=== PATIENT | female | born 1950 | race Caucasian/White ===

== ENCOUNTER → 2016-03-24 | Outpatient (REF) | payer MEDICARE, MEDICAID ==
[~2016-03-24] MED LIST: ACET-654 PO; AMLO5TAB2 PO; ASPI81TAEC PO; ATOR1TAB18 PO; BISA10SU PR; BISA10SU4 PR; CARV6.25 PO; ENAL5TAB PO; EXCETAB80 PO; EXCETAB81 PO; FISH1000 PO; IBUP40TA PO; LEG1TAB PO; MAGN250T9 PO; MAPA325T2 PO; METO25TAB PO; MIRA3350 PO; MUCI600T34 PO; ONDA1TAB15 PO; OXYC-517 PO; PANT40TA2 PO; PEG1POW PO; POTA10PO PO; POTA20TA PO; POTA99TA PO; SENN1TAB2 PO; SENN8.6T7 PO; TAGA200T3 PO; VITA20008 PO; ZOFR20TA PO
[2016-03-24 14:15] LABS: ANION GAP 8 MEQ/L (8-16); BLOOD UREA NITROGEN 17 MG/DL (7-18); CALCIUM LEVEL 9.2 MG/DL (8.8-10.2); CARBON DIOXIDE LEVEL 21 MEQ/L (21-32); CHLORIDE LEVEL 112 MEQ/L (98-107); GLOMERULAR FILTRATION RATE > 60.0 (>45); GLUCOSE, FASTING 76 MG/DL (80-110); POTASSIUM SERUM 4.7 MEQ/L (3.5-5.1); SODIUM LEVEL 141 MEQ/L (136-145)
== END ==
LOC: M SFHCPLAZ 09:51
PROVIDERS: ATTEND Physician Assistant Medical
DX: N13.2 Hydronephrosis with renal and ureteral calculous obstruction (principal)
CPT/HCPCS: 36415; 80048; G0463

== ENCOUNTER 2016-04-02 00:42 | Emergency (ER) | payer MEDICARE, MEDICAID ==
[2016-04-02] MEDS ORDERED: ISOVUE-370 76% 100ML VIAL (Q9967) As Ordered ONE (01:10)
[2016-04-02] MEDS ORDERED: ASPIRIN 81 MG CHEW TABLET As Ordered ONE (01:21)
[2016-04-02] MEDS ORDERED: MORPHINE 2 MG/ML 1ML SYRINGE As Ordered ONE (01:21)
[2016-04-02] MEDS ORDERED: ONDANSETRON 4MG/2ML VIAL (J2405) As Ordered ONE (01:21)
[2016-04-02 01:39] LABS: BASO % 0.4 % (0.0-1.0); EOS # 0.4 K/mm3 (0.0-0.50); EOS % 3.1 % (0.0-3.0); LARGE UNSTAINED CELL # 0.1 K/mm3 (0.0-0.4); LARGE UNSTAINED CELL % 0.8 % (0.0-4.0); LYMPH # 1.9 K/mm3 (1.5-4.5); LYMPH % 16.8 % (24.0-44.0); MEAN CORPUSCULAR HEMOGLOBIN 30.1 pg (27.0-33.0); MEAN CORPUSCULAR HGB CONC 32.5 g/dl (32.0-36.5); MEAN CORPUSCULAR VOLUME 92.4 fl (80.0-96.0); MONO # 0.5 K/mm3 (0.0-0.8); NEUTROPHILS # 8.4 K/mm3 (1.8-7.7); NEUTROPHILS % 74.8 % (36.0-66.0); PLATELET COUNT, AUTOMATED 356 k/mm3 (150-450); RED CELL DISTRIBUTION WIDTH 13.6 % (11.5-14.5); WHITE BLOOD COUNT 11.2 K/mm3 (4.0-10.0)
[2016-04-02 01:40] LABS: INR 0.98
[2016-04-02 01:49] LABS: ANION GAP 10 MEQ/L (8-16); BLOOD UREA NITROGEN 18 MG/DL (7-18); CALCIUM LEVEL 8.7 MG/DL (8.8-10.2); CARBON DIOXIDE LEVEL 22 MEQ/L (21-32); CHLORIDE LEVEL 111 MEQ/L (98-107); CREATININE FOR GFR 0.74 MG/DL (0.55-1.02); GLOMERULAR FILTRATION RATE > 60.0 (>45); GLUCOSE, FASTING 104 MG/DL (80-110); POTASSIUM SERUM 4.1 MEQ/L (3.5-5.1); SODIUM LEVEL 143 MEQ/L (136-145)
--- NOTE | 2016-04-02 02:20 | REPUSA ---
CLINICAL HISTORY: Dyspnea, exclude PE. TECHNIQUE: Multiple incremental axial, coronal and oblique images are obtained from the thoracic inle t to the upper abdomen. Intravenous contrast material was administered as per pulmonary embolism prot ocol. COMMENTS: There is excellent opacification of pulmonary arterial system without evidence for pulmonary embolism . Aorta is of normal caliber without evidence for dissection or aneurysm. There is no evidence of pleural or parenchymal mass. There are no pleural effusions. There is no evid ence of hilar or mediastinal lymphadenopathy. The heart and great vessels are within normal limits. Images of the upper abdomen demonstrate no evidence of adrenal mass. Moderate centrilobular emphysema . Bilateral apical pleural-parenchymal thickening. The bony structures are free of lytic or blastic lesions. Multilevel degenerative changes are seen in volving the visualized thoracolumbar spine. Scattered calcifications are seen involving the aorta and major branches compatible with atherosclero sis. IMPRESSION: No evidence for pulmonary embolism. Emphysema. Pulmonary hypertension. Thank you for your kind referral of this patient.
[2016-04-02] MEDS ORDERED: PERCOCET 5MG/325MG TAB As Ordered ONE (04:18)
--- NOTE | 2016-04-02 05:05 | EDDOCDS ---
Physician Documentation [facility] Name: Ruthy Farmer Age: 66 yrs Sex: Female : 1950 Arrival Date: 04/02/2016 Time: 00:42 Bed 7 Private MD: Disposition: 04/02/16 04:42 Discharged to Home/Self Care. Impression: Chest pain, unspecified. - Condition is Stable. - Discharge Instructions: Nonspecific Chest Pain. - Medication Reconciliation, Local Pharmacy Hours form. - Follow up: Dr. Jag Perdue; When: Call to arrange an appointment; Reason: Continuance of care. Follow up: Private Physician; When: Call to arrange an appointment; Reason: Continuance of care. - Problem is new. - Symptoms have improved. Historical: - Allergies: No known drug Allergies; - Home Meds: 1. acetaminophen 650 mg Oral cpER every 8 hours prn 2. aspirin 81 mg Oral tab 1 tab once daily 3. atorvastatin 80 mg oral tab 1 tab once daily 4. Bisacodyl 10 mg suppository Oral as needed 5. enalapril maleate 5 mg Oral tab once daily 6. Excedrin Extra Strength 250-250-65 mg Oral tab as needed 7. guaifenesin 600 mg Oral Ta12 BID PRN 8. metoprolol tartrate 25 mg Oral tab 2.5 tabs 2 times per day 9. oxycodone 5 mg Oral cap every 4 hours prn 10. pantoprazole 40 mg oral TbEC 1 tab once daily 11. polyethylene glycol 3350 17 gram oral pwpk 1 packet once daily 12. potassium chloride 20 mEq Oral pack daily 13. Senna Plus 8.6-50 mg oral tab 2 tabs twice a day 14. Zofran (as hydrochloride) 4 mg Oral tab every 6 hours - PMHx: GERD; Hypercholesterolemia; Hypertension; hypokalemia; Kidney stones; leg cramping; Migraine Headaches; ulcers; - PSHx: Gastric Bypass; Hip Arthroplasty, Left; - Social history: Smoking status: Patient uses tobacco products, heavy tobacco smoker. Patient/guardian denies using alcohol, street drugs, No barriers to communication noted, The patient speaks fluent Korean. - Family history: Not pertinent. - : The pt / caregiver states he / she is not on anticoagulants. Note only have info from computer. - Exposure Risk Screening:: None identified. Vital Signs: 04/02 01:04 BP 133 / 59; Pulse 73; Resp 16; Temp 98(TE); Pulse Ox 99% on R/A; Weight 41.28 kg / jp6 91.01 lbs; Height 5 ft. 5 in. (165.10 cm); Pain 6/10; 02:00 BP 128 / 78; Pulse 77; Resp 16; Pulse Ox 99% on R/A; Pain 4/10; jp6 03:21 BP 178 / 75 (auto/); jp6 03:23 Pulse Ox 96% ; jp6 03:24 Pulse 70 MON; Pulse Ox 97% ; jp6 04:21 BP 109 / 52 (auto/); jp6 04:21 Pulse 78 MON; jp6 05:01 BP 106 / 55; Pulse 71; Resp 16; Temp 98(O); Pulse Ox 98% on R/A; Pain 3/10; jp6 01:04 Body Mass Index 15.14 (41.28 kg, 165.10 cm) jp6 MDM: 00:45 ECG WITH READING ER PHYS+CARDIAG ordered. EDMS 00:45 ECG WITH READING ER PHYS+CARDIAG ordered. EDMS 00:56 Aspirin Chewable Tablet 324 mg PO once ordered. fg 00:56 Rivet Sticker/Pulse Ox/q 30 min VS ordered. fg 00:56 IV Saline Lock ordered. fg 00:56 Rhythm Strip to chart ordered. fg 00:56 Undress patient appropriately for examination ordered. fg 00:58 B-Type Natiuretic Peptide Ordered. EDMS 00:58 Basic Metabolic Profile Ordered. EDMS 00:58 CBC with Diff Ordered. EDMS 00:58 Cardiac Injury Profile Ordered. EDMS 00:58 Prothrombin Time Profile\E\INR Ordered. EDMS 00:58 Troponin Ordered. EDMS 00:58 portable chest Ordered. EDMS 01:04 CT Chest Angio R/O PE Ordered. EDMS 01:05 morphine 1 mg IVP once ordered. fg 01:05 Ondansetron 4 mg IVP once ordered. fg 02:50 Financial registration complete. hs2 02:54 [facility] Payment Agreement was scanned into [employer] and attached to record. hs2 04:07 Troponin Ordered. EDMS 04:13 oxyCODONE-acetaminophen 5 mg-325 mg 1 tabs PO once ordered. fg Administered Medications: 01:29 Drug: Ondansetron 4 mg Route: IVP; Site: left forearm; jp6 01:30 Drug: Aspirin 324 mg [aspirin 81 mg chewable tablet (4 tabs)] Route: PO; jp6 01:30 Drug: morphine 1 mg [morphine 2 mg/mL intravenous cartridge (0.5 mL)] Route: IVP; Site: jp6 left antecubital; 04:20 Drug: oxyCODONE-acetaminophen 1 tabs [oxycodone-acetaminophen 5 mg-325 mg tablet (1 cf2 tabs)] Route: PO; Signatures: Dispatcher [employer] EDZenobia Mo MD MD Suzi Negrete, Reg Reg hs2 Nesha Nascimento RN RN jp6 Daphney Vázquez RN cf2 The chart was reviewed and I authenticate all verbal orders and agree with the evaluation and treatment provided.Attachments: 02:54 [facility] Payment Agreement hs2 MTDD
--- NOTE | 2016-04-02 05:05 | EDDOCDS ---
Nurse's Notes [facility] Name: Ruthy Farmer Age: 66 yrs Sex: Female : 1950 Arrival Date: 04/02/2016 Time: 00:42 Bed 7 Private MD: Diagnosis: Chest pain, unspecified Presentation: 04/02 01:02 Presenting complaint: Patient states: Chest pain that started around 7pm tonight. jp6 Aspirin was not taken prior to arrival. Adult Sepsis Screening: The patient does not have new or worsening altered mentation. Patient's respiratory rate is less than 22. Systolic blood pressure is greater than 100. Patient has a qSOFA score of 0- Negative Sepsis Screen. Suicide/Homicide risk assessment- the patient denies having any suicidal and/or homicidal ideations and does not present with any other emotional, behavioral or mental health complaints. Status: Patient is not a technology services manager or dependent. Transition of care: patient was not received from another setting of care. 01:02 Acuity: ELIO Level 2 jp6 01:02 Method Of Arrival: Walkin/Carried/Asstd jp6 Triage Assessment: 01:04 General: Appears slender, uncomfortable, Behavior is anxious, appropriate for age, jp6 cooperative, restless. Pain: Location: chest Pain currently is 6 out of 10 on a pain scale. Pain does not radiate. Quality of pain is described as sharp. The patient is triaged at the bedside. See Assessment in Nurses Notes section of ED record. Neurological: No deficits noted. EENT: No deficits noted. Cardiovascular: Capillary refill < 3 seconds Heart tones S1 S2 Pulses are all present. Rhythm is sinus rhythm No ectopy. Chest pain is described as Pain is 6 out of 10 on a pain scale. radiates Does not radiate. episodes are continuous began since 7pm. Respiratory: No deficits noted. Breath sounds are clear bilaterally. GI: No deficits noted. : No deficits noted. Derm: Skin is pink, warm & dry. Musculoskeletal: No deficits noted. Historical: - Allergies: No known drug Allergies; - Home Meds: 1. acetaminophen 650 mg Oral cpER every 8 hours prn 2. aspirin 81 mg Oral tab 1 tab once daily 3. atorvastatin 80 mg oral tab 1 tab once daily 4. Bisacodyl 10 mg suppository Oral as needed 5. enalapril maleate 5 mg Oral tab once daily 6. Excedrin Extra Strength 250-250-65 mg Oral tab as needed 7. guaifenesin 600 mg Oral Ta12 BID PRN 8. metoprolol tartrate 25 mg Oral tab 2.5 tabs 2 times per day 9. oxycodone 5 mg Oral cap every 4 hours prn 10. pantoprazole 40 mg oral TbEC 1 tab once daily 11. polyethylene glycol 3350 17 gram oral pwpk 1 packet once daily 12. potassium chloride 20 mEq Oral pack daily 13. Senna Plus 8.6-50 mg oral tab 2 tabs twice a day 14. Zofran (as hydrochloride) 4 mg Oral tab every 6 hours - PMHx: GERD; Hypercholesterolemia; Hypertension; hypokalemia; Kidney stones; leg cramping; Migraine Headaches; ulcers; - PSHx: Gastric Bypass; Hip Arthroplasty, Left; - Social history: Smoking status: Patient uses tobacco products, heavy tobacco smoker. Patient/guardian denies using alcohol, street drugs, No barriers to communication noted, The patient speaks fluent Mexican. - Family history: Not pertinent. - : The pt / caregiver states he / she is not on anticoagulants. Note only have info from computer. - Exposure Risk Screening:: None identified. Screenin:14 Screening information is obtained from the patient. Fall risk: At risk due to prior 6 history of falls. Assistance ADL's: requires no assistance with activities of daily living. Abuse/DV Screen: The patient / caregiver reports he/she is: not in a situation that causes fear, pain or injury. Nutritional screening: No deficits noted. home support is adequate. 01:30 Advance Directives: Currently, there is a health care proxy, Ric Wilcox. [facility] Assessment: 01:14 Reassessment: see triage assessment. jp6 02:00 Reassessment: Patient appears in no apparent distress at this time. Patient states jp6 feeling better. Patient states symptoms have improved. General: Appears in no apparent distress, comfortable, Behavior is appropriate for age, cooperative. Pain: Denies pain. Neurological: Level of Consciousness is awake, alert, Oriented to person, place, time. EENT: No deficits noted. Cardiovascular: Rhythm is sinus rhythm No ectopy. Respiratory: No deficits noted. Airway is patent Respiratory effort is even, unlabored. GI: No deficits noted. : No deficits noted. Derm: Skin is pink, warm & dry. Musculoskeletal: No deficits noted. 03:11 Reassessment: Patient appears in no apparent distress at this time. Cardiovascular: jp6 Rhythm is sinus rhythm No ectopy. Respiratory: No deficits noted. Airway is patent Respiratory effort is even, unlabored. Derm: Skin is pink, warm & dry. 04:04 Reassessment: Patient appears in no apparent distress at this time. Pain: Denies pain. jp6 Cardiovascular: Rhythm is sinus rhythm No ectopy. Respiratory: Airway is patent Respiratory effort is even, unlabored. Derm: Skin is pink, warm & dry. 05:01 Reassessment: Patient appears in no apparent distress at this time. Patient states jp6 feeling better. Patient states symptoms have improved. Pain: Denies pain. Neurological: Level of Consciousness is awake, alert, Oriented to person, place, time. Cardiovascular: Rhythm is sinus rhythm No ectopy. Respiratory: Airway is patent Respiratory effort is even, unlabored. Derm: Skin is pink, warm & dry. Vital Signs: 01:04 BP 133 / 59; Pulse 73; Resp 16; Temp 98(TE); Pulse Ox 99% on R/A; Weight 41.28 kg; jp6 Height 5 ft. 5 in. (165.10 cm); Pain 6/10; 02:00 BP 128 / 78; Pulse 77; Resp 16; Pulse Ox 99% on R/A; Pain 4/10; jp6 03:21 BP 178 / 75 (auto/); jp6 03:23 Pulse Ox 96% ; jp6 03:24 Pulse 70 MON; Pulse Ox 97% ; jp6 04:21 BP 109 / 52 (auto/); jp6 04:21 Pulse 78 MON; jp6 05:01 BP 106 / 55; Pulse 71; Resp 16; Temp 98(O); Pulse Ox 98% on R/A; Pain 3/10; jp6 01:04 Body Mass Index 15.14 (41.28 kg, 165.10 cm) 6 Vitals: 01:04 Log In Time: April 02, 2016 at 00:50. 6 ED Course: 00:43 Patient visited by Kaleigh Sanchez. gjb 00:43 Patient moved to Waiting gjb 00:43 Patient moved to 7 gjb 00:48 Nesha Nascimento,RN is Primary Nurse. jp6 00:54 Pt greeted and oriented to ED. Patient advised of names of staff involved in care, anna location of call lopez, wait times and NPO status. Accompanied by Family Member, Patient has correct armband on for positive identification. Placed in gown. Bed in low position. Call light in reach. Side rails up X2. monitor car operator on. Pulse ox on. NIBP on. 00:54 EKG done. (by ED staff). Reviewed by Zenobia Lawrence MD. anna 00:55 Zenobia Lawrence MD is Attending Physician. fg 00:56 Patient visited by Zenobia Lawrence MD. fg 01:02 Triage Initiated jp6 01:14 The patient / caregiver is instructed regarding the plan of care and ED course. jp6 01:14 Missed attempts: 20 gauge X 2 in left wrist, in right forearm. jp6 01:30 No procedures done that require assistance. jp6 01:57 Patient visited by Nesha Nascimento RN. jp6 02:47 CT Chest Angio R/O PE Returned. EDMS 02:54 [facility] Payment Agreement was scanned into [employer] and attached to record. hs2 03:02 Patient visited by Nesha Nascimento RN. jp6 03:12 Inserted saline lock: 20 gauge in left antecubital area. jp6 04:04 Patient visited by Nesha Nascimento RN. jp6 04:13 Troponin Sent. cln 04:42 Jag Perdue MD is Referral Physician. fg 05:01 Discontinued lock intact, bleeding controlled, pressure dressing applied, No jp6 redness/swelling at site. Administered Medications: 01:29 Drug: Ondansetron 4 mg Route: IVP; Site: left forearm; jp6 01:30 Drug: Aspirin 324 mg [aspirin 81 mg chewable tablet (4 tabs)] Route: PO; jp6 01:30 Drug: morphine 1 mg [morphine 2 mg/mL intravenous cartridge (0.5 mL)] Route: IVP; Site: jp6 left antecubital; 04:20 Drug: oxyCODONE-acetaminophen 1 tabs [oxycodone-acetaminophen 5 mg-325 mg tablet (1 cf2 tabs)] Route: PO; Order Results: Lab Order: B-Type Natiuretic Peptide; SPEC'M 04/02/16 01:19 Test: BRAIN NATRIURETIC PEPTIDE; Value: 97.1; Range: <100; Units: PG/ML; Status: F Lab Order: Basic Metabolic Profile; SPEC'04/02/16 01:19 Test: GLUCOSE, FASTING; Value: 104; Range: 80-110; Units: MG/DL; Status: F Test: BLOOD UREA NITROGEN; Value: 18; Range: 7-18; Units: MG/DL; Status: F Test: CREATININE FOR GFR; Value: 0.74; Range: 0.55-1.02; Units: MG/DL; Status: F Test: GLOMERULAR FILTRATION RATE; Value: > 60.0; Range: >45; Status: F Test: SODIUM LEVEL; Value: 143; Range: 136-145; Units: MEQ/L; Status: F Test: POTASSIUM SERUM; Value: 4.1; Range: 3.5-5.1; Units: MEQ/L; Status: F Test: CHLORIDE LEVEL; Value: 111; Range: 98-107; Abnormal: Above high normal; Units: MEQ/L; Status: F Test: CARBON DIOXIDE LEVEL; Value: 22; Range: 21-32; Units: MEQ/L; Status: F Test: ANION GAP; Value: 10; Range: 8-16; Units: MEQ/L; Status: F Test: CALCIUM LEVEL; Value: 8.7; Range: 8.8-10.2; Abnormal: Below low normal; Units: MG/DL; Status: F Test Note: ; Units are mL/min/1.73 m2 Chronic Kidney Disease Staging per NKF: Stage I & II GFR >=60 Normal to Mildly Decreased Stage III GFR 30-59 Moderately Decreased Stage IV GFR 15-29 Severely Decreased Stage V GFR <15 Very Little GFR Left ESRD GFR <15 on TUBE CLEANING OPERATOR Lab Order: CBC with Diff; SPEC'04/02/16 01: Test: WHITE BLOOD COUNT; Value: 11.2; Range: 4.0-10.0; Abnormal: Above high normal; Units: K/mm3; Status: F Test: RED BLOOD COUNT; Value: 3.70; Range: 4.00-5.40; Abnormal: Below low normal; Units: M/mm3; Status: F Test: HEMOGLOBIN; Value: 11.1; Range: 12.0-16.0; Abnormal: Below low normal; Units: g/dl; Status: F Test: HEMATOCRIT; Value: 34.2; Range: 36.0-47.0; Abnormal: Below low normal; Units: %; Status: F Test: MEAN CORPUSCULAR VOLUME; Value: 92.4; Range: 80.0-96.0; Units: fl; Status: F Test: MEAN CORPUSCULAR HEMOGLOBIN; Value: 30.1; Range: 27.0-33.0; Units: pg; Status: F Test: MEAN CORPUSCULAR HGB CONC; Value: 32.5; Range: 32.0-36.5; Units: g/dl; Status: F Test: RED CELL DISTRIBUTION WIDTH; Value: 13.6; Range: 11.5-14.5; Units: %; Status: F Test: PLATELET COUNT, AUTOMATED; Value: 356; Range: 150-450; Units: k/mm3; Status: F Test: NEUTROPHILS %; Value: 74.8; Range: 36.0-66.0; Abnormal: Above high normal; Units: %; Status: F Test: LYMPH %; Value: 16.8; Range: 24.0-44.0; Abnormal: Below low normal; Units: %; Status: F Test: MONO %; Value: 4.0; Range: 0.0-5.0; Units: %; Status: F Test: EOS %; Value: 3.1; Range: 0.0-3.0; Abnormal: Above high normal; Units: %; Status: F Test: BASO %; Value: 0.4; Range: 0.0-1.0; Units: %; Status: F Test: LARGE UNSTAINED CELL %; Value: 0.8; Range: 0.0-4.0; Units: %; Status: F Test: NEUTROPHILS #; Value: 8.4; Range: 1.8-7.7; Abnormal: Above high normal; Units: K/mm3; Status: F Test: LYMPH #; Value: 1.9; Range: 1.5-4.5; Units: K/mm3; Status: F Test: MONO #; Value: 0.5; Range: 0.0-0.8; Units: K/mm3; Status: F Test: EOS #; Value: 0.4; Range: 0.0-0.50; Units: K/mm3; Status: F Test: BASO #; Value: 0.0; Range: 0.0-0.2; Units: K/mm3; Status: F Test: LARGE UNSTAINED CELL #; Value: 0.1; Range: 0.0-0.4; Units: K/mm3; Status: F Lab Order: Cardiac Injury Profile; 04/02/16 01:19 Test: CPK CREATINE PHOSPHOKINASE; Value: 34; Range: 26-192; Units: U/L; Status: F Test: CK-MB VALUE MASS; Value: 1.0; Range: 0.0-3.6; Units: NG/ML; Status: F Test: MB/CK RELATIVE INDEX; Value: 2.94; Range: < OR =4; Status: F Test Note: ; DIAGNOSIS CRITERIA MMB ng/ml Relative Index (RI) NON-AMI < or = 5 N/A IL ZONE > 5 < or = 4 AMI > 5 > 4 Lab Order: Prothrombin Time Profile\E\INR; 04/02/16 01:19 Test: PROTHROMBIN TIME; Value: 13.1; Range: 12.3-14.5; Units: SECONDS; Status: F Test: INR; Value: 0.98; Status: F Test Note: ; THERAPUTIC HUMAN INR VALUES INDICATIONS NORMAL RANGES PROPHYLAXIS/TREATMENT OF: VENOUS THROMBOSIS 2.0-3.0 PULMONARY EMBOLISM 2.0-3.0 PREVENTION OF SYSTEMIC EMBOLISM FROM: TISSUE HEART VALVES 2.0-3.0 ACUTE MYOCARDIAL INFARCTION 2.0-3.0 VALVULAR HEART DISEASE 2.0-3.0 ATRIAL FIBRILLATION 2.0-3.0 MECHANICAL VALVES(HIGH RISK) 2.5-3.5 RECURRENT MYOCARDIAL INFARCTION 2.5-3.5 Lab Order: Troponin; 04/02/16 01:19 Test: TROPONIN I; Value: < 0.02; Range: < 0.10; Units: NG/ML; Status: F Test Note: ; Troponin I Reference Interval for [employer] LOCI: 99th Percentile= 0.00-0.045 ng/ml Risk Stratification: <= 0.10 ng/ml Decreased Risk for Adverse Clinical Events. 0.10-1.50 ng/ml Increased Risk for Adverse Clinical Events. Evaluation of additional criterion and/or repeat testing in 2-6 hours is suggested to rule out myocardial damage. >= 1.50 ng/ml Indicative of Myocardial Injury. Lab Order: Troponin; SPEC'M 04/02/16 04:11 Test: TROPONIN I; Value: < 0.02; Range: < 0.10; Units: NG/ML; Status: F Test Note: ; Troponin I Reference Interval for [employer] LOCI: 99th Percentile= 0.00-0.045 ng/ml Risk Stratification: <= 0.10 ng/ml Decreased Risk for Adverse Clinical Events. 0.10-1.50 ng/ml Increased Risk for Adverse Clinical Events. Evaluation of additional criterion and/or repeat testing in 2-6 hours is suggested to rule out myocardial damage. >= 1.50 ng/ml Indicative of Myocardial Injury. Radiology Order: CT Chest Angio R/O PE Test: CT Chest Angio R/O PE REASON FOR EXAMINATION: Chest Pain; ; CLINICAL HISTORY: Dyspnea, exclude PE.; TECHNIQUE: Multiple incremental axial, coronal and oblique images are obtained from the thoracic inle; t to the upper abdomen. Intravenous contrast material was administered as per pulmonary embolism prot; ocol.; COMMENTS:; There is excellent opacification of pulmonary arterial system without evidence for pulmonary embolism; . Aorta is of normal caliber without evidence for dissection or aneurysm.; There is no evidence of pleural or parenchymal mass. There are no pleural effusions. There is no evid; ence of hilar or mediastinal lymphadenopathy. The heart and great vessels are within normal limits.; Images of the upper abdomen demonstrate no evidence of adrenal mass. Moderate centrilobular emphysema; . Bilateral apical pleural-parenchymal thickening.; The bony structures are free of lytic or blastic lesions. Multilevel degenerative changes are seen in; volving the visualized thoracolumbar spine.; Scattered calcifications are seen involving the aorta and major branches compatible with atherosclero; sis.; IMPRESSION:; No evidence for pulmonary embolism.; Emphysema.; Pulmonary hypertension.; Thank you for your kind referral of this patient.; ; Outcome: 04:42 Discharge ordered by Provider. fg 05:01 Discharge Assessment: Patient awake, alert and oriented x 3. No cognitive and/or jp6 functional deficits noted. Patient verbalized understanding of disposition instructions. patient administered narcotics - yes. Pt provided with safe discharge. The following High Risk Discharge criteria are identified: None. Discharged to home via wheelchair, with significant other. Condition: improved. Discharge instructions given to patient, Instructed on discharge instructions, follow up and referral plans. Demonstrated understanding of instructions, Pt was receptive of discharge instructions/ teaching. CT Study completed. Property sent home with patient. 05:03 Patient left the ED. jp6 Signatures: Dispatcher [employer] EDMS Idalia Briggs, FIREPROOF DOOR MAKER FIREPROOF DOOR MAKER Zenobia Sarah MD MD fg Beck, Gabriela gjb Suzi Negrete, Reg Reg hs2 Martine Kiser, FIREPROOF DOOR MAKER FIREPROOF DOOR MAKER Nesha Hagen,RN RN jp6 Daphney Vázquez,RN RN cf2 DERICK
--- NOTE | 2016-04-02 11:30 | REP ---
Semi upright AP portable chest 04/02/2016 Indication: Chest pain Comparison: PA and lateral chest 03/10/2016, CTA chest 03/07 Cardiomediastinal silhouette is of normal size. Atherosclerotic changes are noted in the thoracic aorta. There is biapical pleural thickening/scarring is apical small bullous change.. When compared with PA and lateral chest 03/10/2016 there is now cephalization of pulmonary vasculature consistent with pulmonary venous hypertension . Surgical clips are noted within the gastroesophageal junction Impression: Cardiac silhouette is of normal size. Biapical pleural thickening and bullous changes; COPD Pulmonary venous hypertension Signed by Daria Shore MD 04/02/2016 11:22 A
--- NOTE | 2016-04-03 07:18 | ECGEPIP ---
Stationary ECG Study [facility] - ED Test Date: 2016-04-02 Pat Name: JOE HILL Department: Room: - Gender: F Cone Baker Machine: NolascoB: [id number] Requested By: RIC Medel Order Number: [id number] Reading MD: Carmelina Maldonado Measurements Intervals [place] Rate: 76 P: 48 ID: [id number] QRS: 37 QRSD: 90 T: 63 QT: 342 QTc: 385 Interpretive Statements SINUS RHYTHM WITH SHORT ID INTERVAL MINIMAL VOLTAGE CRITERIA FOR LVH, CONSIDER NORMAL VARIANT MODERATE ST DEPRESSION Electronically Signed On 04-03-2016 7:18:44 EST by Carmelina Maldonado
--- NOTE | 2016-04-04 06:05 | EDDOCDS ---
Physician Documentation [facility] Name: Ruthy Farmer Age: 66 yrs Sex: Female : 1950 Arrival Date: 04/02/2016 Time: 00:42 Bed 7 Private MD: Disposition: 04/02/16 04:42 Discharged to Home/Self Care. Impression: Chest pain, unspecified. - Condition is Stable. - Discharge Instructions: Nonspecific Chest Pain. - Medication Reconciliation, Local Pharmacy Hours form. - Follow up: Dr. Jag Perdue; When: Call to arrange an appointment; Reason: Continuance of care. Follow up: Private Physician; When: Call to arrange an appointment; Reason: Continuance of care. - Problem is new. - Symptoms have improved. Historical: - Allergies: No known drug Allergies; - Home Meds: 1. acetaminophen 650 mg Oral cpER every 8 hours prn 2. aspirin 81 mg Oral tab 1 tab once daily 3. atorvastatin 80 mg oral tab 1 tab once daily 4. Bisacodyl 10 mg suppository Oral as needed 5. enalapril maleate 5 mg Oral tab once daily 6. Excedrin Extra Strength 250-250-65 mg Oral tab as needed 7. guaifenesin 600 mg Oral Ta12 BID PRN 8. metoprolol tartrate 25 mg Oral tab 2.5 tabs 2 times per day 9. oxycodone 5 mg Oral cap every 4 hours prn 10. pantoprazole 40 mg oral TbEC 1 tab once daily 11. polyethylene glycol 3350 17 gram oral pwpk 1 packet once daily 12. potassium chloride 20 mEq Oral pack daily 13. Senna Plus 8.6-50 mg oral tab 2 tabs twice a day 14. Zofran (as hydrochloride) 4 mg Oral tab every 6 hours - PMHx: GERD; Hypercholesterolemia; Hypertension; hypokalemia; Kidney stones; leg cramping; Migraine Headaches; ulcers; - PSHx: Gastric Bypass; Hip Arthroplasty, Left; - Social history: Smoking status: Patient uses tobacco products, heavy tobacco smoker. Patient/guardian denies using alcohol, street drugs, No barriers to communication noted, The patient speaks fluent Yakut. - Family history: Not pertinent. - : The pt / caregiver states he / she is not on anticoagulants. Note only have info from computer. - Exposure Risk Screening:: None identified. Vital Signs: 04/02 01:04 BP 133 / 59; Pulse 73; Resp 16; Temp 98(TE); Pulse Ox 99% on R/A; Weight 41.28 kg / jp6 91.01 lbs; Height 5 ft. 5 in. (165.10 cm); Pain 6/10; 02:00 BP 128 / 78; Pulse 77; Resp 16; Pulse Ox 99% on R/A; Pain 4/10; jp6 03:21 BP 178 / 75 (auto/); jp6 03:23 Pulse Ox 96% ; jp6 03:24 Pulse 70 MON; Pulse Ox 97% ; jp6 04:21 BP 109 / 52 (auto/); jp6 04:21 Pulse 78 MON; jp6 05:01 BP 106 / 55; Pulse 71; Resp 16; Temp 98(O); Pulse Ox 98% on R/A; Pain 3/10; jp6 01:04 Body Mass Index 15.14 (41.28 kg, 165.10 cm) jp6 MDM: 00:45 ECG WITH READING ER PHYS+CARDIAG ordered. EDMS 00:45 ECG WITH READING ER PHYS+CARDIAG ordered. EDMS 00:56 Aspirin Chewable Tablet 324 mg PO once ordered. fg 00:56 Leather Case Finisher/Pulse Ox/q 30 min VS ordered. fg 00:56 IV Saline Lock ordered. fg 00:56 Rhythm Strip to chart ordered. fg 00:56 Undress patient appropriately for examination ordered. fg 00:58 B-Type Natiuretic Peptide Ordered. EDMS 00:58 Basic Metabolic Profile Ordered. EDMS 00:58 CBC with Diff Ordered. EDMS 00:58 Cardiac Injury Profile Ordered. EDMS 00:58 Prothrombin Time Profile\E\INR Ordered. EDMS 00:58 Troponin Ordered. EDMS 00:58 portable chest Ordered. EDMS 01:04 CT Chest Angio R/O PE Ordered. EDMS 01:05 morphine 1 mg IVP once ordered. fg 01:05 Ondansetron 4 mg IVP once ordered. fg 02:50 Financial registration complete. hs2 02:54 [facility] Payment Agreement was scanned into [employer] and attached to record. hs2 04:07 Troponin Ordered. EDMS 04:13 oxyCODONE-acetaminophen 5 mg-325 mg 1 tabs PO once ordered. fg 13:49 T-Sheet-- Draft Copy was scanned into [employer] and attached to record. gb 13:49 ECG/EKG was scanned into [employer] and attached to record. gb 13:49 Trend VS was scanned into [employer] and attached to record. gb 13:50 Radiology Report was scanned into [employer] and attached to record. gb Administered Medications: 01:29 Drug: Ondansetron 4 mg Route: IVP; Site: left forearm; jp6 01:30 Drug: Aspirin 324 mg [aspirin 81 mg chewable tablet (4 tabs)] Route: PO; jp6 01:30 Drug: morphine 1 mg [morphine 2 mg/mL intravenous cartridge (0.5 mL)] Route: IVP; Site: jp6 left antecubital; 04:20 Drug: oxyCODONE-acetaminophen 1 tabs [oxycodone-acetaminophen 5 mg-325 mg tablet (1 cf2 tabs)] Route: PO; Signatures: Dispatcher [employer] EDMS Nanda Juan, Reg Reg gb Zenobia Lawrence MD MD Suzi Negrete, Reg Reg hs2 Nesha Nascimento,RN RN jp6 Daphney Vázquez RN cf2 The chart was reviewed and I authenticate all verbal orders and agree with the evaluation and treatment provided.Attachments: 02:54 [facility] Payment Agreement hs2 13:49 T-Sheet-- Draft Copy gb 13:49 ECG/EKG gb Chart Complete MTDD
--- NOTE | 2016-04-04 06:05 | EDDOCDS ---
Physician Documentation [facility] Name: Ruthy Farmer Age: 66 yrs Sex: Female : 1950 Arrival Date: 04/02/2016 Time: 00:42 Bed 7 Private MD: Disposition: 04/02/16 04:42 Discharged to Home/Self Care. Impression: Chest pain, unspecified. - Condition is Stable. - Discharge Instructions: Nonspecific Chest Pain. - Medication Reconciliation, Local Pharmacy Hours form. - Follow up: Dr. Jag Perdue; When: Call to arrange an appointment; Reason: Continuance of care. Follow up: Private Physician; When: Call to arrange an appointment; Reason: Continuance of care. - Problem is new. - Symptoms have improved. Historical: - Allergies: No known drug Allergies; - Home Meds: 1. acetaminophen 650 mg Oral cpER every 8 hours prn 2. aspirin 81 mg Oral tab 1 tab once daily 3. atorvastatin 80 mg oral tab 1 tab once daily 4. Bisacodyl 10 mg suppository Oral as needed 5. enalapril maleate 5 mg Oral tab once daily 6. Excedrin Extra Strength 250-250-65 mg Oral tab as needed 7. guaifenesin 600 mg Oral Ta12 BID PRN 8. metoprolol tartrate 25 mg Oral tab 2.5 tabs 2 times per day 9. oxycodone 5 mg Oral cap every 4 hours prn 10. pantoprazole 40 mg oral TbEC 1 tab once daily 11. polyethylene glycol 3350 17 gram oral pwpk 1 packet once daily 12. potassium chloride 20 mEq Oral pack daily 13. Senna Plus 8.6-50 mg oral tab 2 tabs twice a day 14. Zofran (as hydrochloride) 4 mg Oral tab every 6 hours - PMHx: GERD; Hypercholesterolemia; Hypertension; hypokalemia; Kidney stones; leg cramping; Migraine Headaches; ulcers; - PSHx: Gastric Bypass; Hip Arthroplasty, Left; - Social history: Smoking status: Patient uses tobacco products, heavy tobacco smoker. Patient/guardian denies using alcohol, street drugs, No barriers to communication noted, The patient speaks fluent Georgian. - Family history: Not pertinent. - : The pt / caregiver states he / she is not on anticoagulants. Note only have info from computer. - Exposure Risk Screening:: None identified. Vital Signs: 04/02 01:04 BP 133 / 59; Pulse 73; Resp 16; Temp 98(TE); Pulse Ox 99% on R/A; Weight 41.28 kg / jp6 91.01 lbs; Height 5 ft. 5 in. (165.10 cm); Pain 6/10; 02:00 BP 128 / 78; Pulse 77; Resp 16; Pulse Ox 99% on R/A; Pain 4/10; jp6 03:21 BP 178 / 75 (auto/); jp6 03:23 Pulse Ox 96% ; jp6 03:24 Pulse 70 MON; Pulse Ox 97% ; jp6 04:21 BP 109 / 52 (auto/); jp6 04:21 Pulse 78 MON; jp6 05:01 BP 106 / 55; Pulse 71; Resp 16; Temp 98(O); Pulse Ox 98% on R/A; Pain 3/10; jp6 01:04 Body Mass Index 15.14 (41.28 kg, 165.10 cm) jp6 MDM: 00:45 ECG WITH READING ER PHYS+CARDIAG ordered. EDMS 00:45 ECG WITH READING ER PHYS+CARDIAG ordered. EDMS 00:56 Aspirin Chewable Tablet 324 mg PO once ordered. fg 00:56 Batteryman/Pulse Ox/q 30 min VS ordered. fg 00:56 IV Saline Lock ordered. fg 00:56 Rhythm Strip to chart ordered. fg 00:56 Undress patient appropriately for examination ordered. fg 00:58 B-Type Natiuretic Peptide Ordered. EDMS 00:58 Basic Metabolic Profile Ordered. EDMS 00:58 CBC with Diff Ordered. EDMS 00:58 Cardiac Injury Profile Ordered. EDMS 00:58 Prothrombin Time Profile\E\INR Ordered. EDMS 00:58 Troponin Ordered. EDMS 00:58 portable chest Ordered. EDMS 01:04 CT Chest Angio R/O PE Ordered. EDMS 01:05 morphine 1 mg IVP once ordered. fg 01:05 Ondansetron 4 mg IVP once ordered. fg 02:50 Financial registration complete. hs2 02:54 [facility] Payment Agreement was scanned into [employer] and attached to record. hs2 04:07 Troponin Ordered. EDMS 04:13 oxyCODONE-acetaminophen 5 mg-325 mg 1 tabs PO once ordered. fg 13:49 T-Sheet-- Draft Copy was scanned into [employer] and attached to record. gb 13:49 ECG/EKG was scanned into [employer] and attached to record. gb 13:49 Trend VS was scanned into [employer] and attached to record. gb 13:50 Radiology Report was scanned into [employer] and attached to record. gb Administered Medications: 01:29 Drug: Ondansetron 4 mg Route: IVP; Site: left forearm; jp6 01:30 Drug: Aspirin 324 mg [aspirin 81 mg chewable tablet (4 tabs)] Route: PO; jp6 01:30 Drug: morphine 1 mg [morphine 2 mg/mL intravenous cartridge (0.5 mL)] Route: IVP; Site: jp6 left antecubital; 04:20 Drug: oxyCODONE-acetaminophen 1 tabs [oxycodone-acetaminophen 5 mg-325 mg tablet (1 cf2 tabs)] Route: PO; Signatures: Dispatcher [employer] EDMS Nanda Juan, Reg Reg gb Zenobia Lawrence MD MD Suzi Negrete, Reg Reg hs2 Nesha Nascimento,RN RN jp6 Daphney Vázquez RN cf2 The chart was reviewed and I authenticate all verbal orders and agree with the evaluation and treatment provided.Attachments: 02:54 [facility] Payment Agreement hs2 13:49 T-Sheet-- Draft Copy gb 13:49 ECG/EKG gb Chart Complete MTDD
--- NOTE | 2016-04-04 06:05 | EDDOCDS ---
Nurse's Notes [facility] Name: Ruthy Hill Age: 66 yrs Sex: Female : 1950 Arrival Date: 04/02/2016 Time: 00:42 Bed 7 Private MD: Diagnosis: Chest pain, unspecified Presentation: 04/02 01:02 Presenting complaint: Patient states: Chest pain that started around 7pm tonight. jp6 Aspirin was not taken prior to arrival. Adult Sepsis Screening: The patient does not have new or worsening altered mentation. Patient's respiratory rate is less than 22. Systolic blood pressure is greater than 100. Patient has a qSOFA score of 0- Negative Sepsis Screen. Suicide/Homicide risk assessment- the patient denies having any suicidal and/or homicidal ideations and does not present with any other emotional, behavioral or mental health complaints. Status: Patient is not a service desk agent or dependent. Transition of care: patient was not received from another setting of care. 01:02 Acuity: ELIO Level 2 jp6 01:02 Method Of Arrival: Walkin/Carried/Asstd jp6 Triage Assessment: 01:04 General: Appears slender, uncomfortable, Behavior is anxious, appropriate for age, jp6 cooperative, restless. Pain: Location: chest Pain currently is 6 out of 10 on a pain scale. Pain does not radiate. Quality of pain is described as sharp. The patient is triaged at the bedside. See Assessment in Nurses Notes section of ED record. Neurological: No deficits noted. EENT: No deficits noted. Cardiovascular: Capillary refill < 3 seconds Heart tones S1 S2 Pulses are all present. Rhythm is sinus rhythm No ectopy. Chest pain is described as Pain is 6 out of 10 on a pain scale. radiates Does not radiate. episodes are continuous began since 7pm. Respiratory: No deficits noted. Breath sounds are clear bilaterally. GI: No deficits noted. : No deficits noted. Derm: Skin is pink, warm & dry. Musculoskeletal: No deficits noted. Historical: - Allergies: No known drug Allergies; - Home Meds: 1. acetaminophen 650 mg Oral cpER every 8 hours prn 2. aspirin 81 mg Oral tab 1 tab once daily 3. atorvastatin 80 mg oral tab 1 tab once daily 4. Bisacodyl 10 mg suppository Oral as needed 5. enalapril maleate 5 mg Oral tab once daily 6. Excedrin Extra Strength 250-250-65 mg Oral tab as needed 7. guaifenesin 600 mg Oral Ta12 BID PRN 8. metoprolol tartrate 25 mg Oral tab 2.5 tabs 2 times per day 9. oxycodone 5 mg Oral cap every 4 hours prn 10. pantoprazole 40 mg oral TbEC 1 tab once daily 11. polyethylene glycol 3350 17 gram oral pwpk 1 packet once daily 12. potassium chloride 20 mEq Oral pack daily 13. Senna Plus 8.6-50 mg oral tab 2 tabs twice a day 14. Zofran (as hydrochloride) 4 mg Oral tab every 6 hours - PMHx: GERD; Hypercholesterolemia; Hypertension; hypokalemia; Kidney stones; leg cramping; Migraine Headaches; ulcers; - PSHx: Gastric Bypass; Hip Arthroplasty, Left; - Social history: Smoking status: Patient uses tobacco products, heavy tobacco smoker. Patient/guardian denies using alcohol, street drugs, No barriers to communication noted, The patient speaks fluent Danish. - Family history: Not pertinent. - : The pt / caregiver states he / she is not on anticoagulants. Note only have info from computer. - Exposure Risk Screening:: None identified. Screenin:14 Screening information is obtained from the patient. Fall risk: At risk due to prior 6 history of falls. Assistance ADL's: requires no assistance with activities of daily living. Abuse/DV Screen: The patient / caregiver reports he/she is: not in a situation that causes fear, pain or injury. Nutritional screening: No deficits noted. home support is adequate. 01:30 Advance Directives: Currently, there is a health care proxy, Ric Wilcox. [facility] Assessment: 01:14 Reassessment: see triage assessment. jp6 02:00 Reassessment: Patient appears in no apparent distress at this time. Patient states jp6 feeling better. Patient states symptoms have improved. General: Appears in no apparent distress, comfortable, Behavior is appropriate for age, cooperative. Pain: Denies pain. Neurological: Level of Consciousness is awake, alert, Oriented to person, place, time. EENT: No deficits noted. Cardiovascular: Rhythm is sinus rhythm No ectopy. Respiratory: No deficits noted. Airway is patent Respiratory effort is even, unlabored. GI: No deficits noted. : No deficits noted. Derm: Skin is pink, warm & dry. Musculoskeletal: No deficits noted. 03:11 Reassessment: Patient appears in no apparent distress at this time. Cardiovascular: jp6 Rhythm is sinus rhythm No ectopy. Respiratory: No deficits noted. Airway is patent Respiratory effort is even, unlabored. Derm: Skin is pink, warm & dry. 04:04 Reassessment: Patient appears in no apparent distress at this time. Pain: Denies pain. jp6 Cardiovascular: Rhythm is sinus rhythm No ectopy. Respiratory: Airway is patent Respiratory effort is even, unlabored. Derm: Skin is pink, warm & dry. 05:01 Reassessment: Patient appears in no apparent distress at this time. Patient states jp6 feeling better. Patient states symptoms have improved. Pain: Denies pain. Neurological: Level of Consciousness is awake, alert, Oriented to person, place, time. Cardiovascular: Rhythm is sinus rhythm No ectopy. Respiratory: Airway is patent Respiratory effort is even, unlabored. Derm: Skin is pink, warm & dry. Vital Signs: 01:04 BP 133 / 59; Pulse 73; Resp 16; Temp 98(TE); Pulse Ox 99% on R/A; Weight 41.28 kg; jp6 Height 5 ft. 5 in. (165.10 cm); Pain 6/10; 02:00 BP 128 / 78; Pulse 77; Resp 16; Pulse Ox 99% on R/A; Pain 4/10; jp6 03:21 BP 178 / 75 (auto/); jp6 03:23 Pulse Ox 96% ; jp6 03:24 Pulse 70 MON; Pulse Ox 97% ; jp6 04:21 BP 109 / 52 (auto/); jp6 04:21 Pulse 78 MON; jp6 05:01 BP 106 / 55; Pulse 71; Resp 16; Temp 98(O); Pulse Ox 98% on R/A; Pain 3/10; jp6 01:04 Body Mass Index 15.14 (41.28 kg, 165.10 cm) 6 Vitals: 01:04 Log In Time: April 02, 2016 at 00:50. 6 ED Course: 00:43 Patient visited by Kaleigh Sanchez. gjb 00:43 Patient moved to Waiting gjb 00:43 Patient moved to 7 gjb 00:48 Nesha Nascimento,RN is Primary Nurse. jp6 00:54 Pt greeted and oriented to ED. Patient advised of names of staff involved in care, anna location of call lopez, wait times and NPO status. Accompanied by Family Member, Patient has correct armband on for positive identification. Placed in gown. Bed in low position. Call light in reach. Side rails up X2. trauma nurse on. Pulse ox on. NIBP on. 00:54 EKG done. (by ED staff). Reviewed by Zenobia Lawrence MD. anna 00:55 Zenobia Lawrence MD is Attending Physician. fg 00:56 Patient visited by Zenobia Lawrence MD. fg 01:02 Triage Initiated jp6 01:14 The patient / caregiver is instructed regarding the plan of care and ED course. jp6 01:14 Missed attempts: 20 gauge X 2 in left wrist, in right forearm. jp6 01:30 No procedures done that require assistance. jp6 01:57 Patient visited by Nesha Nascimento RN. jp6 02:47 CT Chest Angio R/O PE Returned. EDMS 02:54 [facility] Payment Agreement was scanned into [employer] and attached to record. hs2 03:02 Patient visited by Nesha Nascimento RN. jp6 03:12 Inserted saline lock: 20 gauge in left antecubital area. jp6 04:04 Patient visited by Nesha Nascimento RN. jp6 04:13 Troponin Sent. cln 04:42 Jag Perdue MD is Referral Physician. fg 05:01 Discontinued lock intact, bleeding controlled, pressure dressing applied, No jp6 redness/swelling at site. 11:41 portable chest Returned. EDMS 13:49 T-Sheet-- Draft Copy was scanned into [employer] and attached to record. gb 13:49 ECG/EKG was scanned into [employer] and attached to record. gb 13:49 Trend VS was scanned into [employer] and attached to record. gb 13:50 Radiology Report was scanned into [employer] and attached to record. gb 04/03 07:41 EKG-ADULT Returned. EDMS Administered Medications: 04/02 01:29 Drug: Ondansetron 4 mg Route: IVP; Site: left forearm; jp6 01:30 Drug: Aspirin 324 mg [aspirin 81 mg chewable tablet (4 tabs)] Route: PO; jp6 01:30 Drug: morphine 1 mg [morphine 2 mg/mL intravenous cartridge (0.5 mL)] Route: IVP; Site: jp6 left antecubital; 04:20 Drug: oxyCODONE-acetaminophen 1 tabs [oxycodone-acetaminophen 5 mg-325 mg tablet (1 cf2 tabs)] Route: PO; Attachments: 13:49 Trend VS gb Order Results: Lab Order: B-Type Natiuretic Peptide; SPEC'M 04/02/16 01:19 Test: BRAIN NATRIURETIC PEPTIDE; Value: 97.1; Range: <100; Units: PG/ML; Status: F Lab Order: Basic Metabolic Profile; SPEC'M 04/02/16 01:19 Test: GLUCOSE, FASTING; Value: 104; Range: 80-110; Units: MG/DL; Status: F Test: BLOOD UREA NITROGEN; Value: 18; Range: 7-18; Units: MG/DL; Status: F Test: CREATININE FOR GFR; Value: 0.74; Range: 0.55-1.02; Units: MG/DL; Status: F Test: GLOMERULAR FILTRATION RATE; Value: > 60.0; Range: >45; Status: F Test: SODIUM LEVEL; Value: 143; Range: 136-145; Units: MEQ/L; Status: F Test: POTASSIUM SERUM; Value: 4.1; Range: 3.5-5.1; Units: MEQ/L; Status: F Test: CHLORIDE LEVEL; Value: 111; Range: 98-107; Abnormal: Above high normal; Units: MEQ/L; Status: F Test: CARBON DIOXIDE LEVEL; Value: 22; Range: 21-32; Units: MEQ/L; Status: F Test: ANION GAP; Value: 10; Range: 8-16; Units: MEQ/L; Status: F Test: CALCIUM LEVEL; Value: 8.7; Range: 8.8-10.2; Abnormal: Below low normal; Units: MG/DL; Status: F Test Note: ; Units are mL/min/1.73 m2 Chronic Kidney Disease Staging per NKF: Stage I & II GFR >=60 Normal to Mildly Decreased Stage III GFR 30-59 Moderately Decreased Stage IV GFR 15-29 Severely Decreased Stage V GFR <15 Very Little GFR Left ESRD GFR <15 on GROUP CARE WORKER Lab Order: CBC with Diff; SPEC'M 04/02/16 01:19 Test: WHITE BLOOD COUNT; Value: 11.2; Range: 4.0-10.0; Abnormal: Above high normal; Units: K/mm3; Status: F Test: RED BLOOD COUNT; Value: 3.70; Range: 4.00-5.40; Abnormal: Below low normal; Units: M/mm3; Status: F Test: HEMOGLOBIN; Value: 11.1; Range: 12.0-16.0; Abnormal: Below low normal; Units: g/dl; Status: F Test: HEMATOCRIT; Value: 34.2; Range: 36.0-47.0; Abnormal: Below low normal; Units: %; Status: F Test: MEAN CORPUSCULAR VOLUME; Value: 92.4; Range: 80.0-96.0; Units: fl; Status: F Test: MEAN CORPUSCULAR HEMOGLOBIN; Value: 30.1; Range: 27.0-33.0; Units: pg; Status: F Test: MEAN CORPUSCULAR HGB CONC; Value: 32.5; Range: 32.0-36.5; Units: g/dl; Status: F Test: RED CELL DISTRIBUTION WIDTH; Value: 13.6; Range: 11.5-14.5; Units: %; Status: F Test: PLATELET COUNT, AUTOMATED; Value: 356; Range: 150-450; Units: k/mm3; Status: F Test: NEUTROPHILS %; Value: 74.8; Range: 36.0-66.0; Abnormal: Above high normal; Units: %; Status: F Test: LYMPH %; Value: 16.8; Range: 24.0-44.0; Abnormal: Below low normal; Units: %; Status: F Test: MONO %; Value: 4.0; Range: 0.0-5.0; Units: %; Status: F Test: EOS %; Value: 3.1; Range: 0.0-3.0; Abnormal: Above high normal; Units: %; Status: F Test: BASO %; Value: 0.4; Range: 0.0-1.0; Units: %; Status: F Test: LARGE UNSTAINED CELL %; Value: 0.8; Range: 0.0-4.0; Units: %; Status: F Test: NEUTROPHILS #; Value: 8.4; Range: 1.8-7.7; Abnormal: Above high normal; Units: K/mm3; Status: F Test: LYMPH #; Value: 1.9; Range: 1.5-4.5; Units: K/mm3; Status: F Test: MONO #; Value: 0.5; Range: 0.0-0.8; Units: K/mm3; Status: F Test: EOS #; Value: 0.4; Range: 0.0-0.50; Units: K/mm3; Status: F Test: BASO #; Value: 0.0; Range: 0.0-0.2; Units: K/mm3; Status: F Test: LARGE UNSTAINED CELL #; Value: 0.1; Range: 0.0-0.4; Units: K/mm3; Status: F Lab Order: Cardiac Injury Profile; SPEC'M 04/02/16 01:19 Test: CPK CREATINE PHOSPHOKINASE; Value: 34; Range: 26-192; Units: U/L; Status: F Test: CK-MB VALUE MASS; Value: 1.0; Range: 0.0-3.6; Units: NG/ML; Status: F Test: MB/CK RELATIVE INDEX; Value: 2.94; Range: < OR =4; Status: F Test Note: ; DIAGNOSIS CRITERIA MMB ng/ml Relative Index (RI) NON-AMI < or = 5 N/A LI ZONE > 5 < or = 4 AMI > 5 > 4 Lab Order: Prothrombin Time Profile\E\INR; SPEC'04/02/16 01:19 Test: PROTHROMBIN TIME; Value: 13.1; Range: 12.3-14.5; Units: SECONDS; Status: F Test: INR; Value: 0.98; Status: F Test Note: ; THERAPUTIC HUMAN INR VALUES INDICATIONS NORMAL RANGES PROPHYLAXIS/TREATMENT OF: VENOUS THROMBOSIS 2.0-3.0 PULMONARY EMBOLISM 2.0-3.0 PREVENTION OF SYSTEMIC EMBOLISM FROM: TISSUE HEART VALVES 2.0-3.0 ACUTE MYOCARDIAL INFARCTION 2.0-3.0 VALVULAR HEART DISEASE 2.0-3.0 ATRIAL FIBRILLATION 2.0-3.0 MECHANICAL VALVES(HIGH RISK) 2.5-3.5 RECURRENT MYOCARDIAL INFARCTION 2.5-3.5 Lab Order: Troponin; SPEC'M 04/02/16 01:19 Test: TROPONIN I; Value: < 0.02; Range: < 0.10; Units: NG/ML; Status: F Test Note: ; Troponin I Reference Interval for [employer] [place] LOCI: 99th Percentile= 0.00-0.045 ng/ml Risk Stratification: <= 0.10 ng/ml Decreased Risk for Adverse Clinical Events. 0.10-1.50 ng/ml Increased Risk for Adverse Clinical Events. Evaluation of additional criterion and/or repeat testing in 2-6 hours is suggested to rule out myocardial damage. >= 1.50 ng/ml Indicative of Myocardial Injury. Lab Order: Troponin; SPEC'M 04/02/16 04:11 Test: TROPONIN I; Value: < 0.02; Range: < 0.10; Units: NG/ML; Status: F Test Note: ; Troponin I Reference Interval for Siem[employer] [place] LOCI: 99th Percentile= 0.00-0.045 ng/ml Risk Stratification: <= 0.10 ng/ml Decreased Risk for Adverse Clinical Events. 0.10-1.50 ng/ml Increased Risk for Adverse Clinical Events. Evaluation of additional criterion and/or repeat testing in 2-6 hours is suggested to rule out myocardial damage. >= 1.50 ng/ml Indicative of Myocardial Injury. Radiology Order: EKG-ADULT Test: EKG-ADULT REASON FOR EXAMINATION: Chest Pain; Stationary ECG Study; [facility] - ED; ; Test Date: 2016-04-02; Pat Name: RUTHY HILL Department:; Room: -; Gender: F Camp Recreation Specialist: francisco; : 1950 Requested By: ZENOBIA Medel; Order Number: [id number] Reading MD: Carmelina Maldonado; Measurements; Intervals [place]; Rate: 76 P: 48; MO: 118 QRS: 37; QRSD: 90 T: 63; QT: 342; QTc: 385; Interpretive Statements; SINUS RHYTHM WITH SHORT MO INTERVAL; MINIMAL VOLTAGE CRITERIA FOR LVH, CONSIDER NORMAL VARIANT; MODERATE ST DEPRESSION; ; Electronically Signed On 04-03-2016 7:18:44 EST by Carmelina Hill-Farias; Radiology Order: portable chest Test: portable chest REASON FOR EXAMINATION: Chest Pain; Semi upright AP portable chest 04/02/2016; ; Indication: Chest pain; ; Comparison: PA and lateral chest 03/10/2016, CTA chest 03/07; ; Cardiomediastinal silhouette is of normal size. Atherosclerotic changes are; noted in the thoracic aorta. There is biapical pleural thickening/scarring is; apical small bullous change.. When compared with PA and lateral chest 03/10/2016; there is now cephalization of pulmonary vasculature consistent with pulmonary; venous hypertension .; ; Surgical clips are noted within the gastroesophageal junction; ; Impression:; ; Cardiac silhouette is of normal size.; ; Biapical pleural thickening and bullous changes; COPD; ; Pulmonary venous hypertension; ; ; Signed by; Daria Shore MD 04/02/2016 11:22 A; Radiology Order: CT Chest Angio R/O PE Test: CT Chest Angio R/O PE REASON FOR EXAMINATION: Chest Pain; ; CLINICAL HISTORY: Dyspnea, exclude PE.; TECHNIQUE: Multiple incremental axial, coronal and oblique images are obtained from the thoracic inle; t to the upper abdomen. Intravenous contrast material was administered as per pulmonary embolism prot; ocol.; COMMENTS:; There is excellent opacification of pulmonary arterial system without evidence for pulmonary embolism; . Aorta is of normal caliber without evidence for dissection or aneurysm.; There is no evidence of pleural or parenchymal mass. There are no pleural effusions. There is no evid; ence of hilar or mediastinal lymphadenopathy. The heart and great vessels are within normal limits.; Images of the upper abdomen demonstrate no evidence of adrenal mass. Moderate centrilobular emphysema; . Bilateral apical pleural-parenchymal thickening.; The bony structures are free of lytic or blastic lesions. Multilevel degenerative changes are seen in; volving the visualized thoracolumbar spine.; Scattered calcifications are seen involving the aorta and major branches compatible with atherosclero; sis.; IMPRESSION:; No evidence for pulmonary embolism.; Emphysema.; Pulmonary hypertension.; Thank you for your kind referral of this patient.; ; Outcome: 04:42 Discharge ordered by Provider. fg 05:01 Discharge Assessment: Patient awake, alert and oriented x 3. No cognitive and/or jp6 functional deficits noted. Patient verbalized understanding of disposition instructions. patient administered narcotics - yes. Pt provided with safe discharge. The following High Risk Discharge criteria are identified: None. Discharged to home via wheelchair, with significant other. Condition: improved. Discharge instructions given to patient, Instructed on discharge instructions, follow up and referral plans. Demonstrated understanding of instructions, Pt was receptive of discharge instructions/ teaching. CT Study completed. Property sent home with patient. 05:03 Patient left the ED. jp6 Signatures: Dispatcher [employer] EDMS Nanda Juan, Reg Reg gb Chester, Idalia, GRAVITY PROSPECTING OBSERVER HELPER GRAVITY PROSPECTING OBSERVER HELPER Zenobia Sarah MD MD fg Beck, Gabriela gjb Suzi Negrete, Reg Reg hs2 Martine Kiser, GRAVITY PROSPECTING OBSERVER HELPER GRAVITY PROSPECTING OBSERVER HELPER Nesha HagenRN RN jp6 Daphney Vázquez,RN RN cf2 Chart Complete MARYD
== END 2016-04-02 05:03 | disposition home or self-care (01) ==
LOC: M ED 00:42
DX: R07.9 Chest pain, unspecified (principal); I10 Essential (primary) hypertension; I25.2 Old myocardial infarction; K21.9 Gastro-esophageal reflux disease without esophagitis; E78.00 Pure hypercholesterolemia, unspecified; E87.6 Hypokalemia; G43.909 Migraine, unspecified, not intractable, without status migrainosus; R25.2 Cramp and spasm; Z98.84 Bariatric surgery status; Z79.899 Other long term (current) drug therapy; Z79.82 Long term (current) use of aspirin; F17.200 Nicotine dependence, unspecified, uncomplicated
CPT/HCPCS: 71010; 71275; 80048; 82550; 82553; 83880; 84484; 85025; 85610; 93005; 93041; 96374; 96375; 99285; J2405; Q9967

== ENCOUNTER → 2016-06-02 | Outpatient (REF) | payer MEDICARE, MEDICAID | LOC: M SFHCPLAZ 10:32 | PROVIDERS: ATTEND Physician Assistant Medical | DX: Z11.59 Encounter for screening for other viral diseases (principal); Z53.8 Procedure and treatment not carried out for other reasons ==

== ENCOUNTER → 2016-08-27 | Outpatient (REF) | payer MEDICARE, MEDICAID ==
[2016-08-27 15:24] LABS: PERCENT SATURATION 14.9 % (13.2-37.4)
[2016-09-03 00:08] LABS: HEPATITIS C QUANTITATION HCV Not Detected IU/mL (.); NICOTINAMIDE 36.3 ng/mL (5.2-72.1); NICOTINIC ACID <5.0 ng/mL (0.0-5.0)
== END ==
LOC: M SFHCPLAZ 09:24
PROVIDERS: ATTEND Physician Assistant Medical
DX: Z11.59 Encounter for screening for other viral diseases (principal); E53.8 Deficiency of other specified B group vitamins; Z98.84 Bariatric surgery status; M81.0 Age-related osteoporosis without current pathological fracture; Z79.82 Long term (current) use of aspirin; Z79.899 Other long term (current) drug therapy; R25.2 Cramp and spasm

== ENCOUNTER → 2016-10-07 | Outpatient (REF) | payer MEDICARE, MEDICAID ==
[~2016-10-07] MED LIST changes: -ACET-654 PO; +ACET1TAB17 PO; -ATOR1TAB18 PO; +ATOR80TA59 PO; +METO25TA4 PO; -METO25TAB PO; -MUCI600T34 PO; +MUCI600T37 PO; -ONDA1TAB15 PO; +ONDA4TAB5 PO
[2016-10-07 12:29] LABS: VITAMIN B12 LEVEL > 2000 PG/ML (247-911)
[2016-10-07 12:31] LABS: ANION GAP 8 MEQ/L (8-16); BLOOD UREA NITROGEN 16 MG/DL (7-18); CALCIUM LEVEL 9.3 MG/DL (8.8-10.2); CARBON DIOXIDE LEVEL 23 MEQ/L (21-32); CHLORIDE LEVEL 114 MEQ/L (98-107); CREATININE FOR GFR 0.62 MG/DL (0.55-1.02); GLOMERULAR FILTRATION RATE > 60.0 (>45); GLUCOSE, FASTING 92 MG/DL (80-110); POTASSIUM SERUM 4.2 MEQ/L (3.5-5.1); SODIUM LEVEL 145 MEQ/L (136-145)
== END ==
LOC: M SFHCPLAZ 09:03
PROVIDERS: ATTEND Physician Assistant Medical
DX: R25.2 Cramp and spasm (principal); E55.9 Vitamin D deficiency, unspecified; E53.8 Deficiency of other specified B group vitamins
CPT/HCPCS: 80048; 82306; 82607; 83735; 96372; G0463; J3420

== ENCOUNTER → 2017-05-14 | Outpatient (CLI) | payer MEDICARE, MEDICAID | LOC: M RAD 11:00 | DX: Z87.81 Personal history of (healed) traumatic fracture (principal) | CPT/HCPCS: 73502 ==

== ENCOUNTER → 2017-10-25 | Outpatient (CLI) | payer MEDICARE, MEDICAID | LOC: M RAD 13:43 | DX: I65.23 Occlusion and stenosis of bilateral carotid arteries (principal) | CPT/HCPCS: 93880 ==

== ENCOUNTER → 2018-01-13 | Outpatient (REF) | payer MEDICARE, MEDICAID ==
[2018-01-13 15:54] LABS: BASO # 0.1 10^3/uL (0.0-0.2); BASO % 0.7 % (0.0-1.0); EOS # 0.3 10^3/uL (0.0-0.50); EOS % 2.5 % (0.0-3.0); HEMATOCRIT 33.8 % (36.0-47.0); HEMOGLOBIN 10.6 g/dl (12.0-15.5); IMMATURE GRANULOCYTE % 0.5 % (0-3.0); LYMPH # 2.4 10^3/uL (1.5-4.5); LYMPH % 18.4 % (24.0-44.0); MEAN CORPUSCULAR HGB CONC 31.4 g/dl (32.0-36.5); MEAN CORPUSCULAR VOLUME 86.2 fl (80.0-96.0); MONO # 0.8 10^3/uL (0.0-0.8); MONO % 6.3 % (0.0-5.0); NEUTROPHILS # 9.3 10^3/uL (1.8-7.7); NEUTROPHILS % 71.6 % (36.0-66.0); PLATELET COUNT, AUTOMATED 635 10^3/uL (150-450); RED BLOOD COUNT 3.92 10^6/uL (4.00-5.40); RED CELL DISTRIBUTION WIDTH 16.6 % (11.5-14.5)
[2018-01-13 16:48] LABS: ALBUMIN 3.2 GM/DL (3.2-5.2); ALBUMIN/GLOBULIN RATIO 0.91 (1.00-1.93); ALKALINE PHOSPHATASE 172 U/L (45-117); ALT/SGPT 19 U/L (12-78); ANION GAP 12 MEQ/L (8-16); AST/SGOT 11 U/L (7-37); BILIRUBIN,TOTAL 0.3 MG/DL (0.2-1.0); BLOOD UREA NITROGEN 19 MG/DL (7-18); CALCIUM LEVEL 9.5 MG/DL (8.8-10.2); CARBON DIOXIDE LEVEL 25 MEQ/L (21-32); CHLORIDE LEVEL 107 MEQ/L (98-107); CREATININE FOR GFR 0.81 MG/DL (0.55-1.30); GLOMERULAR FILTRATION RATE > 60.0 (>45); GLUCOSE, FASTING 120 MG/DL (70-100); POTASSIUM SERUM 3.8 MEQ/L (3.5-5.1); SODIUM LEVEL 144 MEQ/L (136-145); TOTAL PROTEIN 6.7 GM/DL (6.4-8.2)
[2018-01-13 17:09] LABS: TOTAL 25(OH) VITAMIN D 57.3 NG/ML (30.0-100.0)
[2018-01-13 17:10] LABS: PTH INTACT 22.7 PG/ML (18.5-88.0)
== END ==
LOC: M SFHCPLAZ 14:37
DX: E55.9 Vitamin D deficiency, unspecified (principal); E53.8 Deficiency of other specified B group vitamins; K27.9 Peptic ulcer, site unspecified, unspecified as acute or chronic, without hemorrhage or perforation; I10 Essential (primary) hypertension; Z79.899 Other long term (current) drug therapy
CPT/HCPCS: 82607

== ENCOUNTER → 2018-01-14 | Outpatient (REF) | payer MEDICARE, MEDICAID ==
[2018-01-14 15:58] LABS: APPEARANCE, URINE TURBID (CLEAR); BACTERIA, URINE AUTO 2+ (NEGATIVE); BILIRUBIN, URINE AUTO 2+ (NEGATIVE); BLOOD, URINE BLOOD NEGATIVE (NEGATIVE); COLOR, URINE AMBER (YELLOW); GLUCOSE, URINE (UA) AUTO NEGATIVE (NEGATIVE); KETONE, URINE AUTO NEGATIVE (NEGATIVE); LEUKOCYTE ESTERASE, URINE AUTO 3+ (NEGATIVE); NITRITE, URINE AUTO POSITIVE (NEGATIVE); PROTEIN, URINE AUTO 1+ mg/dL (NEGATIVE); RBC, URINE AUTO 0 /HPF (0-3); SPECIFIC GRAVITY URINE AUTO 1.025 (1.002-1.035); SQUAMOUS EPITHELIAL CELL UR AU 3 /HPF (0-6); WBC, URINE AUTO TNTC /HPF (0-3)
[2018-01-14 16:21] LABS: C REACTIVE PROTEIN QUANTITATIV 1.06 MG/DL (0.00-0.30)
[2018-01-14 16:45] LABS: LACTIC ACID SEPSIS PROTOCOL 1.3 MMOL/L (0.4-2.0)
[2018-01-14 17:08] LABS: ERYTHROCYTE SEDIMENTATION RATE 58 mm/hr (0-30)
== END ==
LOC: M SFHCPLAZ 12:52
DX: R50.9 Fever, unspecified (principal); D72.825 Bandemia
CPT/HCPCS: 83605

== ENCOUNTER → 2018-01-27 | Outpatient (REF) | payer MEDICARE, MEDICAID ==
[2018-01-27 15:51] LABS: BASO # 0.1 10^3/uL (0.0-0.2); BASO % 0.7 % (0.0-1.0); EOS # 0.3 10^3/uL (0.0-0.50); EOS % 2.7 % (0.0-3.0); HEMATOCRIT 32.6 % (36.0-47.0); HEMOGLOBIN 10.1 g/dl (12.0-15.5); IMMATURE GRANULOCYTE % 0.2 % (0-3.0); LYMPH % 31.4 % (24.0-44.0); MEAN CORPUSCULAR HEMOGLOBIN 26.2 pg (27.0-33.0); MEAN CORPUSCULAR VOLUME 84.7 fl (80.0-96.0); MONO # 0.9 10^3/uL (0.0-0.8); MONO % 9.9 % (0.0-5.0); NEUTROPHILS # 5.2 10^3/uL (1.8-7.7); NEUTROPHILS % 55.1 % (36.0-66.0); PLATELET COUNT, AUTOMATED 389 10^3/uL (150-450); RED BLOOD COUNT 3.85 10^6/uL (4.00-5.40); RED CELL DISTRIBUTION WIDTH 16.7 % (11.5-14.5); RETIC HEMOGLOBIN EQUIVALENT 29.5 pg (24-36); RETICULOCYTE # 74.3 10^9/L (17-77); RETICULOCYTE % 1.9 % (0.5-1.5); WHITE BLOOD COUNT 9.5 10^3/uL (4.0-10.0)
[2018-01-27 16:09] LABS: IRON (FE) 29 UG/DL (50-170); PERCENT SATURATION 7.3 % (13.2-45.0); TOTAL IRON BINDING CAPACITY 400 UG/DL (250-450)
[2018-01-27 16:25] LABS: ERYTHROCYTE SEDIMENTATION RATE 41 mm/hr (0-30)
== END ==
LOC: M SFHCPLAZ 13:42
DX: D72.825 Bandemia (principal); R50.9 Fever, unspecified
CPT/HCPCS: 83550

== ENCOUNTER → 2018-02-09 | Outpatient (REF) | payer MEDICARE, MEDICAID ==
[2018-02-09 16:28] LABS: VITAMIN B12 LEVEL 461 PG/ML (247-911)
== END ==
LOC: M SFHCPLAZ 14:06
DX: E53.8 Deficiency of other specified B group vitamins (principal)
CPT/HCPCS: 82607

== ENCOUNTER → 2018-02-25 | Outpatient (CLI) | payer MEDICARE, MEDICAID | LOC: M RAD 10:11 | DX: M16.12 Unilateral primary osteoarthritis, left hip (principal); Z87.81 Personal history of (healed) traumatic fracture | CPT/HCPCS: 78315 ==

== ENCOUNTER → 2018-08-03 | Outpatient (REF) | payer MEDICARE, MEDICAID ==
[~2018-08-03] MED LIST changes: -ACET1TAB17 PO; +ACET1TAB55 PO; -AMLO5TAB2 PO; +AMLO5TAB6 PO; +KLOR20TA42 PO; -PANT40TA2 PO; +PANT40TA3 PO; -POTA20TA PO; -SENN1TAB2 PO; +SENN1TAB40 PO; +SENN1TAB41 PO; -SENN8.6T7 PO; -ZOFR20TA PO; +ZOFR4TAB16 PO
== END ==
LOC: M SFHCPLAZ 15:41
PROVIDERS: ATTEND Physician Assistant Medical
DX: E53.8 Deficiency of other specified B group vitamins (principal)

== ENCOUNTER 2018-09-13 14:27 | Observation (INO) | payer MEDICARE, MEDICAID ==
[~2018-09-13] VITALS: Ht 160 cm; Wt 45.7 kg
[2018-09-13] MEDS ORDERED: ATOR40TA75 PO (14:40)
[2018-09-13] MEDS ORDERED: GABA-1171 PO (14:40)
[2018-09-13] MEDS ORDERED: FERR325T3 PO (14:40)
[2018-09-13 15:09] LABS: BASO # 0.1 10^3/uL (0.0-0.2); BASO % 0.5 % (0.0-1.0); EOS # 0.2 10^3/uL (0.0-0.50); EOS % 1.7 % (0.0-3.0); HEMATOCRIT 35.7 % (36.0-47.0); LYMPH # 3.4 10^3/uL (1.5-4.5); LYMPH % 28.7 % (24.0-44.0); MEAN CORPUSCULAR HEMOGLOBIN 30.2 pg (27.0-33.0); MEAN CORPUSCULAR HGB CONC 33.6 g/dl (32.0-36.5); MEAN CORPUSCULAR VOLUME 89.7 fl (80.0-96.0); MONO % 8.7 % (0.0-5.0); NEUTROPHILS % 60.1 % (36.0-66.0); PLATELET COUNT, AUTOMATED 298 10^3/uL (150-450); RED BLOOD COUNT 3.98 10^6/uL (4.00-5.40); WHITE BLOOD COUNT 11.7 10^3/uL (4.0-10.0)
--- NOTE | 2018-09-13 15:27 | REP ---
Clinical: Weakness and altered mental status. Comparison: 03/10/2016 . Findings: Atrophy with periventricular leukomalacia and microvascular ischemic changes are appreciated. The ventricles and sulci are symmetric. Castano-white differentiation is maintained. There is no evidence for acute intracranial hemorrhage, mass/mass effect, pathology or infarction. No extra-axial fluid collection. Calvarium is intact. Paranasal sinuses and mastoid air cells are clear. Impression: Atrophy and microvascular ischemic changes. No acute intracranial hemorrhage, infarction, or mass/mass effect. Electronically Signed by Tani Carias MD 09/13/2018 03:18 P
[2018-09-13 15:35] LABS: ALT/SGPT 17 U/L (12-78); BILIRUBIN,DIRECT 0.1 MG/DL (0.0-0.2); BILIRUBIN,TOTAL 0.5 MG/DL (0.2-1.0); BLOOD UREA NITROGEN 22 MG/DL (7-18); CALCIUM LEVEL 9.2 MG/DL (8.8-10.2); CARBON DIOXIDE LEVEL 24 MEQ/L (21-32); CHLORIDE LEVEL 109 MEQ/L (98-107); CK-MB VALUE MASS < 1.0 NG/ML (<3.6); CPK CREATINE PHOSPHOKINASE 30 U/L (26-192); CREATININE FOR GFR 0.91 MG/DL (0.55-1.30); GLOMERULAR FILTRATION RATE > 60.0 (>39); GLUCOSE, FASTING 105 MG/DL (70-100); MB/CK RELATIVE INDEX 3.33 (< OR =4); POTASSIUM SERUM 4.4 MEQ/L (3.5-5.1); SODIUM LEVEL 141 MEQ/L (136-145); THYROID STIMULATING HORMONE 0.529 uIU/ML (0.358-3.740); TOTAL PROTEIN 6.6 GM/DL (6.4-8.2); TROPONIN I 0.02 NG/ML (< 0.10)
--- NOTE | 2018-09-13 16:13 | REP ---
Clinical: Trauma. Technique: AP view of the pelvis. Findings: Evidence of prior left hip fixation. No acute fracture or dislocation. Impression: No acute fracture dislocation. Electronically Signed by Tani Carias MD 09/13/2018 04:05 P
--- NOTE | 2018-09-13 16:14 | REP ---
Clinical: Trauma . Comparison: 04/02/2016 . Technique: PA and lateral. Findings: The mediastinum and cardiac silhouette are normal. The lung godoy are clear and without acute consolidation, effusion, or pneumothorax. The skeletal structures are intact and normal. Impression: 1. No acute cardiopulmonary process. Electronically Signed by Tani Carias MD 09/13/2018 04:06 P
--- NOTE | 2018-09-13 16:52 | ECGEPIP ---
[facility] - ED Test Date: 2018-09-13 Pat Name: JOE HILL Department: Room: - Gender: Female Information Broker: CT : 1950 Requested By: JASON Pathak Order Number: [id number] Reading MD: Carmelina Maldonado Measurements Intervals [place] Rate: 77 P: 52 LA: 115 QRS: 44 QRSD: 82 T: 117 QT: 383 QTc: 433 Interpretive Statements SINUS RHYTHM WITH SHORT LA INTERVAL LEFT VENTRICULAR HYPERTROPHY AND ST-T CHANGE VS ISCHEMIA MORE PRONOUNCED COMPARED 04/02/16 Electronically Signed on 09-13-2018 15:44:53 EDT by Carmelina Maldonado
--- NOTE | 2018-09-13 17:48 | REP ---
Clinical: Altered mental status. Possible acute cerebral infarction. Technique: Standard noncontrast MRI of the brain sequencing. Comparison: 03/10/2016. Findings: Generalized age-related atrophy along with significant periventricular leukomalacia and microvascular ischemic changes are again identified. No acute intracranial hemorrhage or abnormal signal intensity foci are identified to suggest acute pathology. No mass or mass effect. No extra-axial fluid collection. Diffusion weighted sequence is without evidence for acute infarction. Ventricles are symmetric. Posterior fossa, midbrain and midline structures are relatively age-appropriate. Sinuses and mastoid air cells are clear. Impression: Age-related chronic atrophy with microvascular ischemic changes and periventricular leukomalacia. No evidence for acute intracranial hemorrhage, mass/mass effect, or infarction. Electronically Signed by Tani Carias MD 09/13/2018 05:40 P
--- NOTE | 2018-09-13 17:52 | REP ---
Clinical: Possible acute cerebral infarction. Technique: Axial noncontrast 3-D [id number] source images with multiplanar MIP reformations. Comparison: 03/10/2016 Findings:There are suggestions for atherosclerotic disease involving the internal carotid arteries without significant stenosis. There is symmetric appearance to the intracranial vasculature and [place], which appears relatively normal. The visualized portions of the vertebrobasilar system appear intact; dominant left vertebral artery noted. There is no evidence for arteriovenous malformation, aneurysm, or significant loss of vascular signal to suggest areas of decreased vascular supply. Impression: No evidence for aneurysm, AVM, or significant further pathology. Intracranial vasculature appears relatively symmetric and within normal limits. Electronically Signed by Tani Carias MD 09/13/2018 05:43 P
[2018-09-13] MEDS ORDERED: ACETAMINOPHEN TAB 650MG DOSE (2X325MG) PO PRN (18:00)
--- NOTE | 2018-09-13 18:20 | HPEPDOC ---
General Date of Admission 09/13/2018 Date of Service: Sep 13, 2018 Attending Physician: NICOLE PARR MD Chief Complaint The patient is a 68-year-old female admitted with a reason for visit of Can Not Ambulate. History of Present Illness Patient is a 68-year-old female, presenting to the emergency room status post fall at home with severe weakness. Patient has a past medical history significant for hypertension, hyperlipidemia, gastroesophageal reflux disease. Usually patient uses a walker but states she had just been watching TV and got up and fell over. She denies tripping, denies any lightheadedness, weakness, nausea, palpitations, vomiting prior to or after fall. She did states she has been falling quite frequently at home, and usually is picked up by boyfriend whenever she falls down. Initial assessment in the ED with CT brain was negative for acute intracranial process. Pelvic x-ray completed due to prior left hip fracture with concern for new trauma was negative for acute process. Chest x-ray was also negative for acute pulmonary process. Hematology panel showed white blood count elevated at 11.7. Due to suspected focal weakness. MRI of brain was also ordered to further further evaluate for possible infection. On evaluation, patient denies any chest pain, shortness of breath, chills, or malaise. She did complain of right hand numbness which she states has been ongoing for 6 months.Urinalysis was abnormal with high suspicion for urinary tract infection with elevated leukoesterase, white blood count, and bacteria Home Medications Scheduled Aspirin (Aspirin) 325 Mg Tablet, 325 MG PO DAILY Atorvastatin Calcium (Atorvastatin Calcium) 20 Mg Tablet, 80 MG PO DAILY Carvedilol (Carvedilol) 12.5 Mg Tablet, 12.5 MG PO BID Ceftriaxone Sodium (Ceftriaxone) 1 Gm Vial, 1 GRAM IV DAILY Enoxaparin Sodium (Lovenox) 40 Mg/0.4 Ml Syringe, 40 MG SC DAILY Allergies Coded Allergies: No Known Allergies (Verified , 11/08/03) Past Medical History Medical History Hypertension Hyperlipidemia GERD Surgical History Pyloroplasty. Gastric bypass surgery Colon surgery ORIF left hip. Colonoscopy Valvotomy Family History Significant Family History: No pertinent family hx Social History * Smoker: current smoker, less than 1 pack/day Alcohol: Denies Drugs: denies A-FIB/CHADSVASC A-FIB History Current/History of A-Fib/PAF?: No Current PO Anticoag Therapy: No Review of Systems Other systems A 10 point pertinent review of systems was completed, negative except as stated in the history of presenting illness. Physical Examination Other physical findings GENERAL: Cachectic NAD SKIN : Warm, dry intact HEENT: Atraumatic, normocephalic, PERRL, moist mucous membrane CARDIOVASCULAR: Regular rate and rhythm, S1S2, no JVD, no edema, distal pulses + and palpable RESP: CTAB, no accessory muscle use noted ABDOMEN: BS+ non distended non tender MS: no joint deformities NEURO: Alert and oriented x 3, CN2-12 grossly intact PSYCH: no anxiety or agitation, appropriate mood and affect. Vital Signs Vital Signs Date Time Temp Pulse Resp B/P (MAP) Pulse Ox O2 Delivery O2 Flow Rate FiO2 09/13/18 16:30 66 185/74 (111) 98 09/13/18 14:42 98.2 18 Room Air Laboratory Data Labs 24H Laboratory Tests 2 09/13/18 14:56: Immature Granulocyte % (Auto) 0.3, White Blood Count 11.7H, Red Blood Count 3.98L, Hemoglobin 12.0, Hematocrit 35.7L, Mean Corpuscular Volume 89.7, Mean Corpuscular Hemoglobin 30.2, Mean Corpuscular Hemoglobin Concent 33.6, Red Cell Distribution Width 15.7H, Platelet Count 298, Neutrophils (%) (Auto) 60.1, Lymphocytes (%) (Auto) 28.7, Monocytes (%) (Auto) 8.7H, Eosinophils (%) (Auto) 1.7, Basophils (%) (Auto) 0.5, Neutrophils # (Auto) 7.0, Lymphocytes # (Auto) 3.4, Monocytes # (Auto) 1.0H, Eosinophils # (Auto) 0.2, Basophils # (Auto) 0.1, Nucleated Red Blood Cells % (auto) 0.0, Anion Gap 8, Glomerular Filtration Rate > 60.0, Calcium Level 9.2, Aspartate Amino Transf (AST/SGOT) 9, Alanine Aminotransferase (ALT/SGPT) 17, Alkaline Phosphatase 117, Total Bilirubin 0.5, Direct Bilirubin 0.1, Total Creatine Kinase 30, Creatine Kinase MB < 1.0, Creatine Kinase MB Relative Index 3.33, Troponin I 0.02, Total Protein 6.6, Albumin 3.0L, Albumin/Globulin Ratio 0.83L, Thyroid Stimulating Hormone (TSH) 0.529 09/13/18 16:34: Urine Color YELLOW, Urine Appearance CLOUDYH, Urine pH 5.0, Urine Specific [place] 1.017, Urine Protein 1+H, Urine Glucose (UA) NEGATIVE, Urine Ketones NEGATIVE, Urine Blood 1+H, Urine Nitrite NEGATIVE, Urine Bilirubin 1+H, Urine Urobilinogen 0.2, Urine Leukocyte Esterase 3+H, Urine WBC (Auto) 167H, Urine RBC (Auto) 5H, Urine Hyaline Casts (Auto) 0, Urine Bacteria (Auto) 2+H, Urine Squamous Epithelial Cells 0, Urine Sperm (Auto) CBC/BMP Laboratory Tests 09/13/18 14:56 Red Blood Count 3.98 L, Mean Corpuscular Volume 89.7, Mean Corpuscular Hemoglobin 30.2, Mean Corpuscular Hemoglobin Concent 33.6, Red Cell Distribution Width 15.7 H, Neutrophils (%) (Auto) 60.1, Lymphocytes (%) (Auto) 28.7, Monocytes (%) (Auto) 8.7 H, Eosinophils (%) (Auto) 1.7, Basophils (%) (Auto) 0.5, Neutrophils # (Auto) 7.0, Lymphocytes # (Auto) 3.4, Monocytes # (Auto) 1.0 H, Eosinophils # (Auto) 0.2, Basophils # (Auto) 0.1 Microbiology Microbiology 09/13/18 Urine Culture, Received Pending Assessment/Plan Complicated urinary tract infection -Start antibiotic therapy with ceftriaxone -Follow urine culture findings and adjust antibiotic management as indicated Presyncope -CT brain has ruled out acute brain bleed -MRI brain completed. Follow findings -2-D echocardiogram to evaluate ejection fraction, rule out regional wall motion abnormalities -Telemetry for continuous monitoring for at least 72 hours to exclude any malignant arrhythmias -Aspirin, atorvastatin, blood pressure control Hypertension -Continue Coreg with target systolic blood pressure less than 140 mmHg Hyperlipidemia -Continue statin therapy DVT prophylaxis -Lovenox subcutaneous daily Plan / VTE VTE Prophylaxis Ordered?: Yes YMRA MURO Sep 13, 2018 18:20 NICOLE PARR MD Sep 25, 2018 22:45
[2018-09-13] MEDS ORDERED: CARV6.25 PO (18:35)
[2018-09-13] MEDS ORDERED: FISH1000 PO (18:35)
[2018-09-13] MEDS ORDERED: MELA5TAB31 PO (18:35)
[2018-09-13] MEDS ORDERED: cefTRIAXone SOD 1 GM in D5W MINI-BAG PLUS 50 ML IV SCH (20:00)
[2018-09-13 20:08] VITALS: BP 139/62
--- NOTE | 2018-09-13 20:16 | REPVR ---
EXAM: US Duplex Bilateral Extracranial Arteries EXAM DATE/TIME: 09/13/2018 7:12 PM CLINICAL HISTORY: 68 years old, female; Syncope and collapse TECHNIQUE: Imaging protocol: Real-time Duplex ultrasound scan of the Bilateral carotid and vertebral arteries combining gutierrez scale, color Doppler and spectral waveform analysis. COMPARISON: No relevant prior studies available. FINDINGS: Right common carotid artery: The right common carotid artery demonstrates velocity of 114 cm/s proximally, 106 cm/s mid and 130 cm/s distal. Right internal carotid artery: Heavy plaque is noted in the right carotid arteries throughout. The right proximal internal carotid artery demonstrates normal wave forms with velocity of 256 cm/s, mid is 135 cm/s and distal is 98 cm/s. Right ICA/CCA ratio: The right ICA/CCA ratio is 1.85. Right external carotid artery: The right external carotid artery demonstrates normal wave forms with velocity of 350 cm/s. Right vertebral artery: The right vertebral artery is not demonstrated. Left common carotid artery: The left common carotid artery proximally demonstrates normal waveforms with velocity 79 cm/s, mid is 103 cm/s and distal is 101 cm/s. Left internal carotid artery: The left carotid arteries demonstrate heavy plaque throughout. The left internal carotid artery proximally demonstrates velocity of 248 cm/s, mid is 139 cm/s and distal is 132 cm/s. Left ICA/CCA ratio: The left ICA/CCA ratio is 2.45. Left external carotid artery: Left external carotid artery demonstrates velocity of 660 cm/s. Left vertebral artery: The left vertebral artery demonstrates antegrade flow with velocity of 50 cm/s. IMPRESSION: 1. Heavy plaque in the carotid arteries bilaterally. 2. Bilateral stenoses of the internal carotid arteries estimated at 50-69%. 3. Stenoses of the external carotid arteries bilaterally estimated at 50-69% on the right and 70-94% on the left. COMMENT: Carotid Stenosis Reference using SRU criteria: Mild: less than 50% stenosis. ICA PSV is less than 125 cm/second and plaque or intimal thickening is visible. Moderate: 50-69% stenosis. ICA PSV is 125 to 230 cm/second and plaque is visible. Severe: 70-94% stenosis. ICA PSV is more than 230 cm/second and visible plaque and lumen narrowing are seen. Near occlusion: 95-99% stenosis. ICA PSV is variable and significant plaque and luminal narrowing are seen. Occluded: 100% stenosis. No flow identified. Electronically signed by: Chadwick Gallego On 09/13/2018 20:15:40 PM
[2018-09-13] MEDS: CARVedilol 12.5 MG TAB PO SCH (21:02)
[2018-09-14 02:00] VITALS: BP 133/62
[2018-09-14 06:00] VITALS: BP 136/64
[2018-09-14 06:35] LABS: HEMATOCRIT 35.7 % (36.0-47.0); HEMOGLOBIN 11.6 g/dl (12.0-15.5); MEAN CORPUSCULAR HEMOGLOBIN 28.8 pg (27.0-33.0); MEAN CORPUSCULAR HGB CONC 32.5 g/dl (32.0-36.5); MEAN CORPUSCULAR VOLUME 88.6 fl (80.0-96.0); PLATELET COUNT, AUTOMATED 287 10^3/uL (150-450); RED BLOOD COUNT 4.03 10^6/uL (4.00-5.40); WHITE BLOOD COUNT 9.5 10^3/uL (4.0-10.0)
[2018-09-14 06:46] LABS: BLOOD UREA NITROGEN 19 MG/DL (7-18); CARBON DIOXIDE LEVEL 25 MEQ/L (21-32); CHLORIDE LEVEL 108 MEQ/L (98-107); CREATININE FOR GFR 0.87 MG/DL (0.55-1.30); GLOMERULAR FILTRATION RATE > 60.0 (>39); GLUCOSE, FASTING 98 MG/DL (70-100); MAGNESIUM LEVEL 2.1 MG/DL (1.8-2.4); SODIUM LEVEL 139 MEQ/L (136-145)
[2018-09-14] MEDS ORDERED: ASPIRIN 325 MG TAB PO SCH (09:00)
[2018-09-14] MEDS ORDERED: ATORVASTATIN 20 MG TAB PO SCH (09:00)
[2018-09-14] MEDS ORDERED: PREVNAR 13 VACCINE SYRINGE (CPT CODE:90670) IM ONE (09:00)
[2018-09-14] MEDS ORDERED: ENOXAPARIN 40 MG/0.4 ML SYRINGE (J1650) SC SCH (09:00)
[2018-09-14 09:48] VITALS: BP 124/63
[2018-09-14] MEDS: CARVedilol 12.5 MG TAB PO SCH (09:48)
--- NOTE | 2018-09-14 11:28 | IPNPDOC ---
Subjective Date Seen The patient was seen on 09/14/18. Subjective Chief Complaint/HPI FALL Events since last encounter S/p near syncopal event at home. Workup completed in ED: CT scan, MRI/MRA: see reports for results. Carotid US completed with signs of stenosis. Echo ordered and pending completion. PT/OT eval pending. Today patient denies c/o. Skin: Denies: Rash, Lesions, Breakdown Pulmonary: Denies: Dyspnea, Cough Cardiovascular: Denies: Chest Pain, Palpitations, Orthopnea, Paroxysmal Noc. Dyspnea, Lt Headedness Gastrointestinal: Denies: Nausea, Vomiting, Abdominal Pain, Diarrhea, Constipation Genitourinary: Denies: Dysuria, Frequency, Incontinence, Retention Neurological: Reports: Weakness; Denies: Numbness Objective Physical Examination General Exam: Positive: Alert, No Acute Distress Neck Exam: Positive: Supple, Other (bruit Left carotid); Negative: JVD, thyromegaly Chest Exam: Positive: Diminished Heart Exam: Positive: Rate Normal, Regular Rhythm, Normal S1, Normal S2; Negative: Murmurs, Rubs Telemetry: Positive: No significant arrhythmia Abdomen Exam: Positive: Normal bowel sounds, Soft; Negative: Tenderness, Hepatospenomegaly Extremity Exam: Negative: Edema Skin Exam: Positive: Nl turgor and temperature; Negative: Rash, Breakdown Psych Exam: Positive: Mental status NL, Oriented x 3 Assessment /Plan Problems (1) Carotid stenosis, bilateral Status: Acute Problem Text: IMPRESSION: 1. Heavy plaque in the carotid arteries bilaterally. 2. Bilateral stenoses of the internal carotid arteries estimated at 50-69%. 3. Stenoses of the external carotid arteries bilaterally estimated at 50-69% on the right and 70-94% on the left. (2) Near syncope Status: Acute Problem Text: Echo pending. + Carotid artery stenosis. Will need vascular consult. (3) Fall Status: Acute (4) HTN (hypertension) Status: Chronic Problem Text: On carvedilol 6.25 mg po bidat home. Increased to 12.5 mg bid due to elevated BP during recent admission. Echo pending. (5) Gastroesophageal reflux disease Status: Chronic Plan/VTE VTE Prophylaxis Ordered?: Yes VS, I&O, 24H, Fishbone Vital Signs/I&O Vital Signs Date Time Temp Pulse Resp B/P (MAP) Pulse Ox O2 Delivery O2 Flow Rate FiO2 09/14/18 09:48 73 124/63 09/14/18 06:00 98.3 18 98 09/13/18 20:01 Room Air I&O- Last 24 Hours up to 6 AM 09/14/18 06:00 Intake Total 230 ml Output Total 860 ml Balance -630 ml Laboratory Data 24H LABS Laboratory Tests 2 09/13/18 14:56: Immature Granulocyte % (Auto) 0.3, White Blood Count 11.7H, Red Blood Count 3.98L, Hemoglobin 12.0, Hematocrit 35.7L, Mean Corpuscular Volume 89.7, Mean Corpuscular Hemoglobin 30.2, Mean Corpuscular Hemoglobin Concent 33.6, Red Cell Distribution Width 15.7H, Platelet Count 298, Neutrophils (%) (Auto) 60.1, Lymphocytes (%) (Auto) 28.7, Monocytes (%) (Auto) 8.7H, Eosinophils (%) (Auto) 1.7, Basophils (%) (Auto) 0.5, Neutrophils # (Auto) 7.0, Lymphocytes # (Auto) 3.4, Monocytes # (Auto) 1.0H, Eosinophils # (Auto) 0.2, Basophils # (Auto) 0.1, Nucleated Red Blood Cells % (auto) 0.0, Anion Gap 8, Glomerular Filtration Rate > 60.0, Calcium Level 9.2, Aspartate Amino Transf (AST/SGOT) 9, Alanine Aminotransferase (ALT/SGPT) 17, Alkaline Phosphatase 117, Total Bilirubin 0.5, Direct Bilirubin 0.1, Total Creatine Kinase 30, Creatine Kinase MB < 1.0, Creatine Kinase MB Relative Index 3.33, Troponin I 0.02, Total Protein 6.6, Albumin 3.0L, Albumin/Globulin Ratio 0.83L, Thyroid Stimulating Hormone (TSH) 0.529 09/13/18 16:34: Urine Color YELLOW, Urine Appearance CLOUDYH, Urine pH 5.0, Urine Specific [place] 1.017, Urine Protein 1+H, Urine Glucose (UA) NEGATIVE, Urine Ketones NEGATIVE, Urine Blood 1+H, Urine Nitrite NEGATIVE, Urine Bilirubin 1+H, Urine Urobilinogen 0.2, Urine Leukocyte Esterase 3+H, Urine WBC (Auto) 167H, Urine RBC (Auto) 5H, Urine Hyaline Casts (Auto) 0, Urine Bacteria (Auto) 2+H, Urine Squamous Epithelial Cells 0, Urine Sperm (Auto) 09/14/18 06:00: Nucleated Red Blood Cells % (auto) 0.0, Anion Gap 6L, Glomerular Filtration Rate > 60.0, Calcium Level 9.0, Blood Urea Nitrogen 19H, Creatinine 0.87, Sodium Level 139, Potassium Level 4.0, Chloride Level 108H, Carbon Dioxide Level 25, Magnesium Level 2.1 CBC/BMP Laboratory Tests 09/13/18 14:56 Red Blood Count 3.98 L, Mean Corpuscular Volume 89.7, Mean Corpuscular Hemoglobin 30.2, Mean Corpuscular Hemoglobin Concent 33.6, Red Cell Distribution Width 15.7 H, Neutrophils (%) (Auto) 60.1, Lymphocytes (%) (Auto) 28.7, Monocytes (%) (Auto) 8.7 H, Eosinophils (%) (Auto) 1.7, Basophils (%) (Auto) 0.5, Neutrophils # (Auto) 7.0, Lymphocytes # (Auto) 3.4, Monocytes # (Auto) 1.0 H, Eosinophils # (Auto) 0.2, Basophils # (Auto) 0.1 09/14/18 06:00 Red Blood Count 4.03, Mean Corpuscular Volume 88.6, Mean Corpuscular Hemoglobin 28.8, Mean Corpuscular Hemoglobin Concent 32.5, Red Cell Distribution Width 15.6 H, Calcium Level 9.0 Microbiology Microbiology 09/13/18 Urine Culture, Received Pending Lety Goldstein [facility] Sep 14, 2018 11:28
[2018-09-14 11:50] VITALS: BP 127/66
[2018-09-14] MEDS ORDERED: ATOR1TAB21 PO (12:00)
[2018-09-14] MEDS ORDERED: CARV12.5 PO (12:00)
[2018-09-14] MEDS ORDERED: LOVE1INJ SC (12:00)
[2018-09-14] MEDS ORDERED: ASPI-1 PO (12:00)
[2018-09-14] MEDS ORDERED: CEFT1INJ5 IV (12:00)
--- NOTE | 2018-09-14 13:42 | DSES ---
DATE OF ADMISSION: 09/13/2018 DATE OF DISCHARGE: 09/14/2018 ATTENDING PHYSICIAN: Dr. Simeon Deutsch PRIMARY CARE PROVIDER (PCP): LEWIS Villalobos, and Bart Branch MD. HISTORY OF PRESENT ILLNESS: 68-year-old female who presented to the emergency room at [facility] status post fall at home. Patient states normally she uses a walker. She had been watching TV, stood, and simply fell over. She had difficulty remembering the exact mechanism of her fall. She did not trip over anything. She does have a past history of recurrent falls over the last 6 months secondary to generalized weakness. Emergency department (ED) workup includes head CT, which showed atrophy and microvascular ischemic changes. X-ray of the pelvis ruled out fracture or dislocation. Chest x-ray with no acute disease. Brain MRI and MRA noted to have age-related chronic atrophy with microvascular ischemic changes and periventricular leukomalacia. No evidence of aneurysm, arteriovenous malformation (AVM), or further pathology on the MRA. Carotid ultrasound was completed after MRA of the brain revealed suggestions for atherosclerotic disease involving the carotid arteries. Ultrasound results proved positive for carotid artery stenosis, heavy plaque in bilateral arteries. Worst part of the stenosis is in the left. Patient initially was hypertensive on admission. Her carvedilol was increased from 6.25 mg to 12.5 mg by mouth twice a day with improvement in her pressures. Most recent blood pressure 124/63 with a heart rate of 73. Patient has remained afebrile. Heart rate has remained stable in the 60s. Telemetry has remained uneventful. Patient's oxygen saturation has remained in the upper 90s with no supplementation. She is on room air. Most recent labs show a hemoglobin and hematocrit of 11 and 35, platelets of 287. Basic metabolic panel (BMP) is unremarkable with normal electrolytes and a creatinine of 0.87. Patient was found to have an abnormal urinalysis (UA) with 1+ protein, 1+ blood, negative nitrites, 1+ bilirubin, and 3+ leukocytes. Urine culture is pending. She was placed on ceftriaxone on 1 gram IV every 24 hours until culture is obtained. PHYSICAL EXAMINATION: Cardiovascular: Heart rate and rhythm are regular. Pulmonary: Lungs are clear. Abdomen: Soft and nontender. Neck: Shows no palpable lymphadenopathy. She does have faint bilateral carotid bruits. Bilateral lower extremities: Without any edema. Neurological: Patient is alert and oriented times three. Psychiatric: Affect is appropriate. Conversation is congruent. She is mildly anxious. ASSESSMENT: 1. Near syncope with fall. 2. Carotid artery stenosis. 3. Hypertension. 4. Gastroesophageal reflux disease (GERD). 5. Abnormal urinalysis. PLAN: Patient will be discharged via transfer to [facility] under the care of Dr. Escalante for vascular intervention of carotid artery stenosis. Risks and benefits of transfer were reviewed with patient, and she is agreeable to transfer. Case was reviewed with attending, Dr. Simeon Deutsch, and he is agreeable to current plan of care. Edited: [facility] 09/15/2018 [id number]
[2018-09-14 14:00] VITALS: BP 146/67
--- NOTE | 2018-09-14 16:10 | ECHO ---
DATE OF PROCEDURE: 09/14/2018 AGE: 68 GENDER: Female HEIGHT: 63 inches WEIGHT: 119 pounds BODY SURFACE AREA: 1.55 m2 PATIENT LOCATION: Inpatient, [address] [place] [address], room 4224 REFERRING PHYSICIAN: DILLON James INDICATION: Syncope. 2D MEASUREMENTS RV: 3.1 cm LV: 3.8 cm Septum: 1.0 cm Posterior wall: 1.0 cm Aortic root: 2.8 cm LA: 3.4 cm LVEF: 70% DOPPLER MEASUREMENTS: AV: 1.39 m/s LVOT: 0.9 m/s LVOT diameter: 1.8 cm MV-E: 60, A: 88, EA ratio: 0.7 Early mitral deceleration time: 275 ms E prime: 5.5, A prime: 8, E/E prime ratio: 11 PCWP: 15 mmHg PV: 0.8 m/s Pulmonary artery acceleration time: 116 ms RVSP: 41 mmHg IVC: 1.7 cm COMMENTS Normal sinus rhythm at 64 bpm. M-mode and two-dimensional echocardiography was performed with pulsed, continuous wave, color flow and tissue Doppler studies. Normal left ventricular size, wall thickness and hyperkinetic wall motion. Normal left atrial size with some Doppler evidence of an impairment of LV diastolic function and estimated mean left atrial pressure upper limits of normal (likely normal for her age). Normal right heart chamber sizes and motion with Doppler evidence of moderate pulmonary hypertension. Normal IVC size and collapse against an elevated central venous pressure. Mild aortic valvular sclerosis without functional abnormality. Mild degenerative changes of the mitral valvular apparatus with mild insufficiency. Normal appearing tricuspid valve with mild insufficiency. No apparent intracardiac mass or pericardial effusion. Normal aortic root size. Unable to clearly identify any structural or functional abnormality that would cause syncope or collapse.
== END 2018-09-14 16:29 | disposition other institution (70) ==
LOC: M ED 14:27 → EDBD 14:27 → M ED INP 17:47 → INTOOBSV 17:47 → M MSPAV 20:08
PROVIDERS: ADMIT Hospitalist; ATTEND Family Medicine
DX: R55 Syncope and collapse (principal); R29.6 Repeated falls; I65.23 Occlusion and stenosis of bilateral carotid arteries; I10 Essential (primary) hypertension; K21.9 Gastro-esophageal reflux disease without esophagitis; R82.90 Unspecified abnormal findings in urine; R53.1 Weakness; E78.49 Other hyperlipidemia; Z98.84 Bariatric surgery status; Z79.82 Long term (current) use of aspirin; Z79.899 Other long term (current) drug therapy
CPT/HCPCS: 36415; 51701; 70450; 70544; 70551; 71046; 72190; 80048; 80076; 81001; 82550; 82553; 83735; 84443; 84484; 85025; 85027; 87088; 87186; 90670; 93005; 93041; 93306; 93880; 94760; 96365; 96372; 97161; 97165; 99285; G0009; G0378; J0696; J1650

== ENCOUNTER → 2018-11-07 | Outpatient (CLI) | payer MEDICARE, MEDICAID ==
[~2018-11-07] MED LIST changes: +ASPI-1 PO; +ATOR1TAB21 PO; +ATOR40TA75 PO; +CARV12.5 PO; +CEFT1INJ5 IV; +FERR325T3 PO; +GABA-1171 PO; +GASTROGRAFIN SOLUTION 30ML (Q9963) As Ordered ONE; +ISOVUE-370 76% 100ML VIAL (Q9967) As Ordered ONE; +LOVE1INJ SC; +MELA5TAB31 PO
--- NOTE | 2018-11-07 17:05 | REP ---
CT of the abdomen pelvis without IV contrast, followed by scanning with IV contrast. Bowel contrast is utilized on both phases of the study. Comparison is 12/01/2015. On the comparison study there was an 8 mm calculus in the proximal right ureter and right hydronephrosis. On the study today there is a calculus in the proximal right ureter at approximately the same location measuring 6 mm in diameter. The right hydronephrosis is no longer identified. However, there is marked right renal cortical atrophy as an interval change. On the comparison study there was an anastomotic bowel surgical suture line in the pelvis. There were findings compatible with intussusception associated with the bowel involved in the anastomosis. On the current study the anastomotic suture is again identified, however, the intussusception is no longer present . The visualized lower lung [place] are unremarkable except for bronchiectasis. The hepatic parenchyma is homogeneous. There are surgical clips in the gallbladder fossa. This is unchanged. The pancreas and spleen are unremarkable. There are surgical clips suggesting area. The adrenals are unremarkable. There is marked right renal cortical atrophy as described above. There is a calculus in the proximal right ureter as described above. There is no hydronephrosis. The left kidney is unremarkable and unchanged. Abdominal aorta is unremarkable. There is no bowel distension or obstruction. There is no periaortic adenopathy or mass. The mesentery is unremarkable. Pelvis: The bladder is unremarkable. The previous intussusception is no longer identified. The uterus demonstrates multiple calcifications compatible with degenerating fibroids. This is unchanged. The adnexa are unremarkable. The previous intussusception is no longer identified. The bowel anastomotic surgical suture ring is unchanged. There is no adenopathy or ascites. There is advanced degenerative disc disease at L4-5. This is unchanged. There has been interval internal fixation of the left hip. Impression: There is a calculus in the proximal right ureter as described. There is marked right renal cortical atrophy as described. There is no bowel distension or obstruction. There is evidence for bariatric surgery and evidence for bowel anastomosis in the pelvis, unchanged. The previously suspected intussusception is no longer identified. There are uterine calcifications compatible with degenerating fibroids, unchanged. There is no adenopathy, mass or ascites. There is advanced degenerative disc disease at L4-5, unchanged. There has been interval internal fixation of the left hip. Electronically Signed by Andi Santo MD 11/07/2018 04:56 P
== END ==
LOC: M RAD 13:15 → MERGE 15:30
PROVIDERS: ATTEND Physician Assistant Medical
DX: N20.1 Calculus of ureter (principal); N26.1 Atrophy of kidney (terminal); M51.36 Other intervertebral disc degeneration, lumbar region; R63.4 Abnormal weight loss
CPT/HCPCS: 74178; Q9963; Q9967

== ENCOUNTER 2018-11-23 12:54 | Emergency (ER) | payer MEDICARE, MEDICAID ==
[~2018-11-23] VITALS: Ht 162.6 cm; Wt 45.5 kg
[~2018-11-23 12:54] MED LIST changes: -GASTROGRAFIN SOLUTION 30ML (Q9963) As Ordered ONE; -ISOVUE-370 76% 100ML VIAL (Q9967) As Ordered ONE
[2018-11-23] MEDS ORDERED: GABA-1171 (13:06)
--- NOTE | 2018-11-23 15:23 | REP ---
Clinical: Bilateral knee pain. Technique: AP, lateral and bilateral oblique views of the right and left knee. Findings: Symmetric age-related osteopenia is appreciated. Right knee demonstrates increase sclerosis and minimal joint space narrowing at the medial tibiofemoral compartment. No osteophytosis. No effusion. No acute fracture or dislocation. Left knee demonstrates mild increased sclerosis to the tibial plateau with subtle cortical irregularity and spurring along the lateral margin. No effusion. No acute fracture or dislocation. Impression: Age-related osteopenia and mild degenerative changes. Electronically Signed by Tani Carias MD 11/23/2018 03:15 P
[2018-11-23 15:56] VITALS: BP 136/63
== END 2018-11-23 15:54 | disposition home or self-care (01) ==
LOC: M ED 12:54
DX: M17.0 Bilateral primary osteoarthritis of knee (principal); I10 Essential (primary) hypertension; E78.5 Hyperlipidemia, unspecified; G43.909 Migraine, unspecified, not intractable, without status migrainosus; I25.2 Old myocardial infarction; M81.0 Age-related osteoporosis without current pathological fracture; Z79.899 Other long term (current) drug therapy; Z79.82 Long term (current) use of aspirin

== ENCOUNTER → 2018-12-09 | Outpatient (REF) | payer MEDICARE, MEDICAID ==
[~2018-12-09] MED LIST changes: +GABA-1171
[2018-12-09 14:00] LABS: FOLATE > 24.0 NG/ML; RHEUMATOID FACTOR QUANT < 10.0 IU/ML (<15.0); THYROID STIMULATING HORMONE 0.463 uIU/ML (0.358-3.740); VITAMIN B12 LEVEL 1016 PG/ML
[2018-12-09 15:19] LABS: HEMOGLOBIN A1c 5.2 %
[2018-12-15 00:07] LABS: ANCA-ATYPICAL <1:20 titer (Neg:<1:20); ANGIOTENSIN 1 CONVERTING ENZYM 28 U/L (14-82); ANTI DOUBLE STRAND-DNA AB <1 IU/mL (0-9); ANTI DS-DNA AB <1:10 titer (.); ANTI-HISTONE ANTIBODIES 0.4 Units (0.0-0.9); ANTINUCLEAR ANTIBODIES DIRECT Positive (Negative); CYTOPLASMIC NEUTROP AB ANCA-C <1:20 titer (Neg:<1:20); PERINUCLEAR AB ANCA-P <1:20 titer (Neg:<1:20); RNP ANTIBODIES <0.2 AI (0.0-0.9); SJOGREN'S ANTI SS-A <0.2 AI (0.0-0.9); SJOGREN'S ANTI SS-B >8.0 AI (0.0-0.9); SMITH ANTIBODIES <0.2 AI (0.0-0.9); VITAMIN B1 LEVEL WHOLE BLOOD 153.7 nmol/L (66.5-200.0); VITAMIN B6,PYRIDOXAL PHOSPHATE 7.7 ug/L (2.0-32.8); VITAMIN E(ALPHA TOCOPHEROL) 7.9 mg/L (9.0-29.0)
== END ==
LOC: M LABNEURO 08:09
PROVIDERS: ATTEND Psychiatry & Neurology Neurology
DX: Z11.3 Encounter for screening for infections with a predominantly sexual mode of transmission (principal); E11.9 Type 2 diabetes mellitus without complications; E07.9 Disorder of thyroid, unspecified; R20.0 Anesthesia of skin; G36.0 Neuromyelitis optica [Devic]

== ENCOUNTER → 2018-12-14 | Outpatient (REF) | payer MEDICARE, MEDICAID ==
[2018-12-17 08:06] LABS: CERULOPLASMIN 20.9 mg/dL (19.0-39.0)
== END ==
LOC: M LABNEURO 12:59
PROVIDERS: ATTEND Psychiatry & Neurology Neurology
DX: E61.0 Copper deficiency (principal); Z79.82 Long term (current) use of aspirin; Z79.899 Other long term (current) drug therapy

== ENCOUNTER → 2019-01-10 | Outpatient (REF) | payer MEDICARE, MEDICAID ==
[~2019-01-10] MED LIST changes: +SENN-53 PO; -SENN1TAB40 PO
[2019-01-10 18:16] LABS: BASO # 0.1 10^3/uL (0.0-0.2); BASO % 0.6 % (0.0-1.0); EOS # 0.2 10^3/uL (0.0-0.5); EOS % 1.7 % (0.0-3.0); HEMATOCRIT 41.2 % (36.0-47.0); HEMOGLOBIN 13.3 g/dl (12.0-15.5); LYMPH # 3.2 10^3/uL (1.5-5.0); LYMPH % 31.1 % (24.0-44.0); MEAN CORPUSCULAR HEMOGLOBIN 30.2 pg (27.0-33.0); MEAN CORPUSCULAR HGB CONC 32.3 g/dl (32.0-36.5); MEAN CORPUSCULAR VOLUME 93.4 fl (80.0-96.0); MONO # 0.9 10^3/uL (0.0-0.8); MONO % 9.1 % (0.0-5.0); NEUTROPHILS # 5.8 10^3/uL (1.5-8.5); NEUTROPHILS % 57.1 % (36.0-66.0); PLATELET COUNT, AUTOMATED 340 10^3/uL (150-450); RED BLOOD COUNT 4.41 10^6/uL (4.00-5.40); WHITE BLOOD COUNT 10.1 10^3/uL (4.0-10.0)
[2019-01-10 18:48] LABS: ALBUMIN 3.3 GM/DL (3.2-5.2); ALT/SGPT 23 U/L (12-78); BILIRUBIN,TOTAL 0.5 MG/DL (0.2-1.0); BLOOD UREA NITROGEN 24 MG/DL (7-18); CALCIUM LEVEL 9.1 MG/DL (8.8-10.2); CARBON DIOXIDE LEVEL 24 MEQ/L (21-32); CHLORIDE LEVEL 108 MEQ/L (98-107); CREATININE FOR GFR 0.68 MG/DL (0.55-1.30); GLOMERULAR FILTRATION RATE > 60.0 (>39); GLUCOSE, FASTING 82 MG/DL (70-100); POTASSIUM SERUM 4.6 MEQ/L (3.5-5.1); SODIUM LEVEL 141 MEQ/L (136-145); TOTAL PROTEIN 6.8 GM/DL (6.4-8.2)
[2019-01-10 18:57] LABS: VITAMIN B12 LEVEL > 2000 PG/ML (247-911)
[2019-01-10 19:52] LABS: CA19-9 TUMOR MARKER,CARBOHYDRA 55.4 U/ML (<35.0)
== END ==
LOC: M SFHCPLAZ 15:31
PROVIDERS: ATTEND Physician Assistant Medical
DX: N28.9 Disorder of kidney and ureter, unspecified (principal); I10 Essential (primary) hypertension; E53.8 Deficiency of other specified B group vitamins; N20.1 Calculus of ureter
CPT/HCPCS: 36415; 80053; 82607; 85025; 86301; 90670; 96372; G0009; G0463; J3420

== ENCOUNTER → 2019-04-28 | Outpatient (CLI) | payer MEDICARE, MEDICAID ==
[~2019-04-28] MED LIST changes: +ONDA-83 PO; -ONDA4TAB5 PO
--- NOTE | 2019-04-28 10:42 | REP ---
CT ABDOMEN AND PELVIS WITHOUT CONTRAST: COMPARISON: 11/07/2018 as well as other prior exams. Visualized lung bases demonstrate mild interstitial fibrotic change. There is a small hiatal hernia. There has been prior gastric surgery. Liver is grossly unremarkable. Spleen is normal in size with no intrinsic abnormality. There is left adrenal vein thickening which is stable. Pancreas is grossly unremarkable. Left kidney demonstrates a small angiomyolipoma laterally in the mid aspect measuring 8 mm in diameter. Moderate right renal atrophy is present with a moderate degree of right hydroureteronephrosis. This is caused by a 6 mm calculus in the proximal right ureter. There is a 5 mm calculus in the inferior collecting system of the right kidney. There is an adjacent punctate calculus as well. No bladder calculus is seen. There is moderate atherosclerotic calcification of the abdominal aorta without aneurysm. There is no adenopathy. There is no free air or free fluid. There is no bowel wall thickening. No pelvic mass is visualized. Multiple small calcified fibroids are seen in the uterus. Metallic internal fixation is seen in the proximal left femur. There are degenerative changes of the spine. IMPRESSION: Moderate right renal atrophy. Moderate right hydronephrosis and proximal hydroureter caused by 6 mm calculus in proximal right ureter. This was seen on the prior exam of 11/07/2018 and is unchanged in position. Two intrarenal calculi are seen in the lower pole of the right kidney. Stable left adrenal gland thickening. 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 Electronically Signed by Andi Castano MD 04/28/2019 03:57 P
== END ==
LOC: M RAD 09:28
PROVIDERS: ATTEND Nurse Practitioner Family
DX: N13.30 Unspecified hydronephrosis (principal); N20.1 Calculus of ureter

== ENCOUNTER → 2019-05-01 | Outpatient (REF) | payer MEDICARE, MEDICAID ==
[~2019-05-01] MED LIST changes: +ASPI81TA85 PO; -GABA-1171; +PLAV1TAB2 PO
[2019-05-01 15:30] LABS: BASO # 0.1 10^3/uL (0.0-0.2); BASO % 0.7 % (0.0-1.0); EOS # 0.1 10^3/uL (0.0-0.5); EOS % 1.7 % (0.0-3.0); HEMATOCRIT 41.6 % (36.0-47.0); HEMOGLOBIN 12.7 g/dl (12.0-15.5); LYMPH # 2.8 10^3/uL (1.5-5.0); LYMPH % 36.5 % (24.0-44.0); MEAN CORPUSCULAR HEMOGLOBIN 28.9 pg (27.0-33.0); MEAN CORPUSCULAR HGB CONC 30.5 g/dl (32.0-36.5); MEAN CORPUSCULAR VOLUME 94.8 fl (80.0-96.0); MONO # 0.6 10^3/uL (0.0-0.8); MONO % 8.3 % (0.0-5.0); NEUTROPHILS % 52.5 % (36.0-66.0); PLATELET COUNT, AUTOMATED 336 10^3/uL (150-450); RED BLOOD COUNT 4.39 10^6/uL (4.00-5.40); WHITE BLOOD COUNT 7.6 10^3/uL (4.0-10.0)
[2019-05-01 16:05] LABS: ALBUMIN 3.2 GM/DL (3.2-5.2); ALT/SGPT 16 U/L (12-78); BILIRUBIN,TOTAL 0.6 MG/DL (0.2-1.0); BLOOD UREA NITROGEN 21 MG/DL (7-18); CALCIUM LEVEL 9.7 MG/DL (8.8-10.2); CARBON DIOXIDE LEVEL 27 MEQ/L (21-32); CHLORIDE LEVEL 106 MEQ/L (98-107); CREATININE FOR GFR 0.76 MG/DL (0.55-1.30); GLOMERULAR FILTRATION RATE > 60.0 (>39); GLUCOSE, FASTING 93 MG/DL (70-100); POTASSIUM SERUM 4.6 MEQ/L (3.5-5.1); SODIUM LEVEL 139 MEQ/L (136-145); TOTAL PROTEIN 6.9 GM/DL (6.4-8.2)
[2019-05-01 16:11] LABS: PTH INTACT 32.8 PG/ML (18.5-88.0)
[2019-05-01 16:12] LABS: VITAMIN B12 LEVEL 1798 PG/ML (247-911)
== END ==
LOC: M SFHCPLAZ 13:41
PROVIDERS: ATTEND Physician Assistant Medical
DX: E53.8 Deficiency of other specified B group vitamins (principal); E55.9 Vitamin D deficiency, unspecified; I10 Essential (primary) hypertension; N28.9 Disorder of kidney and ureter, unspecified
CPT/HCPCS: 36415; 80053; 82306; 82607; 83970; 85025; G0463

== ENCOUNTER → 2019-05-17 | Outpatient (CLI) | payer MEDICARE, MEDICAID ==
--- NOTE | 2019-05-17 11:52 | REPPI ---
CHEST, TWO VIEWS: Two views of the chest are performed and compared to a prior study of 09/13/2018. There is mild diffuse interstitial fibrotic change and mild biapical pleural thickening, stable. There is no acute infiltrate. The heart is normal in size. There is mild calcification of the thoracic aorta. Mediastinal silhouette is unchanged. There are mild degenerative changes of the spine. IMPRESSION: Stable chronic findings without evidence of acute infiltrate. Electronically Signed by Andi Castano MD 05/17/2019 03:24 P
[2019-05-17 13:33] LABS: HEMATOCRIT 38.7 % (36.0-47.0); HEMOGLOBIN 12.3 g/dl (12.0-15.5); MEAN CORPUSCULAR HEMOGLOBIN 29.6 pg (27.0-33.0); MEAN CORPUSCULAR HGB CONC 31.8 g/dl (32.0-36.5); MEAN CORPUSCULAR VOLUME 93.3 fl (80.0-96.0); PLATELET COUNT, AUTOMATED 311 10^3/uL (150-450); RED BLOOD COUNT 4.15 10^6/uL (4.00-5.40); WHITE BLOOD COUNT 9.3 10^3/uL (4.0-10.0)
[2019-05-17 13:38] LABS: BLOOD UREA NITROGEN 21 MG/DL (7-18); CALCIUM LEVEL 9.3 MG/DL (8.8-10.2); CARBON DIOXIDE LEVEL 25 MEQ/L (21-32); CHLORIDE LEVEL 110 MEQ/L (98-107); GLOMERULAR FILTRATION RATE > 60.0 (>39); GLUCOSE, FASTING 91 MG/DL (70-100); SODIUM LEVEL 140 MEQ/L (136-145)
[2019-05-17 13:52] LABS: INR 1.03; PROTHROMBIN TIME 13.2 SECONDS (11.8-14.0)
[2019-05-17 13:53] LABS: PARTIAL THROMBOPLASTIN TIME 29.7 SECONDS (25.0-38.4)
== END ==
LOC: M PLALAB 10:27
PROVIDERS: ATTEND Nurse Practitioner Family
DX: Z01.818 Encounter for other preprocedural examination (principal); N20.1 Calculus of ureter; Z79.82 Long term (current) use of aspirin; Z79.899 Other long term (current) drug therapy
CPT/HCPCS: 36415; 71046; 80048; 85027; 85610; 85730; G0463

== ENCOUNTER → 2019-05-20 | Outpatient (REF) | payer MEDICARE, MEDICAID ==
[2019-05-20 10:09] LABS: APPEARANCE, URINE CLOUDY (CLEAR); BACTERIA, URINE AUTO 2+ (NEGATIVE); BILIRUBIN, URINE AUTO NEGATIVE (NEGATIVE); BLOOD, URINE BLOOD 1+ (NEGATIVE); COLOR, URINE YELLOW (YELLOW); GLUCOSE, URINE (UA) AUTO NEGATIVE (NEGATIVE); KETONE, URINE AUTO NEGATIVE (NEGATIVE); LEUKOCYTE ESTERASE, URINE AUTO 3+ (NEGATIVE); MUCUS, URINE SMALL (NEGATIVE); NITRITE, URINE AUTO POSITIVE (NEGATIVE); PROTEIN, URINE AUTO NEGATIVE (NEGATIVE); RBC, URINE AUTO 7 /HPF (0-3); SPECIFIC GRAVITY URINE AUTO 1.016 (1.002-1.035); SQUAMOUS EPITHELIAL CELL UR AU 2 /HPF (0-6); UROBILINOGEN, URINE AUTO 0.2 mg/dL (0.0-2.0); WBC, URINE AUTO TNTC /HPF (0-3)
== END ==
LOC: M LAB REF 08:38
PROVIDERS: ATTEND Nurse Practitioner Family
DX: Z01.818 Encounter for other preprocedural examination (principal); N20.1 Calculus of ureter

== ENCOUNTER → 2019-05-22 | Outpatient (REF) | payer MEDICARE, MEDICAID ==
[2019-05-22 18:27] LABS: APPEARANCE, URINE CLOUDY (CLEAR); BACTERIA, URINE AUTO 3+ (NEGATIVE); BILIRUBIN, URINE AUTO NEGATIVE (NEGATIVE); BLOOD, URINE BLOOD 2+ (NEGATIVE); COLOR, URINE YELLOW (YELLOW); GLUCOSE, URINE (UA) AUTO NEGATIVE (NEGATIVE); KETONE, URINE AUTO NEGATIVE (NEGATIVE); LEUKOCYTE ESTERASE, URINE AUTO 3+ (NEGATIVE); MUCUS, URINE SMALL (NEGATIVE); NITRITE, URINE AUTO POSITIVE (NEGATIVE); PROTEIN, URINE AUTO NEGATIVE (NEGATIVE); RBC, URINE AUTO 4 /HPF (0-3); SPECIFIC GRAVITY URINE AUTO 1.015 (1.002-1.035); SQUAMOUS EPITHELIAL CELL UR AU 0 /HPF (0-6); UROBILINOGEN, URINE AUTO 0.2 mg/dL (0.0-2.0); WBC, URINE AUTO 133 /HPF (0-3)
== END ==
LOC: M SMT 17:09
PROVIDERS: ATTEND Nurse Practitioner Family
DX: Z01.818 Encounter for other preprocedural examination (principal); N20.0 Calculus of kidney

== ENCOUNTER → 2019-05-22 | Outpatient (CLI) | payer MEDICARE, MEDICAID ==
--- NOTE | 2019-05-22 11:47 | REP ---
CAROTID ULTRASOUND: Real-time sonographic evaluation and duplex Doppler interrogation of the extracranial carotid vasculatures is performed. Once again there is moderate plaquing and narrowing of both carotid bulbs and internal carotid arteries with elevated peak systolic velocity in the internal carotid arteries bilaterally. Findings are again compatible with bilateral stenosis 50-79%. There is normal direction of flow in both vertebral arteries. PEAK SYSTOLIC VELOCITY RIGHT LEFT ICA 154.0 cm/s 206.0 cm/s End diastolic velocity 20.9 33.9 Peak systolic velocity CCA 165.0 80.5 Peak systolic velocity ECA 256.0 211.0 ICA/CCA ratio 0.9 2.5 IMPRESSION: Findings most consistent with bilateral stenosis 50-79% internal carotid arteries. No significant change when compared to the prior study of 09/13/2018. Electronically Signed by Andi Castano MD 05/22/2019 01:36 P
== END ==
LOC: M RAD 10:44
PROVIDERS: ATTEND Family Medicine
DX: Z01.818 Encounter for other preprocedural examination (principal); I65.23 Occlusion and stenosis of bilateral carotid arteries; N20.0 Calculus of kidney

== ENCOUNTER 2019-05-24 12:02 | Day surgery (SDC) | payer MEDICARE, MEDICAID ==
[~2019-05-24] VITALS: Ht 172.7 cm; Wt 50.3 kg
[~2019-05-24 12:02] MED LIST changes: +LR 1,000 ML IV ONE; +ceFAZolin SOD 2 GM in IV 1 EA IV ONE
[2019-05-24] MEDS ORDERED: CONRAY-60 60% 50ML VIAL (Q9961) As Ordered ONE (15:20)
[2019-05-24] MEDS ORDERED: dexameTHASONE 4 MG/ML 1ML VIAL (J1100) As Ordered ONE (15:28)
[2019-05-24] MEDS ORDERED: LIDOCAINE 2% INJ 100 MG/5 ML SDV (FOR ANES.) As Ordered ONE (15:28)
[2019-05-24] MEDS ORDERED: MIDAZOLAM INJ 2 MG/2 ML VIAL (J2250) As Ordered ONE (15:28)
[2019-05-24] MEDS ORDERED: fentaNYL 100 MCG/2 ML INJECTION (J3010) As Ordered ONE (15:28)
[2019-05-24] MEDS ORDERED: ONDANSETRON 4MG/2ML VIAL (J2405) As Ordered ONE (15:28)
[2019-05-24] MEDS ORDERED: ePHEDrine SULFATE 25 MG/5 ML(5MG/ML) SYRINGE As Ordered ONE (15:29)
[2019-05-24] MEDS ORDERED: PHENYLephrine HCL 500 MCG/5 ML (100MCG/ML) SYRINGE (J2370) As Ordered ONE (15:29)
[2019-05-24] MEDS ORDERED: ACETAMINOPHEN 1000MG 100ML IV BTL (OFIRMEV) (J0131 PER 10MG) As Ordered ONE (15:29)
[2019-05-24] MEDS ORDERED: propofoL 200 MG/20 ML VIAL As Ordered ONE (15:29)
[2019-05-24] MEDS ORDERED: ROCURONIUM BROMIDE 50 MG/5 ML VIAL As Ordered ONE (15:37)
--- NOTE | 2019-05-24 16:41 | REP ---
Retrograde pyelogram: Two views. History: Stent placement. The 8 seconds of fluoroscopy time is reported. Findings: A sequence of two last image hold fluoroscopically obtained spot radiographs of the abdomen document right ureteral cannulation, contrast injection, and stent placement Electronically Signed by Israel Juan MD 05/24/2019 04:32 P
[2019-05-24] MEDS ORDERED: LR 1,000 ML IV SCH (17:00)
[2019-05-24] MEDS ORDERED: ONDANSETRON 4MG/2ML VIAL (J2405) IV PRN (17:00)
[2019-05-24] MEDS ORDERED: oxyCODONE 5MG TAB PO PRN (17:00)
[2019-05-24] MEDS ORDERED: PERCOCET 5MG/325MG TAB PO PRN (17:00)
[2019-05-24] MEDS ORDERED: fentaNYL 100 MCG/2 ML INJECTION (J3010) IV PRN (17:00)
[2019-05-24 18:12] VITALS: BP 157/72
--- NOTE | 2019-05-26 10:22 | RO ---
DATE OF PROCEDURE: 05/24/2019 PREPROCEDURE DIAGNOSIS: Right ureteral stone. POSTPROCEDURE DIAGNOSIS: Right ureteral stone. PROCEDURE: Cystoscopy, right ureteroscopy with laser lithotripsy and basket extraction of stones, right retrograde pyelogram with intraoperative interpretation of images, right ureteral stent placement. SURGEON: Jeremy Estevez MD FACULTY PHYSICIAN: None. ANESTHESIA: General. OPERATIVE INDICATIONS: This is a 69-year-old female who was found to have an obstructing 6 mm proximal right ureteral stone. She was brought to the operating room today for treatment. DESCRIPTION OF PROCEDURE: The patient brought to the operating room and general anesthesia was induced. Prophylactic antibiotics were infused. She was then placed in a dorsal lithotomy position, prepped and draped in the usual sterile fashion. A rigid cystoscope was inserted into the urethral meatus and advanced to the bladder. A guidewire was advanced up the right collecting system. I then advanced the ureteral access sheath up the right collecting system. I went up the access sheath with the flexible ureteroscope and within the proximal ureter the 6 mm stone was seen. The stone was fragmented into smaller pieces using a 272 micron laser fiber and the fragments were removed using a basket. I examined the rest of the kidney and noted there was a lot of debris inside the kidney. There were a few tiny stone fragments in the lower pole of favian. Any other stone fragments inside the kidney were small enough to pass. A retrograde pyelogram was performed and it was notable for mild right hydronephrosis with no extravasation. I then removed the ureteroscope along with the access sheath and no additional stones were seen within the ureter. I then utilized the wire to advance a 7 Macedonian x 22-32 cm JJ ureteral stent into the right collecting system. The wire was removed and there were adequate curls of the stent in the right renal pelvis and in the bladder. The bladder was emptied of all fluid and this marked the conclusion of the procedure. The patient was taken out of dorsal lithotomy position, awakened from anesthesia and transported to the recovery room in stable condition. Estimated blood loss 5 mL. Complications: None. Specimens: Kidney stone fragments. Plan: The patient will followup in clinic in a week or two for stent removal.
== END 2019-05-24 18:15 | disposition home or self-care (01) ==
LOC: M SDC 12:02
PROVIDERS: ATTEND Urology
DX: N20.0 Calculus of kidney (principal); N20.1 Calculus of ureter; I10 Essential (primary) hypertension; I25.2 Old myocardial infarction; K44.9 Diaphragmatic hernia without obstruction or gangrene; M81.0 Age-related osteoporosis without current pathological fracture; Z79.82 Long term (current) use of aspirin; Z79.02 Long term (current) use of antithrombotics/antiplatelets; Z98.84 Bariatric surgery status; Z87.891 Personal history of nicotine dependence
CPT/HCPCS: 52356; 74420; 82365; 88300; C1769; C1894; C2617; J0131; J0690; J1100; J2250; J2370; J2405; J3010; Q9961

== ENCOUNTER → 2019-07-21 | Outpatient (CLI) | payer MEDICARE, MEDICAID ==
[~2019-07-21] MED LIST changes: -LR 1,000 ML IV ONE; -ceFAZolin SOD 2 GM in IV 1 EA IV ONE
--- NOTE | 2019-07-21 14:50 | REP ---
REASON: Followup. COMPARISON: 06/09/2019, which showed bilateral internal carotid arterial stenosis of 50-79%. Today's exam is performed in the same fashion as the prior exam. Once again, there is echogenic material seen along the carotid arterial mcclain, which is moderate to severe and seen with some acoustic shadowing, consistent with calcific deposition, which is rather mild in appearance. RIGHT LEFT CCA systolic 159.2 cm/s 95.1 cm/s CCA diastolic 19.4 cm/s 21.1 cm/s ICA systolic 277.6 cm/s 246.0 cm/s ICA diastolic 30.1 cm/s 35.0 cm/s ICA/CCA ratio 1.7 2.5 Analysis of the spectral waveform shows bilateral internal carotid arterial spectral broadening. There is antegrade flow seen in both vertebral arteries. IMPRESSION: Peak systolic velocities in both right and left internal carotid arteries have increased significantly compared to the prior exam, and according to the consensus criteria, there could be near occlusion of right and/or left internal carotid arteries. A phone call was placed to Dr. Charlotte Desai to discuss these findings at this time. In addition, Salud , who works in the radiology department at [facility] to manage phone calls, is also reaching out to contact Dr. Desai and have her call me in regards to these findings seen today. I received a call back from the surgical Francia Hernandez and informed her of these findings. She informed me that they were getting ahold of the patient for evaluation. Electronically Signed by Bruce Ryan DO 07/21/2019 04:16 P
== END ==
LOC: M RAD 12:56
PROVIDERS: ATTEND Surgery Vascular Surgery
DX: I65.23 Occlusion and stenosis of bilateral carotid arteries (principal)

== ENCOUNTER → 2019-08-29 | Outpatient (REF) | payer MEDICARE, MEDICAID ==
[~2019-08-29] MED LIST changes: -MAPA325T2 PO; +MAPA325T8 PO
[2019-08-29 17:33] LABS: BASO # 0.1 10^3/uL (0.0-0.2); BASO % 0.7 % (0.0-1.0); EOS # 0.1 10^3/uL (0.0-0.5); EOS % 1.3 % (0.0-3.0); HEMATOCRIT 41.8 % (36.0-47.0); HEMOGLOBIN 13.5 g/dl (12.0-15.5); LYMPH # 2.6 10^3/uL (1.5-5.0); MEAN CORPUSCULAR HEMOGLOBIN 28.8 pg (27.0-33.0); MEAN CORPUSCULAR HGB CONC 32.3 g/dl (32.0-36.5); MEAN CORPUSCULAR VOLUME 89.1 fl (80.0-96.0); MONO # 0.7 10^3/uL (0.0-0.8); MONO % 6.5 % (0.0-5.0); NEUTROPHILS % 66.2 % (36.0-66.0); PLATELET COUNT, AUTOMATED 355 10^3/uL (150-450); RED BLOOD COUNT 4.69 10^6/uL (4.00-5.40); WHITE BLOOD COUNT 10.5 10^3/uL (4.0-10.0)
[2019-08-29 18:04] LABS: ALBUMIN 3.4 GM/DL (3.2-5.2); ALT/SGPT 18 U/L (12-78); BILIRUBIN,TOTAL 0.3 MG/DL (0.2-1.0); BLOOD UREA NITROGEN 16 MG/DL (7-18); CALCIUM LEVEL 9.1 MG/DL (8.8-10.2); CARBON DIOXIDE LEVEL 27 MEQ/L (21-32); CHLORIDE LEVEL 109 MEQ/L (98-107); CREATININE FOR GFR 0.81 MG/DL (0.55-1.30); GLOMERULAR FILTRATION RATE > 60.0 (>39); GLUCOSE, FASTING 83 MG/DL (70-100); POTASSIUM SERUM 4.2 MEQ/L (3.5-5.1); SODIUM LEVEL 142 MEQ/L (136-145)
== END ==
LOC: M SFHCPLAZ 13:55
PROVIDERS: ATTEND Physician Assistant Medical
DX: K27.9 Peptic ulcer, site unspecified, unspecified as acute or chronic, without hemorrhage or perforation (principal); E55.9 Vitamin D deficiency, unspecified; N28.9 Disorder of kidney and ureter, unspecified
CPT/HCPCS: 36415; 80053; 85025; G0463

== ENCOUNTER → 2020-01-05 | Outpatient (REF) | payer MEDICARE, MEDICAID ==
[~2020-01-05] MED LIST changes: +AMLO1TAB24 PO; -AMLO5TAB6 PO; -ASPI81TA85 PO; +ASPI81TA86 PO; +ENAL5TA PO; -ENAL5TAB PO; -MELA5TAB31 PO; +MELA5TAB36 PO; +PANT40TA29 PO; -PANT40TA3 PO
[2020-01-05 15:24] LABS: BASO # 0.1 10^3/uL (0.0-0.2); BASO % 0.7 % (0.0-1.0); EOS # 0.1 10^3/uL (0.0-0.5); EOS % 1.1 % (0.0-3.0); HEMATOCRIT 40.5 % (36.0-47.0); HEMOGLOBIN 12.8 g/dl (12.0-15.5); LYMPH # 2.1 10^3/uL (1.5-5.0); LYMPH % 24.9 % (24.0-44.0); MEAN CORPUSCULAR HEMOGLOBIN 28.6 pg (27.0-33.0); MEAN CORPUSCULAR HGB CONC 31.6 g/dl (32.0-36.5); MEAN CORPUSCULAR VOLUME 90.4 fl (80.0-96.0); MONO # 0.5 10^3/uL (0.0-0.8); MONO % 6.5 % (0.0-5.0); NEUTROPHILS # 5.5 10^3/uL (1.5-8.5); NEUTROPHILS % 66.4 % (36.0-66.0); PLATELET COUNT, AUTOMATED 350 10^3/uL (150-450); RED BLOOD COUNT 4.48 10^6/uL (4.00-5.40); WHITE BLOOD COUNT 8.3 10^3/uL (4.0-10.0)
[2020-01-05 15:47] LABS: ALBUMIN 3.5 GM/DL (3.2-5.2); ALT/SGPT 14 U/L (12-78); BILIRUBIN,TOTAL 0.4 MG/DL (0.2-1.0); BLOOD UREA NITROGEN 22 MG/DL (7-18); CALCIUM LEVEL 9.7 MG/DL (8.8-10.2); CARBON DIOXIDE LEVEL 24 MEQ/L (21-32); CHLORIDE LEVEL 110 MEQ/L (98-107); CREATININE FOR GFR 0.84 MG/DL (0.55-1.30); GLOMERULAR FILTRATION RATE > 60.0 (>39); GLUCOSE, FASTING 91 MG/DL (70-100); POTASSIUM SERUM 4.3 MEQ/L (3.5-5.1); SODIUM LEVEL 141 MEQ/L (136-145); TOTAL PROTEIN 7.2 GM/DL (6.4-8.2)
[2020-01-05 15:58] LABS: PTH INTACT 53.3 PG/ML (18.5-88.0); TOTAL 25(OH) VITAMIN D 39.8 NG/ML (30.0-100.0); VITAMIN B12 LEVEL 948 PG/ML (247-911)
== END ==
LOC: M SFHCPLAZ 13:16
PROVIDERS: ATTEND Physician Assistant Medical
DX: E55.9 Vitamin D deficiency, unspecified (principal); I10 Essential (primary) hypertension; E53.8 Deficiency of other specified B group vitamins

== ENCOUNTER → 2020-01-05 | Outpatient (CLI) | payer MEDICARE, MEDICAID ==
--- NOTE | 2020-01-05 14:00 | REPPI ---
INDICATION: R05 COUGH. COMPARISON: May 17, 2019. TECHNIQUE: Two views.. FINDINGS: The lungs are well inflated and free of infiltrate. The pleural angles are sharp. The heart size is normal. Pulmonary vasculature is not increased. No significant bony abnormality is seen. There are surgical clips in the upper abdomen. IMPRESSION: No infiltrates seen. No active disease.. <Electronically signed by Hunter Juan > 01/05/20 [id number]
== END ==
LOC: M PLAIMG 13:16
PROVIDERS: ATTEND Physician Assistant Medical
DX: R05 Cough (principal); E55.9 Vitamin D deficiency, unspecified; I10 Essential (primary) hypertension; E53.8 Deficiency of other specified B group vitamins; Z23 Encounter for immunization
CPT/HCPCS: 36415; 71046; 80053; 82306; 82607; 83970; 85025; 90682; G0008

== ENCOUNTER 2020-04-04 13:15 | Inpatient (IN) | payer MEDICARE, MEDICAID ==
[~2020-04-04] VITALS: Ht 162.6 cm; Wt 51.9 kg
--- OUTSIDE RECORDS SUMMARY | 2020-04-04 14:10 | CCD ---
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 Acti ve 307606623 Problem Leg length discrepancy M21.70 Active 90007872 Problem Constipation, unspecified constipation type K59.00 Active 38669090 Problem Neuropathy G62.9 Active 484892717 Problem Vitamin B12 deficiency E53.8 Active 265757859 Problem Weight loss R63.4 Active 38965346 Problem Hydronephrosis with urinary obstruction due to renal calcu cari N13.2 Active 914506073 Problem Encephalopathy G93.40 Active 11769560 Problem Osteoporosis M81.0 Active 16780547 Problem Bandemia D72.825 Active 982215521 Problem Age-related incipient cataract of both eyes H25.09 3 Active 653118808 Problem Iron deficiency anemia secondary to inadequate d ietary iron intake D50.8 Active 389410846 Problem Essential hypertension I10 Active 97580249 Problem Other chronic pain G89.29 Active 05538535 Problem Tobacco use Z72.0 Active 926641085 Problem Bilateral hearing loss, unspecified hearing loss type H91.93 Active 28913823 Problem S/p left hip fracture Z87.81 Active 965090018 Problem Localized osteoarthritis of hip M16.9 Active 012803357 Problem Breast cancer screening Z12.39 Active 92766693 6 Problem Ureterolithiasis N20.1 Active 01023954 Problem Coronary artery disease, ang steven presence unspecified, unspecified vessel or lesion type, unspecified whether [place] or transplanted heart I25.10 Active 15203446 Problem History of [place] (myocardial infarction) I25.2 Ac tive 206774361 Problem PUD (peptic ulcer disease) K27.9 Active 06134 003 Problem Stenosis of left carotid artery I65.22 Active 869307115481522 Problem Renal insufficiency N28.9 Active 687612186 Problem Bilateral carotid artery stenosis I65.23 Active 374606196 Problem 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 1 Active 663995111 Problem Mild cognitive impairment G31.84 Active 686959 002 Problem Stenosis of both vertebral arteries I65.03 Acti ve 53622506 Problem Gastroesophageal reflux disease without esophagitis K21.9 Active 200904518 Problem Sjogren's syndrome with keratoconjunctivitis sicca M35.01 Active 64263284 Problem Peripheral polyneuropathy G62.9 Active 474591 00 ALLERGIES No Known Allergies ENCOUNTERS from 1950 to 2020 Encounter Location Date Provider Diagnosis [address] [address] Feb, Aleida Hillman Vitamin D deficiency E55.9 IMMUNIZATIONS Vaccine Route Administration Date Status Vitamin B-12 1000mcg/1mL (Cyanocobalamin) SC Subcutaneous Oct Administered Vitamin B-12 1000mcg/1mL (Cyanocobalamin) IM Intramuscular Dec 212018 Administered Influenza (18 yrs & older) Flublok IM Intramuscular Feb 07, 2019 Administered Influenza (18 yrs & older) Flublok IM Intramuscular Jan 05, 2020 Administered Vitamin B-12 1000mcg/1mL (Cyanocobalamin) IM Intramuscular Mar 232018 Administered Vitamin B-12 1000mcg/1mL (Cyanocobalamin) IM Intramuscular June 06, 2018 Administered Vitamin B-12 1000mcg/1mL (Cyanocobalamin) IM Intramuscular July 07, 2018 Administered Vitamin B-12 1000mcg/1mL (Cyanocobalamin) IM Intramuscular October 14, 2018 Administered Pneumococcal 0.5mL (Prevnar 13) IM Intramuscular Jan 10, 2019 Administered Vitamin B-12 1000mcg/1mL (Cyanocobalamin) IM Intramuscular Oct 202016 Administered Vitamin B-12 1000mcg/1mL (Cyanocobalamin) IM Intramuscular October 07, 2016 Administered Vitamin B-12 1000mcg/1mL (Cyanocobalamin) IM Intramuscular September 08, 2016 Administered Vitamin B-12 1000mcg/1mL (Cyanocobalamin) IM Intramuscular July 202016 Administered Vitamin B-12 1000mcg/1mL (Cyanocobalamin) IM Intramuscular July 03, 2016 Administered Vitamin B-12 1000mcg/1mL (Cyanocobalamin) IM Intramuscular June 02, 2016 Administered Vitamin B-12 1000mcg/1mL (Cyanocobalamin) IM Intramuscular Apr 222016 Administered Influenza (High Dose 65 & up) IM Intramuscular Jan 07, 2017 A dministered Vitamin B-12 1000mcg/1mL (Cyanocobalamin) IM Intramuscular Mar 232017 Administered Vitamin B-12 1000mcg/1mL (Cyanocobalamin) IM Intramuscular October 18, 2017 Administered Vitamin B-12 1000mcg/1mL (Cyanocobalamin) IM Intramuscular Oct 222017 Administered Vitamin B-12 1000mcg/1mL (Cyanocobalamin) IM Intramuscular Dec 16, 2017 Administered Vitamin B-12 1000mcg/1mL (Cyanocobalamin) SC Subcutaneous Dec Administered Vitamin B-12 1000mcg/1mL (Cyanocobalamin) IM Intramuscular Jan 212016 Administered Vitamin B-12 1000mcg/1mL (Cyanocobalamin) IM Intramuscular Feb 202016 Administered Vitamin B-12 1000mcg/1mL (Cyanocobalamin) IM Intramuscular Jan Administered Influenza (18 yrs & older) Flublok IM Intramuscular Feb 09, 2018 Administered Vitamin B-12 1000mcg/1mL (Cyanocobalamin) IM Intramuscular Feb 202017 Administered SOCIAL HISTORY Tobacco Use: Social History Observation Description Date Details (start date - stop date) Former Smoker Sex Assigned At : Social History Observation Description Sex Assigned At Unknown Education: Question Answer Notes Level of Education: High School Audit Question Answer Notes Total Score: 0 Interpretation: Alcohol Education Drug and Alcohol Question Answer Notes Total Score: 0 Interpretation: No problems reported Alcohol Screening: Question Answer Notes Did you have a drink containing alcohol in the past year? No Points 0 Interpretation Negative Tobacco Use: Question Answer Notes Are you a: former smoker How long has it been since you last smoked? 1-5 years REASON FOR REFERRAL No Information VITAL SIGNS No information MEDICATIONS Medication SIG (Take, Route, Frequency, Duration) Notes Start Da te End Date Status Carvedilol 6.25 MG 1 tablet Orally twice a day for 90 day(s) Active AmLODIPine Besylate 10 MG 1 tablet Orally Once a day Active Gabapentin 100 MG 2 capsule Orally bid for 90 days Active Tums 500 MG 1 tablet Orally twice daily Active EQL Vitamin D3 2000 UNIT 1 capsule Orally Once a day for 90 days Active Atorvastatin Calcium 10 MG 1 tablet Orally Once a day for 90 days Active Fosamax 70 MG 1 tablet Orally weekly for 30 day(s) Active Acetaminophen 325 MG 1-2 capsules as needed Orally every 6 hrs Active Plavix 75 MG 1 tablet Orally Once a day for 90 days Active Aspir-81 81 MG 1 tablet Orally Once a day for 90 days Active PROCEDURES No Information RESULTS No Results REASON FOR VISIT EQL Vitamin D3 2000 UNIT Capsule MEDICAL (GENERAL) HISTORY Type Description Date Medical History hypertension-LAE 38, mode TR, LVEF 65% b y 03/2016 TTE-Antecol Medical History Hyperlipidemia Medical History ho NSTEMI 11/2015 c Left hip fracture, SB Intusseception-03/2016 normal DA stress SPECT perfusion-[facility] Medical History L femoral head fracture, ORIF 12/05 above @ [facility] Medical History PUD-resulted in Kerwin-en-Y prior to [place] 2 008 Medical History GERD Medical History Nephrolithiasis Medical History UTI, metabolic acidosis, Alt ered MS, TIA, KUSUM c hydronephrosis resolved discharged 03/10- from [facility] Medical History Osteoporosis 03/04/2016 Dexa f/u 2Y Medical History Hyperextension L knee went to ED 07/2015 Medical History Vitamin b12 deficiency on injections Surgical History Colon Resection Surgical History Kerwin-en- Y in [facility]; subtotal partial gas trectomy 2007 Surgical History SBO, Intusseception @ [facility], 2016 Hospitalization History surgery related Hospitalization History child Hospitalization History hypokalemia 01/20 Hospitalization History dizzy,bp 03/10-03/14 Hospitalization History Nelly-en- Y in [facility] 2007 Hospitalization History Rehab-PT 09/2018 Goals Section No Information Health Concerns No Information MEDICAL EQUIPMENT No Information MENTAL STATUS No Information FUNCTIONAL STATUS No Information ASSESSMENTS Encounter Date Diagnosis Assessment Notes Treatment Notes Treatm ent Clinical Notes Feb, Vitamin D deficiency (ICD-10 - E55.9) PLAN OF TREATMENT Medication Medication Name Sig Start Date Stop Date Carvedilol 6.25 MG 1 tablet Orally twice a day for 90 day(s) Acetaminophen 325 MG 1-2 capsules as needed Orally every 6 hrs Plavix 75 MG 1 tablet Orally Once a day for 90 days Fosamax 70 MG 1 tablet Orally weekly for 30 day(s) Gabapentin 100 MG 2 capsule Orally bid for 90 days AmLODIPine Besylate 10 MG 1 tablet Orally Once a day Tums 500 MG 1 tablet Orally twice daily EQL Vitamin D3 2000 UNIT 1 capsule Orally Once a day for 90 days Atorvastatin Calcium 10 MG 1 tablet Orally Once a day for 90 day s Aspir-81 81 MG 1 tablet Orally Once a day for 90 days Next Appt Details Provider Name:Aleida Hillman, 05-10 01:00:00 PM, [address] [place], [address], Provider Name:Moris Alonzo, 2020-05-31 09:15:00 AM, [address], [place], [address], Insurance Providers Payer Name Payer Address Payer Phone Insured Name Patient Relati onship to Insured Coverage Start Date Coverage End Date MEDICAID [id number] [address] [facility] [id number] [facility] [address] [facility] [address] [place]
--- OUTSIDE RECORDS SUMMARY | 2020-04-04 14:10 | CCD ---
Author Author [facility] Organization [facility] Address Unknown Phone Unavailable Care Team Providers Care Sensory Scientist Name Role Phone Aleida Hillman Unavailable PROBLEMS Type Condition ICD9-CM Code SVZ10-OP Code Onset Dates Condition S tatus SNOMED Code Notes Problem Need for hepatitis C screening test Z11.59 Acti ve 188466844 Problem Leg cramps R25.2 Active 873507946 Problem Arthralgia of left shoulder region M25.512 Activ e 264500340 Problem Vitamin D deficiency E55.9 Active 93846963 Problem History of Nelly-en-Y gastric bypass Z98.84 Acti ve 228147286 Problem Leg length discrepancy M21.70 Active 83866860 Problem Constipation, unspecified constipation type K59.00 Active 62924323 Problem Neuropathy G62.9 Active 638451836 Problem Vitamin B12 deficiency E53.8 Active 584731068 Problem Weight loss R63.4 Active 81884949 Problem Hydronephrosis with urinary obstruction due to renal calcu cari N13.2 Active 882351555 Problem Encephalopathy G93.40 Active 53570473 Problem Osteoporosis M81.0 Active 21397699 Problem Bandemia D72.825 Active 832131750 Problem Age-related incipient cataract of both eyes H25.09 3 Active 066562184 Problem Iron deficiency anemia secondary to inadequate d ietary iron intake D50.8 Active 905809348 Problem Essential hypertension I10 Active 23499632 Problem Other chronic pain G89.29 Active 48565923 Problem Tobacco use Z72.0 Active 408534123 Problem Bilateral hearing loss, unspecified hearing loss type H91.93 Active 67065889 Problem S/p left hip fracture Z87.81 Active 315408114 Problem Localized osteoarthritis of hip M16.9 Active 003718469 Problem Breast cancer screening Z12.39 Active 99547926 6 Problem Ureterolithiasis N20.1 Active 32817445 Problem Coronary artery disease, ang steven presence unspecified, unspecified vessel or lesion type, unspecified whether [place] or transplanted heart I25.10 Active 73238213 Problem History of [place] (myocardial infarction) I25.2 Ac tive 641055514 Problem PUD (peptic ulcer disease) K27.9 Active 89790 003 Problem Stenosis of left carotid artery I65.22 Active 165969563855583 Problem Renal insufficiency N28.9 Active 686190754 Problem Bilateral carotid artery stenosis I65.23 Active 198901055 Problem 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 1 Active 326882238 Problem Mild cognitive impairment G31.84 Active 199659 002 Problem Stenosis of both vertebral arteries I65.03 Acti ve 37973185 Problem Gastroesophageal reflux disease without esophagitis K21.9 Active 774252456 Problem Sjogren's syndrome with keratoconjunctivitis sicca M35.01 Active 96556477 Problem Peripheral polyneuropathy G62.9 Active 773703 00 ALLERGIES No Known Allergies ENCOUNTERS from 1950 to 2020-03-25 Encounter Location Date Provider Diagnosis [address] [place] [address] Mar, Aleida Hillman IMMUNIZATIONS Vaccine Route Administration Date Status Vitamin [...] Information RESULTS No Results REASON FOR VISIT Change of insurance MEDICAL (GENERAL) HISTORY Type Description Date Medical History hypertension-LAE 38, mode TR, LVEF 65% b y 03/2016 TTE-Antecol Medical History Hyperlipidemia Medical History ho NSTEMI 11/2015 c Left hip fracture, SB Intusseception-03/2016 normal DA stress SPECT perfusion-[facility] Medical History L femoral head fracture, ORIF 12/05 above @ [facility] Medical History PUD-resulted in [place]win-en-Y prior to [place] 2 008 Medical History GERD Medical History Nephrolithiasis Medical History UTI, metabolic acidosis, Alt ered MS, TIA, KUSUM c hydronephrosis resolved discharged 03/10- from [facility] Medical History Osteoporosis 03/04/2016 Dexa f/u 2Y Medical History Hyperextension L knee went to ED 07/2015 Medical History Vitamin b12 deficiency on injections Surgical History Colon Resection Surgical History Kerwin-en- Y in [facility]; subtotal partial gas trectomy 2007 Surgical History SBO, Intusseception @ [facility], 2016 Hospitalization History surgery related Hospitalization History child Hospitalization History hypokalemia 01/20 Hospitalization History dizzy,bp 03/10-03/14 Hospitalization History Nelly-en- Y in [facility] 2007 Hospitalization History Rehab-PT 09/2018 Goals Section No Information Health Concerns No Information MEDICAL EQUIPMENT No Information MENTAL STATUS No Information FUNCTIONAL STATUS No Information ASSESSMENTS No Information PLAN OF TREATMENT Medication Medication Name Sig [...] Provider Name:Aleida Hillman, 05-10 01:00:00 PM, [address] [place], [address], Provider Name:Moris Alonzo, 2020-05-31 09:15:00 AM, [address] [place], [address], Insurance Providers Payer Name Payer Address Payer Phone Insured Name Patient Relati onship to Insured Coverage Start Date Coverage End Date MEDICAID [employer] [address] [facility] [id number] [place] [facility] [address] [facility] [phone] [place]
--- OUTSIDE RECORDS SUMMARY | 2020-04-04 14:10 | CCD ---
Author Author [facility] Organization [facility] Address Unknown Phone Unavailable Care Team Providers Care Hand Gluer And Slicer Name Role Phone Bart Branch Unavailable PROBLEMS Type Condition ICD9-CM Code [id number] Code Onset Dates Condition S tatus SNOMED Code Notes Problem Need for hepatitis C screening test Z11.59 Acti ve 161444855 Problem Leg cramps R25.2 Active 138865104 Problem Arthralgia of left shoulder region M25.512 Activ e 762453897 Problem Vitamin D deficiency E55.9 Active 64810988 Problem History of Nelly-en-Y gastric bypass Z98.84 Acti ve 670029125 Problem Leg length discrepancy M21.70 Active 32650885 Problem Constipation, unspecified constipation type K59.00 Active 61559608 Problem Neuropathy G62.9 Active 063631327 Problem Vitamin B12 deficiency E53.8 Active 979926894 Problem Weight loss R63.4 Active 47702072 Problem Hydronephrosis with urinary obstruction due to renal calcu cari N13.2 Active 585591676 Problem Encephalopathy G93.40 Active 81985792 Problem Osteoporosis M81.0 Active 14066503 Problem Bandemia D72.825 Active 398033306 Problem Age-related incipient cataract of both eyes H25.09 3 Active 483485079 Problem Iron deficiency anemia secondary to inadequate d ietary iron intake D50.8 Active 516853375 Problem Essential hypertension I10 Active 08594514 Problem Other chronic pain G89.29 Active 98015031 Problem Tobacco use Z72.0 Active 110221144 Problem Bilateral hearing loss, unspecified hearing loss type H91.93 Active 36554905 Problem S/p left hip fracture Z87.81 Active 893169368 Problem Localized osteoarthritis of hip M16.9 Active 871773108 Problem Breast cancer screening Z12.39 Active 74142509 6 Problem Ureterolithiasis N20.1 Active 20160166 Problem Coronary artery disease, ang steven presence unspecified, unspecified vessel or lesion type, unspecified whether [place] or transplanted heart I25.10 Active 58533899 Problem History of [place] (myocardial infarction) I25.2 Ac tive 051079054 Problem PUD (peptic ulcer disease) K27.9 Active 61246 003 Problem Stenosis of left carotid artery I65.22 Active 604857482214480 Problem Renal insufficiency N28.9 Active 780083221 Problem Bilateral carotid artery stenosis I65.23 Active 796816455 Problem 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 1 Active 097465408 Problem Mild cognitive impairment G31.84 Active 225657 002 Problem Stenosis of both vertebral arteries I65.03 Acti ve 03932082 Problem Gastroesophageal reflux disease without esophagitis K21.9 Active 786193509 Problem Sjogren's syndrome with keratoconjunctivitis sicca M35.01 Active 85927079 Problem Peripheral polyneuropathy G62.9 Active 992047 00 ALLERGIES No Known Allergies ENCOUNTERS from 1950 to 2020-04-01 Encounter Location Date Provider Diagnosis [address] [place] [address] 08 Mar, 021 Bart Branch IMMUNIZATIONS Vaccine Route Administration Date Status Vitamin [...] Vitamin B-12 1000mcg/1mL (Cyanocobalamin) IM Intramuscular Dec 2 7, 2018 Administered SOCIAL HISTORY Tobacco Use: Social History [...] Notes Start Da te End Date Status Plavix 75 MG 1 tablet Orally Once a day for 90 days Active Acetaminophen 325 MG 1-2 capsules as needed Orally every 6 hrs Active Fosamax 70 MG 1 tablet Orally weekly for 30 day(s) Active Atorvastatin Calcium 10 MG 1 tablet Orally Once a day for 90 days Active Tums 500 MG 1 tablet Orally twice daily Active EQL Vitamin D3 2000 UNIT 1 capsule Orally Once a day for 90 days Active Carvedilol 6.25 MG 1 tablet Orally twice a day for 90 day(s) Active Aspir-81 81 MG 1 tablet Orally Once a day for 90 days Active Gabapentin 100 MG 2 capsule Orally bid for 90 days Active PROCEDURES No Information RESULTS No Results REASON FOR VISIT behavior concerns MEDICAL (GENERAL) HISTORY Type Description Date Medical History hypertension-LAE 38, mode TR, LVEF 65% b y 03/2016 TTE-Antecol Medical History Hyperlipidemia Medical History ho NSTEMI 11/2015 c Left hip fracture, SB Intusseception-03/2016 normal DA stress SPECT perfusion-[facility] Medical History L femoral head fracture, ORIF 12/[address] [facility] Medical History PUD-resulted in Kerwin-en-Y prior to [place] 2 008 Medical History GERD Medical History Nephrolithiasis Medical History UTI, metabolic acidosis, Alt ered MS, TIA, KUSUM c hydronephrosis resolved discharged 03/10- from [facility] Medical History Osteoporosis 03/04/2016 Dexa f/u 2Y Medical History Hyperextension L knee went to ED 07/2015 Medical History Vitamin b12 deficiency on injections Surgical History Colon Resection Surgical History Kerwin-en- Y in [facility]; subtotal partial gas trectomy 2007 Surgical History SBO, Intusseception @ [facility], 2016 Hospitalization History surgery related Hospitalization History child Hospitalization History hypokalemia 01/20 Hospitalization History dizzy,bp 03/10-03/14 Hospitalization History Nelly-en- Y in [facility] 2007 Hospitalization History Rehab-PT 09/2018 Goals Section No Information Health Concerns No Information MEDICAL EQUIPMENT No Information MENTAL STATUS No Information FUNCTIONAL STATUS No Information ASSESSMENTS No Information PLAN OF TREATMENT Medication Medication Name Sig Start Date Stop Date Plavix 75 MG 1 tablet Orally Once a day for 90 days Carvedilol 6.25 MG 1 tablet Orally twice a day for 90 day(s) Aspir-81 81 MG 1 tablet Orally Once a day for 90 days EQL Vitamin D3 2000 UNIT 1 capsule Orally Once a day for 90 days Acetaminophen 325 MG 1-2 capsules as needed Orally every 6 hrs Fosamax 70 MG 1 tablet Orally weekly for 30 day(s) Atorvastatin Calcium 10 MG 1 tablet Orally Once a day for 90 day s Tums 500 MG 1 tablet Orally twice daily Gabapentin 100 MG 2 capsule Orally bid for 90 days Next Appt Details Provider Name:Aleida Hillman, 04-25 02:30:00 PM, [address] [place], [address], Provider Name:Moris Alonzo, 2020-05-31 09:15:00 AM, [address], [place], [address], Insurance Providers Payer Name Payer Address Payer Phone Insured Name Patient Relati onship to Insured Coverage Start Date Coverage End Date [facility] [address] [facility] [phone] [place] MEDICAID [facility] [address] [facility] [id number] [place]
--- OUTSIDE RECORDS SUMMARY | 2020-04-04 14:10 | CCD ---
Author Author [facility] Organization [facility] Address Unknown Phone Unavailable Care Team Providers Care Director Underwriter Sales Name Role Phone Aleida Hillman Unavailable PROBLEMS Type Condition ICD9-CM Code [id number] Code Onset Dates Condition S tatus SNOMED Code Notes Problem Need for hepatitis C screening test Z11.59 Acti ve 540710635 Problem Leg cramps R25.2 Active 774812610 Problem Arthralgia of left shoulder region M25.512 Activ e 534445702 Problem Vitamin D deficiency E55.9 Active 90753390 Problem History of Nelly-en-Y gastric bypass Z98.84 Acti ve 246811243 Problem Leg length discrepancy M21.70 Active 46910598 Problem Constipation, unspecified constipation type K59.00 Active 61335964 Problem Neuropathy G62.9 Active 048277074 Problem Vitamin B12 deficiency E53.8 Active 815999175 Problem Weight loss R63.4 Active 10736265 Problem Hydronephrosis with urinary obstruction due to renal calcu cari N13.2 Active 740684647 Problem Encephalopathy G93.40 Active 79832808 Problem Osteoporosis M81.0 Active 14368380 Problem Bandemia D72.825 Active 443894426 Problem Age-related incipient cataract of both eyes H25.09 3 Active 389743135 Problem Iron deficiency anemia secondary to inadequate d ietary iron intake D50.8 Active 024513600 Problem Essential hypertension I10 Active 42208232 Problem Other chronic pain G89.29 Active 57830218 Problem Tobacco use Z72.0 Active 858188260 Problem Bilateral hearing loss, unspecified hearing loss type H91.93 Active 79602153 Problem S/p left hip fracture Z87.81 Active 372440649 Problem Localized osteoarthritis of hip M16.9 Active 798227716 Problem Breast cancer screening Z12.39 Active 02278248 6 Problem Ureterolithiasis N20.1 Active 96264595 Problem Coronary artery disease, ang steven presence unspecified, unspecified vessel or lesion type, unspecified whether [place] or transplanted heart I25.10 Active 37428876 Problem History of [place] (myocardial infarction) I25.2 Ac tive 378250638 Problem PUD (peptic ulcer disease) K27.9 Active 74239 003 Problem Stenosis of left carotid artery I65.22 Active 472013459399071 Problem Renal insufficiency N28.9 Active 858839260 Problem Bilateral carotid artery stenosis I65.23 Active 432004005 Problem 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 1 Active 175641020 Problem Mild cognitive impairment G31.84 Active 507738 002 Problem Stenosis of both vertebral arteries I65.03 Acti ve 83319055 Problem Gastroesophageal reflux disease without esophagitis K21.9 Active 653112358 Problem Sjogren's syndrome with keratoconjunctivitis sicca M35.01 Active 33240143 Problem Peripheral polyneuropathy G62.9 Active 296374 00 ALLERGIES No Known Allergies ENCOUNTERS from 1950 to 2020-02-27 Encounter Location Date Provider Diagnosis [address] [address] Feb, Aleida Swatsworth Neuropathy G62.9 ; Coronary artery disea se, angina presence unspecified, unspecified vessel or lesion type, unspecified whether [place] or transplanted heart I25.10 and Essential hypertension I10 IMMUNIZATIONS Vaccine Route Administration Date Status Vitamin [...] twice a day for 90 day(s) Active Gabapentin 100 MG 2 capsule Orally bid for 90 days Active EQL Vitamin D3 2000 UNIT 1 capsule Orally Once a day for 90 days Active Aspir-81 81 MG 1 tablet Orally Once a day for 90 days Active Tums 500 MG 1 tablet Orally twice daily Active AmLODIPine Besylate 10 MG 1 tablet Orally Once a day Active Fosamax 70 MG 1 tablet Orally weekly for 30 day(s) Active Acetaminophen 325 MG 1-2 capsules as needed Orally every 6 hrs Active Plavix 75 MG 1 tablet Orally Once a day for 90 days Active Atorvastatin Calcium 10 MG 1 tablet Orally Once a day for 90 days Active PROCEDURES No Information RESULTS No Results REASON FOR VISIT meds refill MEDICAL (GENERAL) HISTORY Type Description Date Medical History hypertension-LAE 38, mode TR, LVEF 65% b y 03/2016 TTE-Antecol Medical History Hyperlipidemia Medical History ho NSTEMI 11/2015 c Left hip fracture, SB Intusseception-03/2016 normal DA stress SPECT perfusion-[facility] Medical History L femoral head fracture, ORIF 12/05 above @ [facility] Medical History PUD-resulted in [place]win-en-Y prior to [place] 2 008 Medical History GERD Medical History Nephrolithiasis Medical History UTI, metabolic acidosis, Alt ered MS, TIA, KUSUM c hydronephrosis resolved discharged 03/10- from [facility] Medical History Osteoporosis 03/04/2016 Dexa f/u 2Y Medical History Hyperextension L knee went to ED 07/2015 Medical History Vitamin b12 deficiency on injections Surgical History Colon Resection Surgical History Kerwin-en- Y in [facility]; subtotal partial gas trectomy 2007 Surgical History SBO, Intusseception @ [facility], 2016 Hospitalization History surgery related Hospitalization History child Hospitalization History hypokalemia 01/20 Hospitalization History dizzy,bp 03/10-03/14 Hospitalization History Nelly-en- Y in [facility] 2007 Hospitalization History Rehab-PT 09/2018 Goals Section No Information Health Concerns No Information MEDICAL EQUIPMENT No Information MENTAL STATUS No Information FUNCTIONAL STATUS No Information ASSESSMENTS Encounter Date Diagnosis Assessment Notes Treatment Notes Treatm ent Clinical Notes Feb, Neuropathy (ICD-10 - G62.9) Feb, Coronary artery disease, ang steven presence unspecified, unspecified vessel or lesion type, unspecified whether [place] or transplanted heart (ICD-10 - I25.10) Feb, Essential hypertension (ICD-10 - I10) PLAN OF TREATMENT Medication Medication Name Sig Start Date Stop Date Carvedilol 6.25 MG 1 tablet Orally twice a day for 90 day(s) Acetaminophen 325 MG 1-2 capsules as needed Orally every 6 hrs Plavix 75 MG 1 tablet Orally Once a day for 90 days Fosamax 70 MG 1 tablet Orally weekly for 30 day(s) EQL Vitamin D3 2000 UNIT 1 capsule Orally Once a day for 90 days Gabapentin 100 MG 2 capsule Orally bid for 90 days Aspir-81 81 MG 1 tablet Orally Once a day for 90 days Tums 500 MG 1 tablet Orally twice daily AmLODIPine Besylate 10 MG 1 tablet Orally Once a day Atorvastatin Calcium 10 MG 1 tablet Orally Once a day for 90 day s Next Appt Details Provider Name:Aleida Hillman, 05-10 01:00:00 PM, [address] [place], [address], Provider Name:Moris Alonzo, 2020-05-31 09:15:00 AM, [address] [place], [address], Insurance Providers Payer Name Payer Address Payer Phone Insured Name Patient Relati onship to Insured Coverage Start Date Coverage End Date [facility] [address] [facility] [phone] [place] self MEDICAID [employer] [address] [facility] [id number] [place] self
--- OUTSIDE RECORDS SUMMARY | 2020-04-04 14:10 | CCD ---
Author Author [facility] Organization [facility] Address Unknown Phone Unavailable Care Team Providers Care Tax Services Intern Name Role Phone Aleida Hillman Unavailable PROBLEMS Type Condition ICD9-CM Code TYS58-PA Code Onset Dates Condition S tatus SNOMED Code Notes Problem Need for hepatitis C screening test Z11.59 Acti ve 453779356 Problem Leg cramps R25.2 Active 096740102 Problem Arthralgia of left shoulder region M25.512 Activ e 090959214 Problem Vitamin D deficiency E55.9 Active 50607506 Problem History of Nelly-en-Y gastric bypass Z98.84 Acti ve 820811976 Problem Leg length discrepancy M21.70 Active 01874859 Problem Constipation, unspecified constipation type K59.00 Active 62274334 Problem Neuropathy G62.9 Active 461958957 Problem Vitamin B12 deficiency E53.8 Active 858036937 Problem Weight loss R63.4 Active 56656400 Problem Hydronephrosis with urinary obstruction due to renal calcu cari N13.2 Active 966852827 Problem Encephalopathy G93.40 Active 91353498 Problem Osteoporosis M81.0 Active 81586929 Problem Bandemia D72.825 Active 552530458 Problem Age-related incipient cataract of both eyes H25.09 3 Active 371674427 Problem Iron deficiency anemia secondary to inadequate d ietary iron intake D50.8 Active 449006160 Problem Essential hypertension I10 Active 74128092 Problem Other chronic pain G89.29 Active 02745381 Problem Tobacco use Z72.0 Active 372901332 Problem Bilateral hearing loss, unspecified hearing loss type H91.93 Active 87910476 Problem S/p left hip fracture Z87.81 Active 789698897 Problem Localized osteoarthritis of hip M16.9 Active 185280653 Problem Breast cancer screening Z12.39 Active 70010777 6 Problem Ureterolithiasis N20.1 Active 70732484 Problem Coronary artery disease, ang steven presence unspecified, unspecified vessel or lesion type, unspecified whether [place] or transplanted heart I25.10 Active 63857134 Problem History of ID (myocardial infarction) I25.2 Ac tive 089305035 Problem PUD (peptic ulcer disease) K27.9 Active 96903 003 Problem Stenosis of left carotid artery I65.22 Active 514397497402858 Problem Renal insufficiency N28.9 Active 994429189 Problem Bilateral carotid artery stenosis I65.23 Active 006588625 Problem 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 1 Active 696615607 Problem Mild cognitive impairment G31.84 Active 868722 002 Problem Stenosis of both vertebral arteries I65.03 Acti ve 96347443 Problem Gastroesophageal reflux disease without esophagitis K21.9 Active 028019284 Problem Sjogren's syndrome with keratoconjunctivitis sicca M35.01 Active 53290358 Problem Peripheral polyneuropathy G62.9 Active 039973 00 ALLERGIES No Known Allergies ENCOUNTERS from 1950 to 2020-01-08 Encounter Location Date Provider Diagnosis [address] [address] 16 Dec, 2019 Aleida Swatsworth Cough R05 ; Localized osteoarthritis of hip M16.9 ; Ureterolithiasis N20.1 ; Coronary artery disease, angina presence unspecified, unspecified vessel or lesion type, unspecified whether [place] or transplanted heart I25.10 ; Neuropathy G62.9 ; Debilitated R53.81 ; Vitamin D deficiency E55.9 ; Stenosis of left carotid artery I65.22 ; Essential hypertension I10 ; Vitamin B12 deficiency E53.8 ; Osteoporosis M81.0 ; Weight loss R63.4 ; PUD (peptic ulcer disease) K27.9 ; Renal insufficiency N28.9 ; Breast cancer screening Z12.39 and Encounter for immunization Z23 IMMUNIZATIONS Vaccine Route Administration Date Status Vitamin [...] REASON FOR REFERRAL No Information VITAL SIGNS Weight 124.2 lbs Dec, Height 66 in Dec, BMI 20.04 kg/m2 Dec, Heart Rate 86 /min Dec, Respiratory Rate 18 /min Dec, Temperature 98.6 degrees Fahrenheit Dec, Oximetry 98% RA Dec, Blood pressure systolic 130 mm Hg Dec, Blood pressure diastolic 80 mm Hg Dec, MEDICATIONS Medication SIG (Take, Route, Frequency, Duration) Start Date En d Date Status Fosamax 70 MG 1 tablet Orally weekly for 30 day(s) Active Atorvastatin Calcium 10 MG 1 tablet Orally Once a day for 90 days Active EQL Vitamin D3 2000 UNIT 1 capsule Orally Once a day for 90 days Active Carvedilol 6.25 MG 1 tablet Orally twice a day Active Gabapentin 100 MG 2 capsule Orally bid for 90 days Active Plavix 75 MG 1 tablet Orally Once a day for 90 days Active Tums 500 MG 1 tablet Orally twice daily Active Acetaminophen 325 MG 1-2 capsules as needed Orally every 6 hrs Active Aspir-81 81 MG 1 tablet Orally Once a day for 90 days Active AmLODIPine Besylate 10 MG 1 tablet Orally Once a day Active PROCEDURES Procedure Date Ordered Result Body Site Immunization: Flublok Quadrivalent (18 years & older) 0.5mL IM (Influenza) 2020-01-05 N/A RESULTS Component Value Reference Range CBC with Differential Reviewed date:01/08/2020 10:43:03 Interpretation: Performing Lab:[facility] LABORATORY [address] [address] , ,[place] [address] WHITE BLOOD COUNT 8.3 4.0-10.0 RED BLOOD COUNT 4.48 4.00-5.40 HEMOGLOBIN 12.8 12.0-15.5 HEMATOCRIT 40.5 36.0-47.0 MEAN CORPUSCULAR VOLUME 90.4 80.0-96.0 MEAN CORPUSCULAR HEMOGLOBIN 28.6 27.0-33.0 MEAN CORPUSCULAR HGB CONC 31.6 32.0-36.5 RED CELL DISTRIBUTION WIDTH 13.3 11.5-14.5 PLATELET COUNT, AUTOMATED 350 150-450 NEUTROPHILS % 66.4 36.0-66.0 LYMPH % 24.9 24.0-44.0 MONO % 6.5 0.0-5.0 EOS % 1.1 0.0-3.0 BASO % 0.7 0.0-1.0 NEUTROPHILS # 5.5 1.5-8.5 LYMPH # 2.1 1.5-5.0 MONO # 0.5 0.0-0.8 EOS # 0.1 0.0-0.5 BASO # 0.1 0.0-0.2 Comprehensive Metabolic Profile (CMP) Reviewed date:01/08/2020 10:43:28 Interpretation: Performing Lab:[facility] LABORATORY [address] [address] , ,[place] [address] GLUCOSE, FASTING 91 70-100 BLOOD UREA NITROGEN 22 7-18 CREATININE FOR GFR 0.84 0.55-1.30 GLOMERULAR FILTRATION RATE > 60.0 >39 SODIUM LEVEL 141 136-145 POTASSIUM SERUM 4.3 3.5-5.1 CHLORIDE LEVEL 110 98-107 CARBON DIOXIDE LEVEL 24 21-32 CALCIUM LEVEL 9.7 8.8-10.2 AST/SGOT 10 7-37 ALT/SGPT 14 12-78 ALKALINE PHOSPHATASE 183 45-117 BILIRUBIN,TOTAL 0.4 0.2-1.0 TOTAL PROTEIN 7.2 6.4-8.2 ALBUMIN 3.5 3.2-5.2 ALBUMIN/GLOBULIN RATIO 0.9 1.2-2.2 PTH INTACT Reviewed date:01/08/2020 10:42:18 Interpretation: Performing Lab:[facility], [facility] LABORATORY [address] [address] , ,[place] [address] PTH INTACT 53.3 18.5-88.0 VITAMIN D 25-HYDROXY Reviewed date:01/08/2020 10:42:39 Interpretation: Performing Lab:[facility], [facility] LABORATORY [address] [address] , ,[place] [address] TOTAL 25(OH) VITAMIN D 39.8 30.0-100.0 VITAMIN B12 LEVEL Reviewed date:01/08/2020 10:43:52 Interpretation: Performing Lab:[facility] LABORATORY [address] [address] , ,[place] [address] VITAMIN B12 LEVEL 949 247-085 REASON FOR VISIT FOLLOW UP MEDICAL (GENERAL) HISTORY Type Description Date Medical History hypertension-LAE 38, mode TR, LVEF 65% b y 03/2016 TTE-Antecol Medical History Hyperlipidemia Medical History ho NSTEMI 11/2015 c Left hip fracture, SB Intusseception-03/2016 normal DA stress SPECT perfusion-[facility] Medical History L femoral head fracture, ORIF 12/05 above @ [facility] Medical History PUD-resulted in Kerwin-en-Y prior to ID 2 008 Medical History GERD Medical History Nephrolithiasis Medical History UTI, metabolic acidosis, Alt ered MS, TIA, KUSUM c hydronephrosis resolved discharged 03/10- from [facility] Medical History Osteoporosis 03/04/2016 Dexa f/u 2Y Medical History Hyperextension L knee went to ED 07/2015 Medical History Vitamin b12 deficiency on injections Surgical History Colon Resection Surgical History Kerwin-en- Y in [facility]; subtotal partial gas trectomy 2007 Surgical History SBO, Intusseception @ [facility], 2016 Hospitalization History surgery related Hospitalization History child Hospitalization History hypokalemia 01/20 Hospitalization History dizzy,bp 03/10-03/14 Hospitalization History Nelly-en- Y in [facility] 2007 Hospitalization History Rehab-PT 09/2018 Goals Section No Information Health Concerns No Information MEDICAL EQUIPMENT No Information MENTAL STATUS No Information FUNCTIONAL STATUS No Information ASSESSMENTS Encounter Date Diagnosis Notes 16 Dec, 2019 Debilitated (ICD-10 - R53.81) Dec, Neuropathy (ICD-10 - G62.9) Dec, Encounter for immunization (ICD-10 - Z23 ) 16 Dec, 2019 Stenosis of left carotid artery (ICD-10 - I65.22) Dec, Vitamin D deficiency (ICD-10 - E55.9) Dec, Localized osteoarthritis of hip (ICD-10 - M16.9) Dec, PUD (peptic ulcer disease) (ICD-10 - K27 .9) Dec, Cough (ICD-10 - R05) Dec, Weight loss (ICD-10 - R63.4) Dec, Coronary artery disease, ang steven presence unspecified, unspecified vessel or lesion type, unspecified whether [place] or transplanted heart (ICD-10 - I25.10) Dec, Breast cancer screening (ICD-10 - Z12.39 ) Dec, Ureterolithiasis (ICD-10 - N20.1) Dec, Renal insufficiency (ICD-10 - N28.9) Dec, Essential hypertension (ICD-10 - I10) Dec, Osteoporosis (ICD-10 - M81.0) Dec, Vitamin B12 deficiency (ICD-10 - E53.8) PLAN OF TREATMENT Medication Medication Name Sig Start Date Stop Date Fosamax 70 MG 1 tablet Orally weekly for 30 day(s) Acetaminophen 325 MG 1-2 capsules as needed Orally every 6 hrs Aspir-81 81 MG 1 tablet Orally Once a day for 90 days Tums 500 MG 1 tablet Orally twice daily EQL Vitamin D3 2000 UNIT 1 capsule Orally Once a day for 90 days Atorvastatin Calcium 10 MG 1 tablet Orally Once a day for 90 day s Carvedilol 6.25 MG 1 tablet Orally twice a day Gabapentin 100 MG 2 capsule Orally bid for 90 days Plavix 75 MG 1 tablet Orally Once a day for 90 days AmLODIPine Besylate 10 MG 1 tablet Orally Once a day Treatment Notes Assessment Notes Clinical Notes Renal insufficiency Nl Renal function Cough Patient Educated with: FLU V accine, Inactivated [id number] (FLU Vaccine, Inactivated [id number].pdf) may use mucinex 3-5 Days max, increase w ater intake Favor 2 cilia working again off cig. all clear PUD (peptic ulcer disease) Denies furthe r gerd symps. Localized osteoarthritis of hip Referral to [place] again had nuclear stress test & cardiol. cleared for k. stone procedure, so will now send again to [place] [facility] Ureterolithiasis Patient Educated with: [email or web address].pdf (PCV13. pdf) removed stone Coronary artery disease, angina presence unspecified, unspecified vessel or lesion type, unspecified whether [place] or transplanted heart Denies anginaH/o ID in 2016 see PMH Neuropathy Cont.s c hand & feet pain cont. gabap. Debilitated Currently in [employer]/caregiver-boyfriend was lifting her onto the scales today to be weighed. Uses walker at home as well. Has done PT prior to discharge from [facility], none in awhile. Vitamin D deficiency Will recheck in [facility] Vit. D 39, pth i 55 Weight loss wt. is up againHer C a 19 went up to 55 Osteoporosis Needs f/u Dexa Stenosis of left carotid artery cTIA 70% s surgery & asymp. on plavix & asa Essential hypertension controlled s orth ostasis Vitamin B12 deficiency HHN doing monthly inj. 19954/2019 > b12 [id number]/2017 65122/2018 371 Treatment Notes Test Name Order Date Chest X-ray PA and lateral 2020-01-08 [facility] Edwin Screening Bilateral (Ultrasound if Indicated ) (3D Mammo) 2020-01-08 Dexa, Full Body 2020-01-08 Next Appt Details 3-4 Months c SS Reason: Provider Name:Aleida Hillman, 05-10 01:00:00 PM, [address] [place], [address], Provider Name:Moris Alonzo, 2020-05-31 09:15:00 AM, [address], [place], [address], Insurance Providers Payer Name Payer Address Payer Phone Insured Name Patient Relati onship to Insured Coverage Start Date Coverage End Date [facility] [address] [facility] [phone] [place] MED[place] [employer] [address] [facility] [id number] [place] self
--- OUTSIDE RECORDS SUMMARY | 2020-04-04 14:10 | CCD ---
Author Author [facility] Organization [facility] Address Unknown Phone Unavailable Care Team Providers Care Sales Branch Manager Name Role Phone Aleida Hillman Unavailable PROBLEMS Type Condition ICD9-CM Code GXH17-GD Code Onset Dates Condition S tatus SNOMED Code Notes Problem Need for hepatitis C screening test Z11.59 Acti ve 661597773 Problem Leg cramps R25.2 Active 873054797 Problem Arthralgia of left shoulder region M25.512 Activ e 292448377 Problem Vitamin D deficiency E55.9 Active 64792525 Problem History of Nelly-en-Y gastric bypass Z98.84 Acti ve 815749445 Problem Leg length discrepancy M21.70 Active 11938492 Problem Constipation, unspecified constipation type K59.00 Active 18096103 Problem Neuropathy G62.9 Active 293266334 Problem Vitamin B12 deficiency E53.8 Active 631728066 Problem Weight loss R63.4 Active 99913819 Problem Hydronephrosis with urinary obstruction due to renal calcu cari N13.2 Active 775464355 Problem Encephalopathy G93.40 Active 31423466 Problem Osteoporosis M81.0 Active 78894659 Problem Bandemia D72.825 Active 652333330 Problem Age-related incipient cataract of both eyes H25.09 3 Active 751642537 Problem Iron deficiency anemia secondary to inadequate d ietary iron intake D50.8 Active 200530874 Problem Essential hypertension I10 Active 75547349 Problem Other chronic pain G89.29 Active 99449189 Problem Tobacco use Z72.0 Active 939301187 Problem Bilateral hearing loss, unspecified hearing loss type H91.93 Active 00604082 Problem S/p left hip fracture Z87.81 Active 068557174 Problem Localized osteoarthritis of hip M16.9 Active 274270683 Problem Breast cancer screening Z12.39 Active 73233360 6 Problem Ureterolithiasis N20.1 Active 30223413 Problem Coronary artery disease, ang steven presence unspecified, unspecified vessel or lesion type, unspecified whether [place] or transplanted heart I25.10 Active 37552764 Problem History of ID (myocardial infarction) I25.2 Ac tive 184140259 Problem PUD (peptic ulcer disease) K27.9 Active 06687 003 Problem Stenosis of left carotid artery I65.22 Active 876391820755160 Problem Renal insufficiency N28.9 Active 437768021 Problem Bilateral carotid artery stenosis I65.23 Active 267492166 Problem 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 1 Active 804919966 Problem Mild cognitive impairment G31.84 Active 730894 002 Problem Stenosis of both vertebral arteries I65.03 Acti ve 64466592 Problem Gastroesophageal reflux disease without esophagitis K21.9 Active 604203410 Problem Sjogren's syndrome with keratoconjunctivitis sicca M35.01 Active 30634695 Problem Peripheral polyneuropathy G62.9 Active 884811 00 ALLERGIES No Known Allergies ENCOUNTERS from 1950 to 2020-04-01 Encounter Location Date Provider Diagnosis [address] [address] 07 Mar, 2020 Aleida Swatsworth Neuropathy G62.9 ; Osteoporosis M81.0 an d Essential hypertension I10 IMMUNIZATIONS Vaccine Route Administration [...] Information RESULTS No Results REASON FOR VISIT Med clarifiaction MEDICAL (GENERAL) HISTORY Type Description Date Medical History hypertension-LAE 38, mode TR, LVEF 65% b y 03/2016 TTE-[facility]te[facility] Medical History Hyperlipidemia Medical History ho NSTEMI 11/2015 c Left hip fracture, SB Intusseception-03/2016 normal DA stress SPECT perfusion-[facility] Medical History L femoral head fracture, ORIF 12/05 above @ [facility] Medical History PUD-resulted in Kerwin-en-Y prior to ID 2 008 Medical History GERD Medical History Nephrolithiasis Medical History UTI, metabolic acidosis, Alt ered MS, TIA, KUSUM c hydronephrosis resolved discharged 03/10- from [facility] Medical History Osteoporosis 03/04/2016 Dexa f/u 2Y Medical History Hyperextension L knee went to ED 07/2015 Medical History Vitamin b12 deficiency on injections Surgical History Colon Resection Surgical History Kerwin-en- Y in [facility]; subtotal partial gas trectomy 2007 Surgical History SBO, Intusseception @ [facility], 2016 Hospitalization History surgery related Hospitalization History child Hospitalization History hypokalemia 01/20 Hospitalization History dizzy,bp 03/10-03/14 Hospitalization History Nelly-en- Y in [facility] 2007 Hospitalization History Rehab-PT 09/2018 Goals Section No Information Health Concerns No Information MEDICAL EQUIPMENT No Information MENTAL STATUS No Information FUNCTIONAL STATUS No Information ASSESSMENTS Encounter Date Diagnosis Assessment Notes Treatment Notes Treatm ent Clinical Notes Mar, Neuropathy (ICD-10 - G62.9) Mar, Osteoporosis (ICD-10 - M81.0) Mar, Essential hypertension (ICD-10 - I10) PLAN OF [...] Provider Name:Aleida Hillman, 04-25 02:30:00 PM, [address] [place], [address], Provider Name:Moris Alonzo, 2020-05-31 09:15:00 AM, [address] [place], [address], Insurance Providers Payer Name Payer Address Payer Phone Insured Name Patient Relati onship to Insured Coverage Start Date Coverage End Date MEDICAID [employer] [address] [facility] [address] [place] [facility] [address] [facility] [id number] [place]
--- OUTSIDE RECORDS SUMMARY | 2020-04-04 14:10 | CCD ---
Author Author [facility] Organization [facility] Address Unknown Phone Unavailable Care Team Providers Care Director Of Student Aid Name Role Phone Aleida Hillman Unavailable PROBLEMS Type Condition ICD9-CM Code PHO69-JO Code Onset Dates Condition S tatus SNOMED Code Notes Problem Need for hepatitis C screening test Z11.59 Acti ve 887442152 Problem Leg cramps R25.2 Active 010216134 Problem Arthralgia of left shoulder region M25.512 Activ e 579844202 Problem Vitamin D deficiency E55.9 Active 65483491 Problem History of Nelly-en-Y gastric bypass Z98.84 Acti ve 741035387 Problem Leg length discrepancy M21.70 Active 41979900 Problem Constipation, unspecified constipation type K59.00 Active 22637213 Problem Neuropathy G62.9 Active 559006657 Problem Vitamin B12 deficiency E53.8 Active 237206466 Problem Weight loss R63.4 Active 29182196 Problem Hydronephrosis with urinary obstruction due to renal calcu cari N13.2 Active 801340494 Problem Encephalopathy G93.40 Active 47808466 Problem Osteoporosis M81.0 Active 51017663 Problem Bandemia D72.825 Active 778578691 Problem Age-related incipient cataract of both eyes H25.09 3 Active 169132795 Problem Iron deficiency anemia secondary to inadequate d ietary iron intake D50.8 Active 153044083 Problem Essential hypertension I10 Active 88118778 Problem Other chronic pain G89.29 Active 84423254 Problem Tobacco use Z72.0 Active 465027847 Problem Bilateral hearing loss, unspecified hearing loss type H91.93 Active 86083017 Problem S/p left hip fracture Z87.81 Active 049416175 Problem Localized osteoarthritis of hip M16.9 Active 275577703 Problem Breast cancer screening Z12.39 Active 86276427 6 Problem Ureterolithiasis N20.1 Active 86624505 Problem Coronary artery disease, ang steven presence unspecified, unspecified vessel or lesion type, unspecified whether [place] or transplanted heart I25.10 Active 04167759 Problem History of ME (myocardial infarction) I25.2 Ac tive 805778295 Problem PUD (peptic ulcer disease) K27.9 Active 31016 003 Problem Stenosis of left carotid artery I65.22 Active 488891335935736 Problem Renal insufficiency N28.9 Active 130389580 Problem Bilateral carotid artery stenosis I65.23 Active 505175912 Problem 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 1 Active 832992365 Problem Mild cognitive impairment G31.84 Active 029649 002 Problem Stenosis of both vertebral arteries I65.03 Acti ve 95899780 Problem Gastroesophageal reflux disease without esophagitis K21.9 Active 007400564 Problem Sjogren's syndrome with keratoconjunctivitis sicca M35.01 Active 37264739 Problem Peripheral polyneuropathy G62.9 Active 555592 00 ALLERGIES No Known Allergies ENCOUNTERS from 1950 to 2020-01-18 Encounter Location Date Provider Diagnosis [address] [address] Dec, Aleida Hillman IMMUNIZATIONS Vaccine Route Administration Date Status Vitamin B-12 1000mcg/1mL (Cyanocobalamin) IM Intramuscular Dec 212018 Administered Influenza (18 yrs & older) Flublok IM Intramuscular Feb 09, 2018 Administered Influenza (18 yrs & older) Flublok IM Intramuscular Feb 07, 2019 Administered Influenza (18 yrs & older) Flublok IM Intramuscular Jan 05, 2020 Administered Vitamin B-12 1000mcg/1mL (Cyanocobalamin) IM Intramuscular June 06, 2018 Administered Vitamin B-12 1000mcg/1mL (Cyanocobalamin) IM Intramuscular July 07, 2018 Administered Vitamin B-12 1000mcg/1mL (Cyanocobalamin) IM Intramuscular October 14, 2018 Administered Vitamin B-12 1000mcg/1mL (Cyanocobalamin) SC Subcutaneous Oct Administered Pneumococcal 0.5mL (Prevnar 13) IM Intramuscular [...] B-12 1000mcg/1mL (Cyanocobalamin) IM Intramuscular Jan Administered Vitamin B-12 1000mcg/1mL (Cyanocobalamin) IM Intramuscular Feb 202017 Administered Vitamin B-12 1000mcg/1mL (Cyanocobalamin) IM Intramuscular Mar 232018 Administered SOCIAL HISTORY Tobacco Use: Social History [...] tablet Orally Once a day Active PROCEDURES No Information RESULTS No Results REASON FOR VISIT No Information MEDICAL (GENERAL) HISTORY Type Description Date Medical History hypertension-LAE 38, mode TR, LVEF 65% b y 03/2016 TTE-Antecol Medical History Hyperlipidemia Medical History ho NSTEMI 11/2015 c Left hip fracture, SB Intusseception-03/2016 normal DA stress SPECT perfusion-[facility] Medical History L femoral head fracture, ORIF 12/05 above @ [facility] Medical History PUD-resulted in Kerwin-en-Y prior to [place] 2 008 Medical History GERD Medical History Nephrolithiasis Medical History UTI, metabolic acidosis, Alt ered MS, TIA, KUSUM c hydronephrosis resolved discharged 03/10- from [facility] Medical History Osteoporosis 03/04/2016 Dexa f/u 2Y Medical History Hyperextension L knee went to ED 07/2015 Medical History Vitamin b12 deficiency on injections Surgical History Colon Resection Surgical History Kerwin-en- Y in [facility]; subtotal partial gas trectomy 2007 Surgical History SBO, Intusseception @ [facility], 2016 Hospitalization History surgery related Hospitalization History child Hospitalization History hypokalemia 01/20 Hospitalization History dizzy,bp 03/10-03/14 Hospitalization History Nelly-en- Y in [facility] 2007 Hospitalization History Rehab-PT 09/2018 Goals Section [...] MG 1 tablet Orally Once a day Next Appt Details Provider Name:Aleida Hillman, 05-10 01:00:00 PM, [address] [place], [address], Provider Name:Moris Alonzo, 2020-05-31 09:15:00 AM, [address] [place], [address], Insurance Providers Payer Name Payer Address Payer Phone Insured Name Patient Relati onship to Insured Coverage Start Date Coverage End Date MEDICAID [employer] [address] [facility] [id number] [place] [facility] [address] [facility] [phone] [place]
--- OUTSIDE RECORDS SUMMARY | 2020-04-04 14:10 | CCD ---
Author Author [facility] Organization [facility] Address Unknown Phone Unavailable Care Team Providers Care Police Specialist Name Role Phone Aleida Hillman Unavailable PROBLEMS Type Condition ICD9-CM Code DSB11-NS Code Onset Dates Condition S tatus SNOMED Code Notes Problem Need for hepatitis C screening test Z11.59 Acti ve 528556612 Problem Leg cramps R25.2 Active 292719235 Problem Arthralgia of left shoulder region M25.512 Activ e 330621532 Problem Vitamin D deficiency E55.9 Active 11573056 Problem History of Nelly-en-Y gastric bypass Z98.84 Acti ve 381533918 Problem Leg length discrepancy M21.70 Active 49218282 Problem Constipation, unspecified constipation type K59.00 Active 00641811 Problem Neuropathy G62.9 Active 421092872 Problem Vitamin B12 deficiency E53.8 Active 895094061 Problem Weight loss R63.4 Active 00620233 Problem Hydronephrosis with urinary obstruction due to renal calcu cari N13.2 Active 703403770 Problem Encephalopathy G93.40 Active 00346906 Problem Osteoporosis M81.0 Active 89793593 Problem Bandemia D72.825 Active 445453175 Problem Age-related incipient cataract of both eyes H25.09 3 Active 133266979 Problem Iron deficiency anemia secondary to inadequate d ietary iron intake D50.8 Active 565678781 Problem Essential hypertension I10 Active 75481969 Problem Other chronic pain G89.29 Active 62765848 Problem Tobacco use Z72.0 Active 098223574 Problem Bilateral hearing loss, unspecified hearing loss type H91.93 Active 80567310 Problem S/p left hip fracture Z87.81 Active 967429757 Problem Localized osteoarthritis of hip M16.9 Active 398044467 Problem Breast cancer screening Z12.39 Active 24129611 6 Problem Ureterolithiasis N20.1 Active 11446225 Problem Coronary artery disease, ang setven presence unspecified, unspecified vessel or lesion type, unspecified whether [place] or transplanted heart I25.10 Active 95165416 Problem History of ID (myocardial infarction) I25.2 Ac tive 994192792 Problem PUD (peptic ulcer disease) K27.9 Active 08940 003 Problem Stenosis of left carotid artery I65.22 Active 017681945742441 Problem Renal insufficiency N28.9 Active 358027550 Problem Bilateral carotid artery stenosis I65.23 Active 116401581 Problem 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 1 Active 645624526 Problem Mild cognitive impairment G31.84 Active 824983 002 Problem Stenosis of both vertebral arteries I65.03 Acti ve 71546731 Problem Gastroesophageal reflux disease without esophagitis K21.9 Active 907821457 Problem Sjogren's syndrome with keratoconjunctivitis sicca M35.01 Active 41689468 Problem Peripheral polyneuropathy G62.9 Active 199395 00 ALLERGIES No Known Allergies ENCOUNTERS from 1950 to 2020-01-08 Encounter Location Date Provider Diagnosis [address] [address] Dec, Aleida Hillman Coronary artery disease, angina presence unspecified, unspecified vessel or lesion type, unspecified whether [place] or transplanted heart I25.10 IMMUNIZATIONS Vaccine Route Administration Date Status Vitamin [...] Information RESULTS No Results REASON FOR VISIT refill MEDICAL (GENERAL) HISTORY Type Description Date Medical History hypertension-LAE 36, mode TR, LVEF 65% b y 03/2016 TTE-[facility]tecol Medical History Hyperlipidemia Medical History ho NSTEMI 11/2015 c Left hip fracture, SB Intusseception-03/2016 normal DA stress SPECT perfusion-[facility] Medical History L femoral head fracture, ORIF 12/05 above @ [facility] Medical History PUD-resulted in Kerwin-en-Y prior to ID 2 008 Medical History GERD Medical History Nephrolithiasis Medical History UTI, metabolic acidosis, Alt ered MS, TIA, KUSUM c hydronephrosis resolved discharged 03/10- from [facility] Medical History Osteoporosis 03/04/2016 Dexa f/u 2Y Medical History Hyperextension L knee went to ED 07/2015 Medical History Vitamin b12 deficiency on injections Surgical History Colon Resection Surgical History Kerwin-en- Y in [facility]; subtotal partial gas trectomy 2007 Surgical History SBO, Intusseception @ [facility], 2016 Hospitalization History surgery related Hospitalization History child Hospitalization History hypokalemia 01/20 Hospitalization History dizzy,bp 03/10-03/14 Hospitalization History Nelly-en- Y in [facility] 2007 Hospitalization History Rehab-PT 09/2018 Goals Section No Information Health Concerns No Information MEDICAL EQUIPMENT No Information MENTAL STATUS No Information FUNCTIONAL STATUS No Information ASSESSMENTS Encounter Date Diagnosis Notes Dec, Coronary artery disease, ang steven presence unspecified, unspecified vessel or lesion type, unspecified whether [place] or transplanted heart (ICD-10 - I25.10) PLAN OF TREATMENT Medication Medication Name Sig [...] Provider Name:Aleida Hillman, 05-10 01:00:00 PM, [address] [place], [address], Provider Name:Moris Alonzo, 2020-05-31 09:15:00 AM, [address] [place], [address], Insurance Providers Payer Name Payer Address Payer Phone Insured Name Patient Relati onship to Insured Coverage Start Date Coverage End Date MEDICAID [employer] [address] [facility] [id number] [place] [facility] [id number] [facility] [id number] [place]
[2020-04-04 14:11] LABS: BASO # 0.1 10^3/uL (0.0-0.2); BASO % 0.7 % (0.0-1.0); EOS # 0.1 10^3/uL (0.0-0.5); EOS % 0.9 % (0.0-3.0); HEMATOCRIT 38.9 % (36.0-47.0); HEMOGLOBIN 12.6 g/dl (12.0-15.5); LYMPH # 2.4 10^3/uL (1.5-5.0); LYMPH % 27.8 % (24.0-44.0); MEAN CORPUSCULAR HEMOGLOBIN 29.9 pg (27.0-33.0); MEAN CORPUSCULAR HGB CONC 32.4 g/dl (32.0-36.5); MEAN CORPUSCULAR VOLUME 92.2 fl (80.0-96.0); MONO # 0.7 10^3/uL (0.0-0.8); MONO % 8.6 % (0.0-5.0); NEUTROPHILS # 5.2 10^3/uL (1.5-8.5); NEUTROPHILS % 61.6 % (36.0-66.0); PLATELET COUNT, AUTOMATED 295 10^3/uL (150-450); RED BLOOD COUNT 4.22 10^6/uL (4.00-5.40); WHITE BLOOD COUNT 8.5 10^3/uL (4.0-10.0)
--- OUTSIDE RECORDS SUMMARY | 2020-04-04 14:11 | CCD ---
Author Author [facility] Organization [facility] Address Unknown Phone Unavailable Care Team Providers Care Statistical Methods Teacher Name Role Phone NRI, 1024 Unavailable Unavailable Chantilly, N Tyler DENSITOMETRIST Unavailable Unavailable Ciara, N Tyler DENSITOMETRIST Unavailable Unavailable Chantilly, N Tyler DENSITOMETRIST Unavailable Unavailable Chantilly, N Tyler DENSITOMETRIST Unavailable Unavailable Chantilly, N Tyler DENSITOMETRIST Unavailable Unavailable Ciara, N Tyler DENSITOMETRIST Unavailable Unavailable Chantilly, N Tyler DENSITOMETRIST Unavailable Unavailable Chantilly, N Tyler DENSITOMETRIST Unavailable Unavailable Ciara, N Tyler DENSITOMETRIST Unavailable Unavailable Ciara, N Tyler DENSITOMETRIST Unavailable Unavailable Chantilly, N Tyler DENSITOMETRIST Unavailable Unavailable Ciara, N Tyler DENSITOMETRIST Unavailable Unavailable Chantilly, N Tyler DENSITOMETRIST Unavailable Unavailable Ciara, N Tyler DENSITOMETRIST Unavailable Unavailable Ciara, N Tyler DENSITOMETRIST Unavailable Unavailable Ciara, N Tyler DENSITOMETRIST Unavailable Unavailable Chantilly, N Tyler DENSITOMETRIST Unavailable Unavailable Ciara, N Tyler DENSITOMETRIST Unavailable Unavailable Chantilly, N Tyler DENSITOMETRIST Unavailable Unavailable Ciara, N Tyler DENSITOMETRIST Unavailable Unavailable Chantilly, N Tyler DENSITOMETRIST Unavailable Unavailable Chantilly, N Tyler DENSITOMETRIST Unavailable Unavailable Chantilly, N Tyler DENSITOMETRIST Unavailable Unavailable Chantilly, N Tyler DENSITOMETRIST Unavailable Unavailable Chantilly, N Tyler DENSITOMETRIST Unavailable Unavailable Chantilly, N Tyler DENSITOMETRIST Unavailable Unavailable Chantilly, N Tyler DENSITOMETRIST Unavailable Unavailable Chantilly, N Tyler DENSITOMETRIST Unavailable Unavailable Ciara, N Tyler DENSITOMETRIST Unavailable Unavailable Chantilly, N Tyler DENSITOMETRIST Unavailable Unavailable Re-disclosure Warning The records that you are about to access may contain information from federally-assisted alcohol or drug abuse programs. If such information is present, then the following federally mandated warning applies: This information has been disclosed to you from records protected by federal confidentiality rules (42 CFR part 2). The federal rules prohibit you from making any further disclosure of this information unless further disclosure is expressly permitted by the written consent of the person to whom it pertains or as otherwise permitted by 42 CFR part 2. A general authorization for the release of medical or other information is NOT sufficient for this purpose. The Federal rules restrict any use of the information to criminally investigate or prosecute any alcohol or drug abuse patient.The records that you are about to access may contain highly sensitive health information, the redisclosure of which is protected by Article 27-F of the [facility] Public Health law. If you continue you may have access to information: Regarding HIV / AIDS; Provided by facilities licensed or operated by the [facility] Office of Mental Health; or Provided by the [facility] Office for People With Developmental Disabilities. If such information is present, then the following [facility] mandated warning applies: This information has been disclosed to you from confidential records which are protected by state law. State law prohibits you from making any further disclosure of this information without the specific written consent of the person to whom it pertains, or as otherwise permitted by law. Any unauthorized further disclosure in violation of state law may result in a fine or fci sentence or both. A general authorization for the release of medical or other information is NOT sufficient authorization for further disc losure. Family History Family Member Name Family Member Gender Family Member Status Date o f Status Description Data Source(s) Unknown Unknown Problem MEDENT ([facility]) Unknown Unknown Problem MEDENT ([facility]) Unknown Female Problem MEDENT ([facility]) Unknown Female Problem MEDENT ([facility]) Encounters Encounter Providers Location Date Indications Data Source(s ) [place] [address] [facility] [address] 03/29/2020 12:00:00 AM EST eCW1 ([facility]) [place] [address] [facility] [address] 03/28/2020 12:00:00 AM EST eCW1 ([facility]) [place] [address] [facility] [address] 03/25/2020 12:00:00 AM EST [facility] [place] [address] [facility] [address] 03/01/2020 12:00:00 AM EST eCW1 [facility] Unknown [address] [facility] [address] 02/26/2020 12:00:00 AM EST eCW1 ([facility]) Unknown [address] [facility] [address] 01/17/2020 12:00:00 AM EDT [facility] [place] [address] [facility] [address] 01/08/2020 12:00:00 AM EDT [facility]CW1 [facility] Office Visit, Est Pt., Level 4 PC [address] [place] [address] 01/05/2020 12:00:00 AM EDT eCW1 ([facility]) Unknown [address] [facility] [address] 10/05/2019 12:00:00 AM EDT eCW1 ([facility]) [facility] [place] [address] [facility] [address] 08/29/2019 12:00:00 AM EDT eCW1 [facility]) Outpatient Referrer: Arcenio DE LA GARZA 08/01/2019 05:53:00 AM EDT [facility] [place] [address] [facility] [address] 06/20/2019 12:00:00 AM EDT [facility] Rheumatology [address] [place] [address] 06/07/2019 12:00:00 AM EDT [facility]CW1 [facility]) [facility] Urology [address] [facility] [place] [address] 06/02/2019 12:00:00 AM EDT [facility]CW1 [facility] [place] Urology Center [address] [place] [address] 06/02/2019 12:00:00 AM EDT [facility]CW1 [facility]) Outpatient Referrer: [facility] NRI 05/29/2019 11:32:00 AM EDT [facility] Outpatient Referrer: 1024 NRI 05/25/2019 01:40:00 PM EST [facility] Outpatient Referrer: 1024 NRI 05/23/2019 02:55:00 PM EST [facility] Urology [address] [facility] [address] 05/22/2019 12:00:00 AM EST [facility]CW1 [facility] Urology [address] [facility] [address] 05/22/2019 12:00:00 AM EST [facility]CW1 [facility]) [facility] Urology [address] [facility] [address] 05/22/2019 12:00:00 AM EST [facility]CW1 [facility] Urology [address] [facility] [address] 05/18/2019 12:00:00 AM EST eCW1 [facility] [place] [address] [facility] [address] 05/17/2019 12:00:00 AM EST [facility]CW1 [facility]) Outpatient Attender: Tyler DONAHUEP.[email or web address] 05/16/2019 12 :00:00 AM EST [facility] Outpatient Referrer: 1024 NRI 05/04/2019 01:23:00 PM EST [facility] Urology [address] [place] [address], [place] [address] 05/03/2019 12:00:00 AM EST eCW1 ([facility]) [facility] [address] [place] [address], [place] [address] 05/01/2019 12:00:00 AM EST eCW1 ([facility]) [facility] Urology [address] [place] [address], [place] [address] 04/19/2019 12:00:00 AM EST eCW1 ([facility]) [address] [address] 04/13/2019 12:00:00 AM EST eCW1 ([facility]) [address] [address] 04/13/2019 12:00:00 AM EST eCW1 ([facility]) [address] [address] 02/21/2019 12:00:00 AM EST eCW1 ([facility]) [address] [address] 02/14/2019 12:00:00 AM EST eCW1 ([facility]) [address] [address] 02/09/2019 12:00:00 AM EST eCW1 ([facility]) [address] [address] 02/07/2019 12:00:00 AM EST eCW1 ([facility]) Immunizations Vaccine Date Status Description Data Source(s) influenza, recombinant, quadrIvalent,injectable, prese rvative free 01/05/2020 12:51:00 PM EDT completed eCW1 ([facility]) influenza, recombinant, quadrIvalent,injectable, prese rvative free 01/05/2020 12:51:00 PM EDT completed eCW1 ([facility]) influenza, recombinant, quadrIvalent,injectable, prese rvative free 01/05/2020 12:51:00 PM EDT completed eCW1 ([facility]) influenza, recombinant, quadrIvalent,injectable, prese rvative free 01/05/2020 12:51:00 PM EDT completed eCW1 ([facility]) influenza, recombinant, quadrIvalent,injectable, prese rvative free 01/05/2020 12:51:00 PM EDT completed eCW1 ([facility]) influenza, recombinant, quadrIvalent,injectable, prese rvative free 01/05/2020 12:51:00 PM EDT completed eCW1 ([facility]) influenza, recombinant, quadrIvalent,injectable, prese rvative free 01/05/2020 12:51:00 PM EDT completed eCW1 ([facility]) influenza, recombinant, quadrIvalent,injectable, prese rvative free 01/05/2020 12:51:00 PM EDT completed eCW1 ([facility]) influenza, recombinant, quadrIvalent,injectable, prese rvative free 02/07/2019 01:25:00 PM EST completed eCW1 ([facility]) influenza, recombinant, quadrIvalent,injectable, prese rvative free 02/07/2019 01:25:00 PM EST completed eCW1 ([facility]) influenza, recombinant, quadrIvalent,injectable, prese rvative free 02/07/2019 01:25:00 PM EST completed eCW1 ([facility]) influenza, recombinant, quadrIvalent,injectable, prese rvative free 02/07/2019 01:25:00 PM EST completed eCW1 ([facility]) influenza, recombinant, quadrIvalent,injectable, prese rvative free 02/07/2019 01:25:00 PM EST completed eCW1 ([facility]) influenza, recombinant, quadrIvalent,injectable, prese rvative free 02/07/2019 01:25:00 PM EST completed eCW1 ([facility]) influenza, recombinant, quadrIvalent,injectable, prese rvative free 02/07/2019 01:25:00 PM EST completed eCW1 ([facility]) influenza, recombinant, quadrIvalent,injectable, prese rvative free 02/07/2019 01:25:00 PM EST completed eCW1 ([facility]) influenza, recombinant, quadrIvalent,injectable, prese rvative free 02/07/2019 01:25:00 PM EST completed eCW1 ([facility]) influenza, recombinant, quadrIvalent,injectable, prese rvative free 02/07/2019 01:25:00 PM EST completed eCW1 ([facility]) Medications Medication Brand Name Start Date Product Form Dose Route Admi nistrative Instructions Pharmacy Instructions Status Indications Reaction Description Data Source(s) atorvastatin 10 MG Oral Tablet ATORVASTATIN CALCIUM 03/16/2020 1 2:00:00 AM EST tablet 90 TAKE ONE TABLET BY MOUTH EVERY D AY TAKE ONE TABLET BY MOUTH EVERY DAY SOLD: 03/29/2020 [facility] 50 mcg (2,000 unit) 2020 12:00:00 AM EST capsule 90 TAKE ONE CAPSULE BY MOUTH EVERY DAY TAKE ONE CAPSULE BY MOUTH EVERY DAY SOLD: 03/05/2020 [facility] 81 mg 02/28/2020 12:00:00 AM EST tablet,delayed release (DR/EC) 90 TAKE ONE TABLET BY MOUTH EVERY DAY TAKE ONE TABLET BY MOUTH EVERY DAY SOLD: 03/01/2020 [facility] 100 mg 02/28/2020 12:00:00 AM EST capsule 360 TAKE TWO CAPSULES BY MOUTH TWICE A DAY TAKE TWO CAPSULES BY MOUTH TWICE A DAY SOLD: 03/01/2020 [facility] 75 mg 02/28/2020 12:00:00 AM EST tablet 90 TAKE ONE TABLET BY MOUTH EVERY DAY TAKE ONE TABLET BY MOUTH EVERY DAY SOLD: 03/01/2020 [facility] carvedilol 6.25 MG Oral Tablet CARVEDILOL 02/28/2020 12:00:00 AM EST tablet 180 TAKE ONE TABLET BY MOUTH TWICE A DAY TAKE ONE TABLET BY MOUT H TWICE A DAY SOLD: 03/01/2020 [facility] atorvastatin 10 MG Oral Tablet ATORVASTATIN CALCIUM 01/08/2020 1 2:00:00 AM EDT tablet 90 TAKE ONE TABLET BY MOUTH EVERY D AY TAKE ONE TABLET BY MOUTH EVERY DAY SOLD: 01/15/2020 [facility] carvedilol 6.25 MG Oral Tablet CARVEDILOL 08/29/2019 12:00:00 AM EDT tablet 180 TAKE ONE TABLET BY MOUTH TWICE A DAY TAKE ONE TABLET BY MOUT H TWICE A DAY SOLD: 08/29/2019 [facility] 10 mg 08/29/2019 12:00:00 AM EDT tablet 90 TAKE ONE TABLET BY MOUTH EVERY DAY TAKE ONE TABLET BY MOUTH EVERY DAY SOLD: 08/29/2019 [facility] 75 mg 08/29/2019 12:00:00 AM EDT tablet 90 TAKE ONE TABLET BY MOUTH EVERY DAY TAKE ONE TABLET BY MOUTH EVERY DAY SOLD: 08/29/2019 [facility] 81 mg 08/29/2019 12:00:00 AM EDT tablet,delayed release (DR/EC) 90 TAKE ONE TABLET BY MOUTH EVERY DAY TAKE ONE TABLET BY MOUTH EVERY DAY SOLD: 08/29/2019 [facility] 50 mcg (2,000 unit) 08/29/2019 12:00:00 AM EDT capsule 90 TAKE ONE CAPSULE BY MOUTH EVERY DAY TAKE ONE CAPSULE BY MOUTH EVERY DAY SOLD: 08/29/2019 [facility] 100 mg 08/29/2019 12:00:00 AM EDT capsule 360 TAKE TWO CAPSULES BY MOUTH TWICE A DAY TAKE TWO CAPSULES BY MOUTH TWICE A DAY SOLD: 08/29/2019 [facility] Ciprofloxacin 500 MG Oral Tablet Ciprofloxacin HCl 500 MG Ciprofloxacin HCl 500 MG 05/23/2019 12:00:00 AM EST active 1 tablet eCW1 ([facility]) 500 mg 05/23/2019 12:00:00 AM EST tablet 20 TAKE ONE TABLET BY MOUTH EVERY 12 HOURS FOR 10 DAYS TAKE ONE TABLET BY MOUTH EVERY 12 HOURS FOR 10 DAYS SO LD: 05/23/2019 [facility] Famotidine 40 MG Oral Tablet [Pepcid] Pepcid 40 MG Pepcid 40 MG 05/01/2019 12:00:00 AM EST active 1 tablet eCW1 ([facility]) Famotidine 40 MG Oral Tablet [Pepcid] Pepcid 40 MG Pepcid 40 MG 05/01/2019 12:00:00 AM EST suspended 1 tab let eCW1 ([facility]) Famotidine 40 MG Oral Tablet [Pepcid] Pepcid 40 MG Pepcid 40 MG 05/01/2019 12:00:00 AM EST active 1 tablet eCW1 ([facility]) Famotidine 40 MG Oral Tablet [Pepcid] Pepcid 40 MG Pepcid 40 MG 05/01/2019 12:00:00 AM EST suspended 1 tab let eCW1 ([facility]) Famotidine 40 MG Oral Tablet [Pepcid] Pepcid 40 MG Pepcid 40 MG 05/01/2019 12:00:00 AM EST suspended 1 tab let eCW1 ([facility]) 1,000 mcg/mL 02/14/2019 12:00:00 AM EST solution 8 ADMINISTER 1 ML INJECTION INTRAMUSCULARLY EVERY WEDNESDAY AND WEDNESDAY ADMINISTER 1 ML INJECTION INTRAMUSCULARLY EVERY WEDNESDAY AND WEDNESDAY SOLD: 02/14/2019 [facility] 1,000 mcg/mL 02/14/2019 12:00:00 AM EST solution 8 ADMINISTER 1 ML INJECTION INTRAMUSCULARLY EVERY WEDNESDAY AND WEDNESDAY ADMINISTER 1 ML INJECTION INTRAMUSCULARLY EVERY WEDNESDAY AND WEDNESDAY SOLD: 03/18/2019 [facility] 1,000 mcg/mL 02/14/2019 12:00:00 AM EST solution 8 ADMINISTER 1 ML INJECTION INTRAMUSCULARLY EVERY WEDNESDAY AND WEDNESDAY ADMINISTER 1 ML INJECTION INTRAMUSCULARLY EVERY WEDNESDAY AND WEDNESDAY SOLD: 06/20/2019 [facility] 1,000 mcg/mL 02/14/2019 12:00:00 AM EST solution 8 ADMINISTER 1 ML INJECTION INTRAMUSCULARLY EVERY WEDNESDAY AND WEDNESDAY ADMINISTER 1 ML INJECTION INTRAMUSCULARLY EVERY WEDNESDAY AND WEDNESDAY SOLD: 12/29/2019 [facility] 1 mL 30 gauge x 1/2" 02/14/2019 12:00:00 AM EST syringe 10 USE DIRECTED USE DIRECTED SOLD: 08/29/2019 [facility] 1 mL 30 gauge x 1/2" 02/14/2019 12:00:00 AM EST syringe 10 USE DIRECTED USE DIRECTED SOLD: 03/18/2019 [facility] 1 mL 30 gauge x 1/2" 02/14/2019 12:00:00 AM EST syringe 10 USE DIRECTED USE DIRECTED SOLD: 02/14/2019 [facility] 75 mg 01/09/2019 12:00:00 AM EDT tablet 30 TAKE ONE TABLET BY MOUTH DAILY TAKE ONE TABLET BY MOUTH DAILY SOLD: 05/17/2019 [facility] 75 mg 01/09/2019 12:00:00 AM EDT tablet 30 TAKE ONE TABLET BY MOUTH DAILY TAKE ONE TABLET BY MOUTH DAILY SOLD: 02/07/2019 [facility] 100 mg 11/15/2018 12:00:00 AM EDT capsule 120 TAKE TWO CAPSULES BY MOUTH TWICE A DAY TAKE TWO CAPSULES BY MOUTH TWICE A DAY SOLD: 05/23/2019 [facility] 100 mg 11/15/2018 12:00:00 AM EDT capsule 120 TAKE TWO CAPSULES BY MOUTH TWICE A DAY TAKE TWO CAPSULES BY MOUTH TWICE A DAY SOLD: 05/17/2019 [facility] 100 mg 11/15/2018 12:00:00 AM EDT capsule 120 TAKE TWO CAPSULES BY MOUTH TWICE A DAY TAKE TWO CAPSULES BY MOUTH TWICE A DAY SOLD: 02/07/2019 [facility] carvedilol 6.25 MG Oral Tablet CARVEDILOL 06/29/2018 12:00:00 AM EDT tablet 60 TAKE ONE TABLET BY MOUTH TWICE A DAY TAKE ONE TABLET BY MOUT H TWICE A DAY SOLD: 02/07/2019 [facility] Insurance Providers Payer name Policy type / Coverage type Policy ID Covered green party ID Covered green party's relationship to becker Policy Becker Plan Information EMEDNY [id number] SP [id number] [facility] [id number] SP [id number] [facility] [id number] SP [id number] MEDICAID [id number] SP [id number] [facility]) O [id number] S [id number] MEDICAID M [id number] S [id number] [facility] [id number] SP [id number] MEDICAID [id number] Maria Teresa [id number] [facility] MEDICARE [id number] Maria Teresa [id number] ANSI-Medicare Part B [id number] ANSI-Not a Secondary Insurance [id number] ANSI-Medicaid [id number] ANSI-Medicaid [id number] ANSI-Not a Secondary Insurance [id number] ANSI-Medicare Part B [id number] ANSI-Medicare Part B [id number] ANSI-Medicaid [id number] ANSI-Not a Secondary Insurance [id number] ANSI-Not a Secondary Insurance [id number] ANSI-Medicaid [id number] ANSI-Medicare Part B [id number] ANSI-Medicaid [id number] ANSI-Medicare Part B [id number] ANSI-Not a Secondary Insurance [id number] ANSI-Medicare Part B [id number] ANSI-Not a Secondary Insurance [id number] ANSI-Medicaid [id number] MEDICAID PI PI [facility] MEDICARE PI PI ANSI-Medicare Part B [id number] ANSI-Not a Secondary Insurance [id number] ANSI-Medicaid [id number] ANSI-Medicaid [id number] ANSI-Not a Secondary Insurance [id number] ANSI-Medicare Part B [id number] ANSI-Medicare Part B [id number] ANSI-Not a Secondary Insurance [id number] ANSI-Medicaid [id number] ANSI-Medicare Part B [id number] ANSI-Not a Secondary Insurance [id number] ANSI-Medicaid [id number] ANSI-Not a Secondary Insurance [id number] ANSI-Medicare Part B [id number] ANSI-Medicaid [id number] ANSI-Medicare Part B [id number] ANSI-Medicaid [id number] ANSI-Not a Secondary Insurance [id number] ANSI-Medicaid [id number] ANSI-Medicare Part B [id number] ANSI-Not a Secondary Insurance [id number] ANSI-Not a Secondary Insurance [id number] ANSI-Medicaid [id number] ANSI-Medicare Part B [id number] ANSI-Medicare Part B [id number] ANSI-Not a Secondary Insurance [id number] ANSI-Medicaid [id number] ANSI-Medicaid [id number] ANSI-Not a Secondary Insurance [id number] ANSI-Medicare Part B [id number] ANSI-Medicare Part B [id number] ANSI-Not a Secondary Insurance [id number] ANSI-Medicaid [id number] ANSI-Not a Secondary Insurance [id number] ANSI-Medicare Part B [id number] ANSI-Medicaid [id number] ANSI-Not a Secondary Insurance [id number] ANSI-Medicaid [id number] ANSI-Medicare Part B [id number] ANSI-Medicaid [id number] ANSI-Medicare Part B [id number] ANSI-Not a Secondary Insurance [id number] ANSI-Medicaid [id number] ANSI-Not a Secondary Insurance [id number] ANSI-Medicare Part B [id number] MEDICAID [id number] SP [id number] [facility] [id number] ANSI-Medicare Part B [id number] ANSI-Medicaid [id number] ANSI-Not a Secondary Insurance [id number] ANSI-Medicaid [id number] ANSI-Not a Secondary Insurance [id number] ANSI-Medicare Part B [id number] ANSI-Not a Secondary Insurance [id number] ANSI-Medicaid [id number] ANSI-Medicare Part B [id number] ANSI-Not a Secondary Insurance [id number] ANSI-Medicare Part B [id number] ANSI-Medicaid [id number] ANSI-Medicaid [id number] ANSI-Medicare Part B [id number] ANSI-Not a Secondary Insurance [id number] ANSI-Not a Secondary Insurance [id number] ANSI-Medicare Part B [id number] ANSI-Medicaid [id number] ANSI-Not a Secondary Insurance [id number] ANSI-Medicare Part B [id number] ANSI-Medicaid [id number] ANSI-Not a Secondary Insurance [id number] ANSI-Medicaid [id number] ANSI-Medicare Part B [id number] ANSI-Not a Secondary Insurance [id number] ANSI-Medicaid [id number] ANSI-Medicare Part B [id number] ANSI-Not a Secondary Insurance [id number] ANSI-Medicare Part B [id number] ANSI-Medicaid [id number] ANSI-Medicaid [id number] ANSI-Medicare Part B [id number] ANSI-Not a Secondary Insurance [id number] ANSI-Medicare Part B [id number] ANSI-Medicaid [id number] ANSI-Not a Secondary Insurance [id number] Medicare (Part B) Medicare Primary [id number] Self [id number] Medicaid Medigap Part B [id number] Self [id number] [facility] Dual Cov Plan Commercial [id number] Self [id number] MEDICARE [id number] SP [id number] A MEDICAID [id number] SP [id number] MEDICAID M [id number] S [id number] Medicare (Part B) Medicare Primary Self Medicaid Medigap Part B Self [facility] Dual Cov Plan Commercial Self MEDICARE [id number] SP [id number] A [facility] MCRO UNAVAILABLE SP UNAVAILABLE [place] Medigap Part B Self MEDICAID UNAVAILABLE UNAVAILA BLE MEDICARE C [id number] S [id number] [place] Self Medicare [place] Gov't Servi Medicare Primary Self [facility] [id number] Problems, Conditions, and Diagnoses Code Display Name Description Problem Type Effective Dates Data Source(s) M35.01 11028172 Sjogren's syndrome with keratoconjunctivi tis sicca Problem 06/07/2019 12:00:00 AM EDT eCW1 ([facility]) 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 Problem 06/07/2019 12:00:00 AM EDT eCW1 (Count includes the [facility]) G62.9 57669139 Peripheral polyneuropathy Problem 06/07/2019 12:00:00 AM EDT eCW1 ([facility]) M35.01 61780379 Sjogren's syndrome with keratoconjunctivi tis sicca Problem 06/07/2019 12:00:00 AM EDT eCW1 ([facility]) G32.0 22779270 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 Problem 06/07/2019 12:00:00 AM EDT eCW1 (Count includes the [facility]) N20.0 Nephrolithiasis Nephrolithiasis Problem 06/02/2019 12:0 0:00 AM EDT eCW1 ([facility]) N20.0 Nephrolithiasis Nephrolithiasis Problem 06/02/2019 12:0 0:00 AM EDT eCW1 ([facility]) I65.23 [id number] Bilateral carotid artery stenosis Problem 05/18/2019 12:00:00 AM EST eCW1 ([facility]) I65.23 [id number] Bilateral carotid artery stenosis Problem 05/18/2019 12:00:00 AM EST eCW1 ([facility]) I65.03 [id number] Stenosis of both vertebral arteries Probl em 05/17/2019 12:00:00 AM EST eCW1 ([facility]) G31.84 [id number] Mild cognitive impairment Problem 05/17/2019 12:00:00 AM EST eCW1 ([facility]) I65.03 88296260 Stenosis of both vertebral arteries Probl em 05/17/2019 12:00:00 AM EST eCW1 ([facility]) G31.84 672760036 Mild cognitive impairment Problem 05/17/2019 12:00:00 AM EST eCW1 ([facility]) Z72.0 Tobacco use Tobacco use Diagnosis 05/16/2019 08:59:26 AM [facility] I65.23 Occlusion and stenosis of bilateral harrison tid arteries Occlusion and stenosis of bilateral harrison Diagnosis 05/16/2019 08:59:26 AM [facility] I21.3 ST elevation (STEMI) myocardial infarcti on of unspecified site ST elevation (STEMI) myocardial infarcti Diagnosis 05/16/2019 08:59:26 AM [facility] I10 Essential (primary) hypertension Essential (primary) h ypertension Diagnosis 05/16/2019 08:59:26 AM [facility] E78.5 Hyperlipidemia, unspecified Hyperlipidemia, unspecifie d Diagnosis 05/16/2019 08:59:26 AM [facility] Z01.810 Encounter for preprocedural cardiovascul ar examination Encounter for preprocedural cardiovascul Diagnosis 05/16/2019 08:59:26 AM [facility] Surgeries/Procedures Procedure Description Date Indications Data Source(s) Immunization: Flublok Quadrivalent (18 years & older) 0.5mL IM (Influenza) 01/05/2020 12:00:00 AM EDT eCW1 ([facility]) Office Visit, New Pt., Level 4 PC 06/07/2019 12:00:00 AM EDT eCW1 ([facility]) INSERT TEMP BLADDER CATH 05/22/2019 12:00:00 AM EST eCW1 ([facility]) Office Visit, Est Pt., Level 4 PC 05/17/2019 12:00:00 AM EST eCW1 ([facility]) Office Visit, Est Pt., Level 2 FC 05/17/2019 12:00:00 AM EST eCW1 ([facility]) Office Visit, Est Pt., Level 3 PC 05/03/2019 12:00:00 AM EST eCW1 ([facility]) Office Visit, New Pt., Level 2 FC 04/19/2019 12:00:00 AM EST eCW1 ([facility]) Office Visit, New Pt., Level 3 PC 04/19/2019 12:00:00 AM EST eCW1 ([facility]) Injection: Tuberculin Purified Protein 0.1mL Intradermal (PP D) 02/07/2019 12:00:00 AM EST eCW1 ([facility]) RIV4 VACC RECOMBINANT DNA IM 02/07/2019 12:00:00 AM ES T eCW1 ([facility]) TB Intradermal Test 02/07/2019 12:00:00 AM EST eCW1 ([facility]) IMMUNIZATION ADMIN 02/07/2019 12:00:00 AM EST eCW1 ([facility]) Results ID Date Data Source VITAMIN B12 LEVEL 01/08/2020 11:43:52 AM EDT eCW1 ([facility]) Name Value Range Interpretation Code Description Data Kimberly rce(s) Supporting Document(s) 948 VITAMIN B12 LEVEL eCW1 (Count includes the [facility]) ID Date Data Source Comprehensive Metabolic Profile (CMP) 01/08/2020 11:43:28 AM EDT eCW1 ([facility]) Name Value Range Interpretation Code Description Data Kimberly rce(s) Supporting Document(s) 91 GLUCOSE, FASTING eCW1 ([facility]) 22 BLOOD UREA NITROGEN eCW1 ([facility]) 0.84 CREATININE FOR GFR eCW1 ([facility]) > 60.0 GLOMERULAR FILTRATION RATE eCW 1 ([facility]) 141 SODIUM LEVEL eCW1 ([facility]) 4.3 POTASSIUM SERUM eCW1 ([facility]) 24 CARBON DIOXIDE LEVEL eCW1 ([facility]) 9.7 CALCIUM LEVEL eCW1 ([facility]) 10 AST/SGOT eCW1 ([facility]) 110 CHLORIDE LEVEL eCW1 ([facility]) 7.2 TOTAL PROTEIN eCW1 ([facility]) 14 ALT/SGPT eCW1 ([facility]) 0.4 BILIRUBIN,TOTAL eCW1 ([facility]) 183 ALKALINE PHOSPHATASE eCW1 ([facility]) 3.5 ALBUMIN eCW1 ([facility]) 0.9 ALBUMIN/GLOBULIN RATIO eCW1 (formerly [facility]) ID Date Data Source CBC with Differential 01/08/2020 11:43:03 AM EDT eCW1 ([facility]) Name Value Range Interpretation Code Description Data Kimberly rce(s) Supporting Document(s) 8.3 WHITE BLOOD COUNT eCW1 (Count includes the [facility]) 12.8 HEMOGLOBIN eCW1 ([facility]) 4.48 RED BLOOD COUNT eCW1 ([facility]) 90.4 MEAN CORPUSCULAR VOLUME eCW1 ( [facility]) 31.6 MEAN CORPUSCULAR HGB CONC eCW1 ([facility]) 28.6 MEAN CORPUSCULAR HEMOGLOBIN eC W1 ([facility]) 40.5 HEMATOCRIT eCW1 ([facility]) 66.4 NEUTROPHILS % eCW1 ([facility]) 350 PLATELET COUNT, AUTOMATED eCW1 ([facility]) 24.9 LYMPH % eCW1 ([facility]) 13.3 RED CELL DISTRIBUTION WIDTH eC W1 ([facility]) 6.5 MONO % eCW1 ([facility]) 1.1 EOS % eCW1 ([facility]) 0.7 BASO % eCW1 ([facility]) 0.1 EOS # eCW1 ([facility]) 0.5 MONO # eCW1 ([facility]) 2.1 LYMPH # eCW1 ([facility]) 5.5 NEUTROPHILS # eCW1 ([facility]) 0.1 BASO # eCW1 ([facility]) ID Date Data Source VITAMIN D 25-HYDROXY 01/08/2020 11:42:39 AM EDT eCW1 (Count includes the [facility]) Name Value Range Interpretation Code Description Data Kimberly rce(s) Supporting Document(s) 39.8 TOTAL 25(OH) VITAMIN D eCW1 (formerly [facility]) ID Date Data Source PTH INTACT 01/08/2020 11:42:18 AM EDT eCW1 ([facility]) Name Value Range Interpretation Code Description Data Kimberly rce(s) Supporting Document(s) 53.3 PTH INTACT eCW1 ([facility]) ID Date Data Source PT & APTT 05/17/2019 12:00:00 AM EST eCW1 ([facility]) Name Value Range Interpretation Code Description Data Kimberly rce(s) Supporting Document(s) 1.03 INR eCW1 ([facility]) 13.2 11.8-14.0 PROTHROMBIN TIME eCW1 ([facility]) 29.7 25.0-38.4 PARTIAL THROMBOPLASTIN TI ME eCW1 ([facility]) ID Date Data Source Basic Metabolic Profile (BMP) 05/17/2019 12:00:00 AM EST eCW 1 ([facility]) Name Value Range Interpretation Code Description Data Kimberly rce(s) Supporting Document(s) 21 7-18 BLOOD UREA NITROGEN eCW1 ([facility]) > 60.0 >39 GLOMERULAR FILTRATION RATE eCW 1 ([facility]) 91 70-100 GLUCOSE, FASTING eCW1 ([facility]) 0.80 0.55-1.30 CREATININE FOR GFR eCW1 ([facility]) 25 21-32 CARBON DIOXIDE LEVEL eCW1 ([facility]) 140 136-145 SODIUM LEVEL eCW1 ([facility]) 110 98-107 CHLORIDE LEVEL eCW1 ([facility]) 4.0 3.5-5.1 POTASSIUM SERUM eCW1 ([facility]) 9.3 8.8-10.2 CALCIUM LEVEL eCW1 ([facility]) ID Date Data Source CBC - Complete Blood Count 05/17/2019 12:00:00 AM EST eCW1 ( [facility]) Name Value Range Interpretation Code Description Data Kimberly rce(s) Supporting Document(s) 9.3 4.0-10.0 WHITE BLOOD COUNT eCW1 (Count includes the [facility]) 38.7 36.0-47.0 HEMATOCRIT eCW1 ([facility]) 12.3 12.0-15.5 HEMOGLOBIN eCW1 ([facility]) 4.15 4.00-5.40 RED BLOOD COUNT eCW1 ([facility]) 93.3 80.0-96.0 MEAN CORPUSCULAR VOLUME e CW1 ([facility]) 12.8 11.5-14.5 RED CELL DISTRIBUTION WID TH eCW1 ([facility]) 29.6 27.0-33.0 MEAN CORPUSCULAR HEMOGLOB IN eCW1 ([facility]) 31.8 32.0-36.5 MEAN CORPUSCULAR HGB CONC eCW1 ([facility]) 311 150-450 PLATELET COUNT, AUTOMATED eCW1 ([facility]) Procedure Social History Code Duration Value Status Description Data Source(s ) Smoking 01/05/2020 12:00:00 AM EDT Former Smoker completed Former Smoker eCW1 ([facility]) Smoking 01/05/2020 12:00:00 AM EDT Former Smoker completed Former Smoker eCW1 ([facility]) Smoking 01/05/2020 12:00:00 AM EDT Former Smoker completed Former Smoker eCW1 ([facility]) Smoking 01/05/2020 12:00:00 AM EDT Former Smoker completed Former Smoker eCW1 ([facility]) Smoking 01/05/2020 12:00:00 AM EDT Former Smoker completed Former Smoker eCW1 ([facility]) Smoking 01/05/2020 12:00:00 AM EDT Former Smoker completed Former Smoker eCW1 ([facility]) Smoking 01/05/2020 12:00:00 AM EDT Former Smoker completed Former Smoker eCW1 ([facility]) Smoking 01/05/2020 12:00:00 AM EDT Former Smoker completed Former Smoker eCW1 ([facility]) Smoking 08/29/2019 12:00:00 AM EDT Former Smoker completed Former Smoker eCW1 ([facility]) Vital Signs ID Date Data Source UNK Name Value Range Interpretation Code Description Data Source(s) Diastolic blood pressure 80 mm[Hg] 80 mm[Hg] eCW1 ([facility]) Systolic blood pressure 130 mm[Hg] 130 mm[Hg] e CW1 ([facility]) Body temperature 98.6 [degF] 98.6 [degF] eCW1 ( [facility]) Respiratory rate 18 /min 18 /min eCW1 ([facility]) Heart rate 86 /min 86 /min eCW1 ([facility]) Body mass index (BMI) [Ratio] 20.04 kg/m2 20.04 kg/m2 eCW1 ([facility]) Body height 66 [in_i] 66 [in_i] eCW1 ([facility]) Body weight 124.2 [lb_av] 124.2 [lb_av] eCW1 (formerly [facility]) Body weight 53.978 kg 53.978 kg MEDENT ([facility], ) Body mass index (BMI) [Ratio] 20.4 kg/m2 20.4 k g/m2 MEDENT ([facility], ) Body weight 119.00 [lb_av] 119.00 [lb_av] MEDEN T ([facility], ) Body height 64 [in_i] 64 [in_i] MEDENT ([facility], ) 5'4" Body temperature 98.9 [degF] 98.9 [degF] MEDENT ([facility], ) Diastolic blood pressure 80 mm[Hg] 80 mm[Hg] MEDENT ([facility], ) Systolic blood pressure 140 mm[Hg] 140 mm[Hg] M EDENT ([facility], ) Diastolic blood pressure 68 mm[Hg] 68 mm[Hg] eCW1 ([facility]) Systolic blood pressure 116 mm[Hg] 116 mm[Hg] e CW1 ([facility]) Body temperature 99.2 [degF] 99.2 [degF] eCW1 ( [facility]) Respiratory rate 18 /min 18 /min eCW1 ([facility]) Heart rate 91 /min 91 /min eCW1 ([facility]) Body mass index (BMI) [Ratio] 17.91 kg/m2 17.91 kg/m2 eCW1 ([facility]) Body height 66 [in_us] 66 [in_us] eCW1 ([facility]) Body weight Measured [lb_av] eCW1 ([facility]) Diastolic blood pressure mm[Hg] eCW1 ([facility]) Systolic blood pressure 116 mm[Hg] 116 mm[Hg] e CW1 ([facility]) Body temperature 99.1 [degF] 99.1 [degF] eCW1 ( [facility]) Respiratory rate 17 /min 17 /min eCW1 ([facility]) Heart rate 71 /min 71 /min eCW1 ([facility]) Body mass index (BMI) [Ratio] 0.16 kg/m2 0.16 k g/m2 W1 ([facility]) Body height 66 [in_us] 66 [in_us] eCW1 ([facility]) Body weight Measured 1 [lb_av] 1 [lb_av] eCW1 ([facility]) Diastolic blood pressure 72 mm[Hg] 72 mm[Hg] eCW1 ([facility]) Systolic blood pressure 132 mm[Hg] 132 mm[Hg] e CW1 ([facility]) Body temperature 97.2 [degF] 97.2 [degF] eCW1 ( [facility]) Respiratory rate 18 /min 18 /min eCW1 ([facility]) Heart rate 70 /min 70 /min eCW1 ([facility]) Body mass index (BMI) [Ratio] 17.91 kg/m2 17.91 kg/m2 eCW1 ([facility]) Body height 66 [in_us] 66 [in_us] eCW1 ([facility]) Body weight Measured 111 [lb_av] 111 [lb_av] eC W1 ([facility]) Body mass index (BMI) [Ratio] 16.14 kg/m2 16.14 kg/m2 eCW1 ([facility]) Body height 66 [in_us] 66 [in_us] eCW1 ([facility]) Body weight Measured 100 [lb_av] 100 [lb_av] eC W1 ([facility]) Diastolic blood pressure 86 mm[Hg] 86 mm[Hg] eCW1 ([facility]) Systolic blood pressure 142 mm[Hg] 142 mm[Hg] e CW1 ([facility]) Respiratory rate 18 /min 18 /min eCW1 ([facility]) Heart rate 78 /min 78 /min eCW1 ([facility]) Diastolic blood pressure 74 mm[Hg] 74 mm[Hg] eCW1 ([facility]) Systolic blood pressure 126 mm[Hg] 126 mm[Hg] e CW1 ([facility]) Body temperature 99.4 [degF] 99.4 [degF] eCW1 ( [facility]) Respiratory rate 17 /min 17 /min eCW1 ([facility]) Heart rate 65 /min 65 /min eCW1 ([facility]) Body mass index (BMI) [Ratio] 16.14 kg/m2 16.14 kg/m2 eCW1 ([facility]) Body height 66 [in_us] 66 [in_us] eCW1 ([facility]) Body weight Measured 100 [lb_av] 100 [lb_av] eC W1 ([facility]) Diastolic blood pressure 72 mm[Hg] 72 mm[Hg] eCW1 ([facility]) Systolic blood pressure 140 mm[Hg] 140 mm[Hg] e CW1 ([facility]) Body temperature 98.3 [degF] 98.3 [degF] eCW1 ( [facility]) Respiratory rate 18 /min 18 /min eCW1 ([facility]) Heart rate 82 /min 82 /min eCW1 ([facility]) Body mass index (BMI) [Ratio] 15.30 kg/m2 15.30 kg/m2 eCW1 ([facility]) Body height 66 [in_us] 66 [in_us] eCW1 ([facility]) Body weight Measured 94.8 [lb_av] 94.8 [lb_av] eCW1 ([facility]) Patient Treatment Plan of Care Planned Activity Planned Date Details Description Data Source (s) Ciprofloxacin 500 MG Oral Tablet 05/23/2019 12:00:00 AM EST eCW1 ([facility]) Famotidine 40 MG Oral Tablet [Pepcid] 05/01/2019 12:00:00 AM EST eCW1 ([facility])
[2020-04-04 15:00] LABS: ACETAMINOPHEN LEVEL < 2.0 UG/ML (10.0-30.0); ALBUMIN 3.5 GM/DL (3.2-5.2); ALT/SGPT 12 U/L (12-78); BILIRUBIN,DIRECT 0.1 MG/DL (0.0-0.2); BILIRUBIN,TOTAL 0.5 MG/DL (0.2-1.0); BLOOD UREA NITROGEN 15 MG/DL (7-18); CALCIUM LEVEL 9.3 MG/DL (8.8-10.2); CARBON DIOXIDE LEVEL 27 MEQ/L (21-32); CHLORIDE LEVEL 107 MEQ/L (98-107); CK-MB VALUE MASS < 1.0 NG/ML (<3.6); CPK CREATINE PHOSPHOKINASE 305 U/L (26-192); CREATININE FOR GFR 0.75 MG/DL (0.55-1.30); ETHYL ALCOHOL (ETHANOL) < 0.003 % (0.000-0.010); GLOMERULAR FILTRATION RATE > 60.0 (>39); GLUCOSE, FASTING 91 MG/DL (70-100); MB/CK RELATIVE INDEX 0.33 (< OR =4); POTASSIUM SERUM 3.7 MEQ/L (3.5-5.1); SALICYLATE LEVEL < 1.7 MG/DL (5.0-30.0); SODIUM LEVEL 140 MEQ/L (136-145); TOTAL PROTEIN 7.1 GM/DL (6.4-8.2); TROPONIN I < 0.02 NG/ML (< 0.10)
[2020-04-04 15:16] LABS: OSMOLALITY SERUM 291 MOSM/KG (280-301)
[2020-04-04 15:21] LABS: AMPHETAMINES LEVEL URINE NEGATIVE (NEGATIVE); BARBITURATES URINE NEGATIVE (NEGATIVE); BENZODIAZEPINES URINE NEGATIVE (NEGATIVE); CANNABINOIDS URINE NEGATIVE (NEGATIVE); COCAINE METABOLITE URINE NEGATIVE (NEGATIVE); METHADONE URINE NEGATIVE (NEGATIVE); OPIATES URINE NEGATIVE (NEGATIVE); PHENCYCLIDINE URINE NEGATIVE (NEGATIVE)
--- NOTE | 2020-04-04 15:26 | REPVR ---
PROCEDURE INFORMATION: Exam: CT Head Without Contrast Exam date and time: 04/04/2020 1:20 PM Age: 70 years old Clinical indication: Altered mental status/memory loss TECHNIQUE: Imaging protocol: Computed tomography of the head without contrast. Radiation optimization: All CT scans at this facility use at least one of these dose optimization techniques: automated exposure control; mA and/or kV adjustment per patient size (includes targeted exams where dose is matched to clinical indication); or iterative reconstruction. COMPARISON: CT Head without contrast 09/13/2018 3:01 PM FINDINGS: Brain: No acute intracerebral abnormality or injury. No acute infarct or intracerebral bleed. Moderate age-appropriate cerebral atrophy with patchy periventricular leukomalacia in both cerebral hemispheres, consistent most likely with chronic underlying small vessel / microvascular ischemic disease. No significant interval change since the previous head CT from 09/13/2018. [place] Stroke Program Early CT Score (ASPECTS score) = 10. Cerebral ventricles: No ventriculomegaly. Bones/joints: Unremarkable. No acute fracture. Paranasal sinuses: Visualized sinuses are unremarkable. No fluid levels. Mastoid air cells: Visualized mastoid air cells are well aerated. Soft tissues: Unremarkable. IMPRESSION: 1. No acute intracerebral abnormality or injury. No acute infarct or intracerebral bleed. 2. Moderate age-appropriate cerebral atrophy with patchy periventricular leukomalacia in both cerebral hemispheres, consistent most likely with chronic underlying small vessel / microvascular ischemic disease. No significant interval change since the previous head CT from 09/13/2018. 3. [place] Stroke [facility] Early CT Score (ASPECTS score) = 10. Electronically signed by: Andriy Chang On 04/04/2020 15:26:16 PM
[2020-04-04] MEDS ORDERED: ASPI81TA26 PO (16:07)
[2020-04-04] MEDS ORDERED: ACET500T15 PO (16:07)
[2020-04-04] MEDS ORDERED: ATOR1TAB19 PO (16:07)
[2020-04-04] MEDS ORDERED: ALEN70TA82 PO (16:09)
--- NOTE | 2020-04-04 16:42 | ECGEPIP ---
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
--- NOTE | 2020-04-04 17:00 | REP ---
INDICATION: pain Nontraumatic hip pain. COMPARISON: None. TECHNIQUE: Frontal view of the pelvis with neutral and frog lateral views of the left hip. FINDINGS: Pelvis and right hip are intact and normal. There is evidence for prior fixation for femoral head/neck fracture. Correlation with history is recommended as superimposed acute injury through the femoral head/neck region cannot definitively be excluded. Surrounding soft tissues are unremarkable. IMPRESSION: Evidence for prior left femur fracture. Superimposed acute injury cannot be excluded through the left femoral head/neck region. Clinical correlation is recommended. <Electronically signed by Tani Carias > 04/04/20 2721
[2020-04-04] MEDS ORDERED: ACETAMINOPHEN 500 MG TAB PO PRN (17:30)
[2020-04-04] MEDS ORDERED: LORazepam 2 MG/ML VIAL IV STA (17:41)
[2020-04-04] MEDS ORDERED: HALOPERIDOL 5MG/ML VIAL (J1630 PER 1) IV ONE (17:45)
--- OUTSIDE RECORDS SUMMARY | 2020-04-04 18:05 | CCD ---
Author Author [facility] Organization [facility] Address Unknown Phone Unavailable Care Team Providers Care Electrical Logging Operator Name Role Phone NRI, 1024 Unavailable Unavailable Pomfret, N Tyler EMAIL CAMPAIGN MANAGER Unavailable Unavailable Ciara, N Tyler EMAIL CAMPAIGN MANAGER Unavailable Unavailable Pomfret, N Tyler EMAIL CAMPAIGN MANAGER Unavailable Unavailable Pomfret, N Tyler EMAIL CAMPAIGN MANAGER Unavailable Unavailable Pomfret, N Tyler EMAIL CAMPAIGN MANAGER Unavailable Unavailable Ciara, N Tyler EMAIL CAMPAIGN MANAGER Unavailable Unavailable Pomfret, N Tyler EMAIL CAMPAIGN MANAGER Unavailable Unavailable Pomfret, N Tyler EMAIL CAMPAIGN MANAGER Unavailable Unavailable Ciara, N Tyler EMAIL CAMPAIGN MANAGER Unavailable Unavailable Ciara, N Tyler EMAIL CAMPAIGN MANAGER Unavailable Unavailable Pomfret, N Tyler EMAIL CAMPAIGN MANAGER Unavailable Unavailable Ciara, N Tyler EMAIL CAMPAIGN MANAGER Unavailable Unavailable Pomfret, N Tyler EMAIL CAMPAIGN MANAGER Unavailable Unavailable Ciara, N Tyler EMAIL CAMPAIGN MANAGER Unavailable Unavailable Ciara, N Tyler EMAIL CAMPAIGN MANAGER Unavailable Unavailable Ciara, N Tyler EMAIL CAMPAIGN MANAGER Unavailable Unavailable Pomfret, N Tyler EMAIL CAMPAIGN MANAGER Unavailable Unavailable Ciara, N Tyler EMAIL CAMPAIGN MANAGER Unavailable Unavailable Pomfret, N Tyler EMAIL CAMPAIGN MANAGER Unavailable Unavailable Ciara, N Tyler EMAIL CAMPAIGN MANAGER Unavailable Unavailable Pomfret, N Tyler EMAIL CAMPAIGN MANAGER Unavailable Unavailable Pomfret, N Tyler EMAIL CAMPAIGN MANAGER Unavailable Unavailable Pomfret, N Tyler EMAIL CAMPAIGN MANAGER Unavailable Unavailable Pomfret, N Tyler EMAIL CAMPAIGN MANAGER Unavailable Unavailable Pomfret, N Tyler EMAIL CAMPAIGN MANAGER Unavailable Unavailable Pomfret, N Tyler EMAIL CAMPAIGN MANAGER Unavailable Unavailable Pomfret, N Tyler EMAIL CAMPAIGN MANAGER Unavailable Unavailable Pomfret, N Tyler EMAIL CAMPAIGN MANAGER Unavailable Unavailable Ciara, N Tyler EMAIL CAMPAIGN MANAGER Unavailable Unavailable Pomfret, N Tyler EMAIL CAMPAIGN MANAGER Unavailable Unavailable Re-disclosure Warning The records that [...] is protected by Article 27-F of the [facility] Public Health law. If you continue you may have access to information: Regarding HIV / AIDS; Provided by facilities licensed or operated by the [facility] Office of Mental Health; or Provided by the [facility] Office for People With Developmental Disabilities. If such information is present, then the following [facility] mandated warning applies: This information has [...] law may result in a fine or chcf sentence or both. A general authorization for the release of medical or other information is NOT sufficient authorization for further disc losure. Family History Family Member Name Family Member Gender Family Member Status Date o f Status Description Data Source(s) Unknown Unknown Problem MEDENT ([facility]) Unknown Unknown Problem MEDENT ([facility]) Unknown Female Problem MEDENT ([facility]) Unknown Female Problem MEDENT ([facility]) Encounters Encounter Providers Location Date Indications Data Source(s ) [place] [address] [facility] [address] 03/29/2020 12:00:00 AM EST eCW1 ([facility]) [place] [address] [facility] [address] 03/28/2020 12:00:00 AM EST eCW1 ([facility]) [place] [address] [facility] [address] 03/25/2020 12:00:00 AM EST [facility]CW1 [facility] [place] [address] [facility] [address] 03/01/2020 12:00:00 AM EST eCW1 ([facility] [place] [address] [facility] [address] 02/26/2020 12:00:00 AM EST eCW1 ([facility]) [place] [address] [facility] [address] 01/17/2020 12:00:00 AM EDT eCW1 [facility] [place] [address] [facility] [address] 01/08/2020 12:00:00 AM EDT eCW1 ([facility]) Office Visit, Est Pt., Level 4 PC [address] [place] [address] 01/05/2020 12:00:00 AM EDT eCW1 ([facility]) [place] [address] [facility] [address] 10/05/2019 12:00:00 AM EDT eCW1 ([facility]) [facility] [place] [address] [facility] [address] 08/29/2019 12:00:00 AM EDT eCW1 ([facility]) Outpatient Referrer: Arcenio DE LA GARZA 08/01/2019 05:53:00 AM EDT [facility] [place] [address] [facility] [address] 06/20/2019 12:00:00 AM EDT eCW1 [facility]) [facility] Rheumatology [address] [place] [address] 06/07/2019 12:00:00 AM EDT eCW1 [facility]) [facility] Urology [address] [facility] [place] [address] 06/02/2019 12:00:00 AM EDT eCW1 ([facility] [place]) [facility] Urology Center [address] [place] [address] 06/02/2019 12:00:00 AM EDT eCW1 [facility]) Outpatient Referrer: [facility] NRI 05/29/2019 11:32:00 AM EDT [facility] Outpatient Referrer: 1024 NRI 05/25/2019 01:40:00 PM EST [facility] Outpatient Referrer: 1024 NRI 05/23/2019 02:55:00 PM EST [facility] Urology [address] [facility] [address] 05/22/2019 12:00:00 AM EST eCW1 [facility]) [facility] Urology [address] [facility] [address] 05/22/2019 12:00:00 AM EST eCW1 [facility]) [facility] Urology [address] [facility] [address] 05/22/2019 12:00:00 AM EST eCW1 [facility]) [facility] Urology [address] [facility] [address] 05/18/2019 12:00:00 AM EST eCW1 [facility] [place] [address] [facility] [address] 05/17/2019 12:00:00 AM EST eCW1 [facility]) Outpatient Attender: Tyler DONAHUEP.PAULETTE-ROWANP.PAULETTE 05/16/2019 12 :00:00 AM EST [facility] Outpatient Referrer: 1024 NRI 05/04/2019 01:23:00 PM EST [facility] Urology [address] [place] [address], [place] [address] 05/03/2019 12:00:00 AM EST eCW1 ([facility]) [facility] [address] [place] [place] [address], [place] [address] 05/01/2019 12:00:00 AM EST eCW1 ([facility]) [facility] Urology [address] [place] [place] [address], [place] [address] 04/19/2019 12:00:00 AM EST eCW1 ([facility]) [address] [address] 04/13/2019 12:00:00 AM EST eCW1 ([facility]) [address] [address] 04/13/2019 12:00:00 AM EST eCW1 ([facility]) [address] [address] 02/21/2019 12:00:00 AM EST eCW1 ([facility]) [address] [address] 02/14/2019 12:00:00 AM EST eCW1 ([facility]) [address] [address] 02/09/2019 12:00:00 AM EST eCW1 ([facility]) [address] [address] 02/07/2019 12:00:00 AM EST eCW1 ([facility]) Immunizations Vaccine Date Status Description Data Source(s) influenza, recombinant, quadrIvalent,injectable, prese rvative free 01/05/2020 12:51:00 PM EDT completed eCW1 ([facility]) influenza, recombinant, quadrIvalent,injectable, prese rvative free 01/05/2020 12:51:00 PM EDT completed eCW1 ([facility]) influenza, recombinant, quadrIvalent,injectable, prese rvative free 01/05/2020 12:51:00 PM EDT completed eCW1 ([facility]) influenza, recombinant, quadrIvalent,injectable, prese rvative free 01/05/2020 12:51:00 PM EDT completed eCW1 ([facility]) influenza, recombinant, quadrIvalent,injectable, prese rvative free 01/05/2020 12:51:00 PM EDT completed eCW1 ([facility]) influenza, recombinant, quadrIvalent,injectable, prese rvative free 01/05/2020 12:51:00 PM EDT completed eCW1 ([facility]) influenza, recombinant, quadrIvalent,injectable, prese rvative free 01/05/2020 12:51:00 PM EDT completed eCW1 ([facility]) influenza, recombinant, quadrIvalent,injectable, prese rvative free 01/05/2020 12:51:00 PM EDT completed eCW1 ([facility]) influenza, recombinant, quadrIvalent,injectable, prese rvative free 02/07/2019 01:25:00 PM EST completed eCW1 ([facility]) influenza, recombinant, quadrIvalent,injectable, prese rvative free 02/07/2019 01:25:00 PM EST completed eCW1 ([facility]) influenza, recombinant, quadrIvalent,injectable, prese rvative free 02/07/2019 01:25:00 PM EST completed eCW1 ([facility]) influenza, recombinant, quadrIvalent,injectable, prese rvative free 02/07/2019 01:25:00 PM EST completed eCW1 ([facility]) influenza, recombinant, quadrIvalent,injectable, prese rvative free 02/07/2019 01:25:00 PM EST completed eCW1 ([facility]) influenza, recombinant, quadrIvalent,injectable, prese rvative free 02/07/2019 01:25:00 PM EST completed eCW1 ([facility]) influenza, recombinant, quadrIvalent,injectable, prese rvative free 02/07/2019 01:25:00 PM EST completed eCW1 ([facility]) influenza, recombinant, quadrIvalent,injectable, prese rvative free 02/07/2019 01:25:00 PM EST completed eCW1 ([facility]) influenza, recombinant, quadrIvalent,injectable, prese rvative free 02/07/2019 01:25:00 PM EST completed eCW1 ([facility]) influenza, recombinant, quadrIvalent,injectable, prese rvative free 02/07/2019 01:25:00 PM EST completed eCW1 ([facility]) Medications Medication Brand Name Start Date Product [...] 12:00:00 AM EST active 1 tablet eCW1 ([facility]) 500 mg 05/23/2019 12:00:00 AM EST tablet 20 TAKE ONE TABLET BY MOUTH EVERY 12 HOURS FOR 10 DAYS TAKE ONE TABLET BY MOUTH EVERY 12 HOURS FOR 10 DAYS SO LD: 05/23/2019 [facility] Famotidine 40 MG Oral Tablet [Pepcid] Pepcid 40 MG Pepcid 40 MG 05/01/2019 12:00:00 AM EST active 1 tablet eCW1 ([facility]) Famotidine 40 MG Oral Tablet [Pepcid] Pepcid 40 MG Pepcid 40 MG 05/01/2019 12:00:00 AM EST suspended 1 tab let eCW1 ([facility]) Famotidine 40 MG Oral Tablet [Pepcid] Pepcid 40 MG Pepcid 40 MG 05/01/2019 12:00:00 AM EST active 1 tablet eCW1 ([facility]) Famotidine 40 MG Oral Tablet [Pepcid] Pepcid 40 MG Pepcid 40 MG 05/01/2019 12:00:00 AM EST suspended 1 tab let eCW1 ([facility]) Famotidine 40 MG Oral Tablet [Pepcid] Pepcid 40 MG Pepcid 40 MG 05/01/2019 12:00:00 AM EST suspended 1 tab let eCW1 ([facility]) 1,000 mcg/mL 02/14/2019 12:00:00 AM EST solution [...] 10 USE DIRECTED USE DIRECTED SOLD: 02/14/2019 [facility] 75 mg 01/09/2019 12:00:00 AM [...] type / Coverage type Policy ID Covered democrat ID Covered democrat's relationship to becker Policy Becker Plan Information [facility] MCRO [id number] SP [id number] [place] [id number] SP [id number] [facility] [id number] SP [id number] [facility] [id number] SP [id number] MEDICAID [id number] SP [id number] [facility](MCAID) O [id number] S [id number] MEDICAID M [id number] S [id number] [facility] [id number] SP [id number] MEDICAID [id number] Maria Teresa [id number] [facility] MEDICARE [id number] Maria Teresa [id number] ANSI-Medicare Part B [id number] ANSI-Not a Secondary Insurance [id number] ANSI-Medicaid [id number] ANSI-Medicaid [id number] ANSI-Not a Secondary Insurance [id number] ANSI-Medicare Part B [id number] ANSI-Medicare Part B [id number] ANSI-Medicaid [id number] ANSI-Not a Secondary Insurance [id number] ANSI-Not a Secondary Insurance [id number] ANSI-Medicaid [id number] ANSI-Medicare Part B [id number] ANSI-Medicaid [id number] ANSI-Medicare Part B [id number] ANSI-Not a Secondary Insurance [id number] ANSI-Medicare Part B [id number] ANSI-Not a Secondary Insurance [id number] ANSI-Medicaid [id number] MEDICAID PI PI [facility] MEDICARE PI PI ANSI-Medicare Part B [id number] ANSI-Not a Secondary Insurance [id number] ANSI-Medicaid [id number] ANSI-Medicaid [id number] ANSI-Not a Secondary Insurance [id number] ANSI-Medicare Part B [id number] ANSI-Medicare Part B [id number] ANSI-Not a Secondary Insurance [id number] ANSI-Medicaid [id number] ANSI-Medicare Part B [id number] ANSI-Not a Secondary Insurance [id number] ANSI-Medicaid [id number] ANSI-Not a Secondary Insurance [id number] ANSI-Medicare Part B [id number] ANSI-Medicaid [id number] ANSI-Medicare Part B [id number] ANSI-Medicaid [id number] ANSI-Not a Secondary Insurance [id number] ANSI-Medicaid [id number] ANSI-Medicare Part B [id number] ANSI-Not a Secondary Insurance [id number] ANSI-Not a Secondary Insurance [id number] ANSI-Medicaid [id number] ANSI-Medicare Part B [id number] ANSI-Medicare Part B [id number] ANSI-Not a Secondary Insurance [id number] ANSI-Medicaid [id number] ANSI-Medicaid [id number] ANSI-Not a Secondary Insurance [id number] ANSI-Medicare Part B [id number] ANSI-Medicare Part B [id number] ANSI-Not a Secondary Insurance [id number] ANSI-Medicaid [id number] ANSI-Not a Secondary Insurance [id number] ANSI-Medicare Part B [id number] ANSI-Medicaid [id number] ANSI-Not a Secondary Insurance [id number] ANSI-Medicaid [id number] ANSI-Medicare Part B [id number] ANSI-Medicaid [id number] ANSI-Medicare Part B [id number] ANSI-Not a Secondary Insurance [id number] ANSI-Medicaid [id number] ANSI-Not a Secondary Insurance [id number] ANSI-Medicare Part B [id number] MEDICAID [id number] SP [id number] [facility] [id number] ANSI-Medicare Part B [id number] ANSI-Medicaid [id number] ANSI-Not a Secondary Insurance [id number] ANSI-Medicaid [id number] ANSI-Not a Secondary Insurance [id number] ANSI-Medicare Part B [id number] ANSI-Not a Secondary Insurance [id number] ANSI-Medicaid [id number] ANSI-Medicare Part B [id number] ANSI-Not a Secondary Insurance [id number] ANSI-Medicare Part B [id number] ANSI-Medicaid [id number] ANSI-Medicaid [id number] ANSI-Medicare Part B [id number] ANSI-Not a Secondary Insurance [id number] [id number] ANSI-Not a Secondary Insurance [id number] ANSI-Medicare Part B [id number] ANSI-Medicaid [id number] ANSI-Not a Secondary Insurance [id number] ANSI-Medicare Part B [id number] ANSI-Medicaid [id number] ANSI-Not a Secondary Insurance [id number] [id number]-c30s-[id number] ANSI-Medicaid [id number] ANSI-Medicare Part B [id number] ANSI-Not a Secondary Insurance [id number] ANSI-Medicaid [id number] ANSI-Medicare Part B [id number] ANSI-Not a Secondary Insurance [id number] ANSI-Medicare Part B [id number] ANSI-Medicaid [id number] ANSI-Medicaid [id number] ANSI-Medicare Part B [id number] ANSI-Not a Secondary Insurance [id number] ANSI-Medicare Part B [id number] ANSI-Medicaid [id number] ANSI-Not a Secondary Insurance [id number] Medicare (Part B) Medicare Primary [id number] Self [id number] Medicaid Medigap Part B [id number] Self [id number] [facility] Dual Cov Plan Commercial [id number] Self [id number] MEDICARE [id number] SP [id number] A MEDICAID [id number] SP [id number] MEDICAID M [id number] S [id number] Medicare (Part B) Medicare Primary Self Medicaid Medigap Part B Self [facility] Dual Cov Plan Commercial Self MEDICARE [id number] SP [id number] A [facility] UNAVAILABLE SP UNA[place]ILABLE [place] Medig[place] Part B Self MEDICAID UNAVAILABLE UNA[place]ILA BLE MEDICARE C [id number] S [id number] A Medicare [facility] Medicare Primary Self Medicare [facility] Gov't Servi Medicare Primary Self [facility] [id number] Problems, Conditions, and Diagnoses Code Display Name Description Problem Type Effective Dates Data Source(s) M35.01 93901323 Sjogren's syndrome with keratoconjunctivi tis sicca Problem 06/07/2019 12:00:00 AM EDT eCW1 ([facility]) G32.0 50594400 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 Problem 06/07/2019 12:00:00 AM EDT eCW1 ([facility]) G62.9 15462918 Peripheral polyneuropathy Problem 06/07/2019 12:00:00 AM EDT eCW1 ([facility]) M35.01 23524054 Sjogren's syndrome with keratoconjunctivi tis sicca Problem 06/07/2019 12:00:00 AM EDT eCW1 ([facility]) G32.0 07044974 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 Problem 06/07/2019 12:00:00 AM EDT eCW1 ([facility]) N20.0 Nephrolithiasis Nephrolithiasis Problem 06/02/2019 12:0 0:00 AM EDT eCW1 ([facility]) N20.0 Nephrolithiasis Nephrolithiasis Problem 06/02/2019 12:0 0:00 AM EDT eCW1 ([facility]) I65.23 [id number] Bilateral carotid artery stenosis Problem 05/18/2019 12:00:00 AM EST eCW1 ([facility]) I65.23 [id number] Bilateral carotid artery stenosis Problem 05/18/2019 12:00:00 AM EST eCW1 ([facility]) I65.03 [id number] Stenosis of both vertebral arteries Probl em 05/17/2019 12:00:00 AM EST eCW1 ([facility]) G31.84 [id number] Mild cognitive impairment Problem 05/17/2019 12:00:00 AM EST eCW1 ([facility]) I65.03 [id number] Stenosis of both vertebral arteries Probl em 05/17/2019 12:00:00 AM EST eCW1 ([facility]) G31.84 [id number] Mild cognitive impairment Problem 05/17/2019 12:00:00 AM EST eCW1 ([facility]) Z72.0 Tobacco use Tobacco use Diagnosis 05/16/2019 08:59:[address] [facility] [place] I65.23 Occlusion and stenosis of bilateral harrison tid arteries Occlusion and stenosis of bilateral harrison Diagnosis 05/16/2019 08:59:26 AM [facility] I21.3 ST elevation (STEMI) myocardial infarcti on of unspecified site ST elevation (STEMI) myocardial infarcti Diagnosis 05/16/2019 08:59:[address] [facility] [place] I10 Essential (primary) hypertension Essential (primary) h ypertension Diagnosis 05/16/2019 08:59:[address] [facility] [place] E78.5 Hyperlipidemia, unspecified Hyperlipidemia, unspecifie d Diagnosis 05/16/2019 08:59:[address] [facility] [place] Z01.810 Encounter for preprocedural cardiovascul ar examination Encounter for preprocedural cardiovascul Diagnosis 05/16/2019 08:59:26 AM [facility] Surgeries/Procedures Procedure Description Date Indications Data Source(s) Immunization: Flublok Quadrivalent (18 years & older) 0.5mL IM (Influenza) 01/05/2020 12:00:00 AM EDT eCW1 ([facility]) Office Visit, New Pt., Level 4 PC 06/07/2019 12:00:00 AM EDT eCW1 ([facility]) INSERT TEMP BLADDER CATH 05/22/2019 12:00:00 AM EST eCW1 ([facility]) Office Visit, Est Pt., Level 4 PC 05/17/2019 12:00:00 AM EST eCW1 ([facility]) Office Visit, Est Pt., Level 2 FC 05/17/2019 12:00:00 AM EST eCW1 ([facility]) Office Visit, Est Pt., Level 3 PC 05/03/2019 12:00:00 AM EST eCW1 ([facility]) Office Visit, New Pt., Level 2 FC 04/19/2019 12:00:00 AM EST eCW1 ([facility]) Office Visit, New Pt., Level 3 PC 04/19/2019 12:00:00 AM EST eCW1 ([facility]) Injection: Tuberculin Purified Protein 0.1mL Intradermal (PP D) 02/07/2019 12:00:00 AM EST eCW1 ([facility]) RIV4 VACC RECOMBINANT DNA IM 02/07/2019 12:00:00 AM ES T eCW1 ([facility]) TB Intradermal Test 02/07/2019 12:00:00 AM EST eCW1 ([facility]) IMMUNIZATION ADMIN 02/07/2019 12:00:00 AM EST eCW1 ([facility]) Results ID Date Data Source VITAMIN B12 LEVEL 01/08/2020 11:43:52 AM EDT eCW1 ([facility]) Name Value Range Interpretation Code Description Data Kimberly rce(s) Supporting Document(s) 948 VITAMIN B12 LEVEL eCW1 ([facility]) ID Date Data Source Comprehensive Metabolic Profile (CMP) 01/08/2020 11:43:28 AM EDT eCW1 ([facility]) Name Value Range Interpretation Code Description Data Kimberly rce(s) Supporting Document(s) 91 GLUCOSE, FASTING eCW1 ([facility]) 22 BLOOD UREA NITROGEN eCW1 ([facility]) 0.84 CREATININE FOR GFR eCW1 ([facility]) > 60.0 GLOMERULAR FILTRATION RATE eCW 1 ([facility]) 141 SODIUM LEVEL eCW1 ([facility]) 4.3 POTASSIUM SERUM eCW1 ([facility]) 24 CARBON DIOXIDE LEVEL eCW1 ([facility]) 9.7 CALCIUM LEVEL eCW1 ([facility]) 10 AST/SGOT eCW1 ([facility]) 110 CHLORIDE LEVEL eCW1 ([facility]) 7.2 TOTAL PROTEIN eCW1 ([facility]) 14 ALT/SGPT eCW1 ([facility]) 0.4 BILIRUBIN,TOTAL eCW1 ([facility]) 183 ALKALINE PHOSPHATASE eCW1 ([facility]) 3.5 ALBUMIN eCW1 ([facility]) 0.9 ALBUMIN/GLOBULIN RATIO eCW1 ([facility]) ID Date Data Source CBC with Differential 01/08/2020 11:43:03 AM EDT eCW1 ([facility]) Name Value Range Interpretation Code Description Data Kimberly rce(s) Supporting Document(s) 8.3 WHITE BLOOD COUNT eCW1 ([facility]) 12.8 HEMOGLOBIN eCW1 ([facility]) 4.48 RED BLOOD COUNT eCW1 ([facility]) 90.4 MEAN CORPUSCULAR VOLUME eCW1 ( [facility]) 31.6 MEAN CORPUSCULAR HGB CONC eCW1 ([facility]) 28.6 MEAN CORPUSCULAR HEMOGLOBIN eC W1 ([facility]) 40.5 HEMATOCRIT eCW1 ([facility]) 66.4 NEUTROPHILS % eCW1 ([facility]) 350 PLATELET COUNT, AUTOMATED eCW1 ([facility]) 24.9 LYMPH % eCW1 ([facility]) 13.3 RED CELL DISTRIBUTION WIDTH eC W1 ([facility]) 6.5 MONO % eCW1 ([facility]) 1.1 EOS % eCW1 ([facility]) 0.7 BASO % eCW1 ([facility]) 0.1 EOS # eCW1 ([facility]) 0.5 MONO # eCW1 ([facility]) 2.1 LYMPH # eCW1 ([facility]) 5.5 NEUTROPHILS # eCW1 ([facility]) 0.1 BASO # eCW1 ([facility]) ID Date Data Source VITAMIN D 25-HYDROXY 01/08/2020 11:42:39 AM EDT eCW1 ([facility]) Name Value Range Interpretation Code Description Data Kimberly rce(s) Supporting Document(s) 39.8 TOTAL 25(OH) VITAMIN D eCW1 ([facility]) ID Date Data Source PTH INTACT 01/08/2020 11:42:18 AM EDT eCW1 ([facility]) Name Value Range Interpretation Code Description Data Kimberly rce(s) Supporting Document(s) 53.3 PTH INTACT eCW1 ([facility]) ID Date Data Source PT & APTT 05/17/2019 12:00:00 AM EST eCW1 ([facility]) Name Value Range Interpretation Code Description Data Kimberly rce(s) Supporting Document(s) 1.03 INR eCW1 ([facility]) 13.2 11.8-14.0 PROTHROMBIN TIME eCW1 ([facility]) 29.7 25.0-38.4 PARTIAL THROMBOPLASTIN TI ME eCW1 ([facility]) ID Date Data Source Basic Metabolic Profile (BMP) 05/17/2019 12:00:00 AM EST eCW 1 ([facility]) Name Value Range Interpretation Code Description Data Kimberly rce(s) Supporting Document(s) 21 7-18 BLOOD UREA NITROGEN eCW1 ([facility]) > 60.0 >39 GLOMERULAR FILTRATION RATE eCW 1 ([facility]) 91 70-100 GLUCOSE, FASTING eCW1 ([facility]) 0.80 0.55-1.30 CREATININE FOR GFR eCW1 ([facility]) 25 21-32 CARBON DIOXIDE LEVEL eCW1 ([facility]) 140 136-145 SODIUM LEVEL eCW1 ([facility]) 110 98-107 CHLORIDE LEVEL eCW1 ([facility]) 4.0 3.5-5.1 POTASSIUM SERUM eCW1 ([facility]) 9.3 8.8-10.2 CALCIUM LEVEL eCW1 ([facility]) ID Date Data Source CBC - Complete Blood Count 05/17/2019 12:00:00 AM EST eCW1 ( [facility]) Name Value Range Interpretation Code Description Data Kimberly rce(s) Supporting Document(s) 9.3 4.0-10.0 WHITE BLOOD COUNT eCW1 ([facility]) 38.7 36.0-47.0 HEMATOCRIT eCW1 ([facility]) 12.3 12.0-15.5 HEMOGLOBIN eCW1 ([facility]) 4.15 4.00-5.40 RED BLOOD COUNT eCW1 ([facility]) 93.3 80.0-96.0 MEAN CORPUSCULAR VOLUME e CW1 ([facility]) 12.8 11.5-14.5 RED CELL DISTRIBUTION WID TH eCW1 ([facility]) 29.6 27.0-33.0 MEAN CORPUSCULAR HEMOGLOB IN eCW1 ([facility]) 31.8 32.0-36.5 MEAN CORPUSCULAR HGB CONC eCW1 ([facility]) 311 150-450 PLATELET COUNT, AUTOMATED eCW1 ([facility]) Procedure Social History Code Duration Value Status Description Data Source(s ) Smoking 01/05/2020 12:00:00 AM EDT Former Smoker completed Former Smoker eCW1 ([facility]) Smoking 01/05/2020 12:00:00 AM EDT Former Smoker completed Former Smoker eCW1 ([facility]) Smoking 01/05/2020 12:00:00 AM EDT Former Smoker completed Former Smoker eCW1 ([facility]) Smoking 01/05/2020 12:00:00 AM EDT Former Smoker completed Former Smoker eCW1 ([facility]) Smoking 01/05/2020 12:00:00 AM EDT Former Smoker completed Former Smoker eCW1 ([facility]) Smoking 01/05/2020 12:00:00 AM EDT Former Smoker completed Former Smoker eCW1 ([facility]) Smoking 01/05/2020 12:00:00 AM EDT Former Smoker completed Former Smoker eCW1 ([facility]) Smoking 01/05/2020 12:00:00 AM EDT Former Smoker completed Former Smoker eCW1 ([facility]) Smoking 08/29/2019 12:00:00 AM EDT Former Smoker completed Former Smoker eCW1 ([facility]) Vital Signs ID Date Data Source UNK Name Value Range Interpretation Code Description Data Source(s) Diastolic blood pressure 80 mm[Hg] 80 mm[Hg] eCW1 ([facility]) Systolic blood pressure 130 mm[Hg] 130 mm[Hg] e CW1 ([facility]) Body temperature 98.6 [degF] 98.6 [degF] eCW1 ( [facility]) Respiratory rate 18 /min 18 /min eCW1 ([facility]) Heart rate 86 /min 86 /min eCW1 ([facility]) Body mass index (BMI) [Ratio] 20.04 kg/m2 20.04 kg/m2 eCW1 ([facility]) Body height 66 [in_i] 66 [in_i] eCW1 ([facility]) Body weight 124.2 [lb_av] 124.2 [lb_av] eCW1 ([facility]) Body weight 53.978 kg 53.978 kg MEDENT ([facility], ) Body mass index (BMI) [Ratio] 20.4 kg/m2 20.4 k g/m2 MEDENT ([facility] [place], ) Body weight 119.00 [lb_av] 119.00 [lb_av] MEDEN T ([facility] [place], ) Body height 64 [in_i] 64 [in_i] MEDENT ([facility], ) 5'4" Body temperature 98.9 [degF] 98.9 [degF] MEDENT ([facility] [place], ) Diastolic blood pressure 80 mm[Hg] 80 mm[Hg] MEDENT ([facility] [place], ) Systolic blood pressure 140 mm[Hg] 140 mm[Hg] M EDENT ([facility] [place], ) Diastolic blood pressure 68 mm[Hg] 68 mm[Hg] eCW1 ([facility]) Systolic blood pressure 116 mm[Hg] 116 mm[Hg] e CW1 ([facility]) Body temperature 99.2 [degF] 99.2 [degF] eCW1 ( [facility]) Respiratory rate 18 /min 18 /min eCW1 ([facility]) Heart rate 91 /min 91 /min eCW1 ([facility]) Body mass index (BMI) [Ratio] 17.91 kg/m2 17.91 kg/m2 eCW1 ([facility]) Body height 66 [in_us] 66 [in_us] eCW1 ([facility]) Body weight Measured [lb_av] eCW1 ([facility]) Diastolic blood pressure mm[Hg] eCW1 ([facility]) Systolic blood pressure 116 mm[Hg] 116 mm[Hg] e CW1 ([facility]) Body temperature 99.1 [degF] 99.1 [degF] eCW1 ( [facility]) Respiratory rate 17 /min 17 /min eCW1 ([facility]) Heart rate 71 /min 71 /min eCW1 ([facility]) Body mass index (BMI) [Ratio] 0.16 kg/m2 0.16 k g/m2 W1 ([facility]) Body height 66 [in_us] 66 [in_us] eCW1 ([facility]) Body weight Measured 1 [lb_av] 1 [lb_av] eCW1 ([facility]) Diastolic blood pressure 72 mm[Hg] 72 mm[Hg] eCW1 ([facility]) Systolic blood pressure 132 mm[Hg] 132 mm[Hg] e CW1 ([facility]) Body temperature 97.2 [degF] 97.2 [degF] eCW1 ( [facility]) Respiratory rate 18 /min 18 /min eCW1 ([facility]) Heart rate 70 /min 70 /min eCW1 ([facility]) Body mass index (BMI) [Ratio] 17.91 kg/m2 17.91 kg/m2 eCW1 ([facility]) Body height 66 [in_us] 66 [in_us] eCW1 ([facility]) Body weight Measured 111 [lb_av] 111 [lb_av] eC W1 ([facility]) Body mass index (BMI) [Ratio] 16.14 kg/m2 16.14 kg/m2 eCW1 ([facility]) Body height 66 [in_us] 66 [in_us] eCW1 ([facility]) Body weight Measured 100 [lb_av] 100 [lb_av] eC W1 ([facility]) Diastolic blood pressure 86 mm[Hg] 86 mm[Hg] eCW1 ([facility]) Systolic blood pressure 142 mm[Hg] 142 mm[Hg] e CW1 ([facility]) Respiratory rate 18 /min 18 /min eCW1 ([facility]) Heart rate 78 /min 78 /min eCW1 ([facility]) Diastolic blood pressure 74 mm[Hg] 74 mm[Hg] eCW1 ([facility]) Systolic blood pressure 126 mm[Hg] 126 mm[Hg] e CW1 ([facility]) Body temperature 99.4 [degF] 99.4 [degF] eCW1 ( [facility]) Respiratory rate 17 /min 17 /min eCW1 ([facility]) Heart rate 65 /min 65 /min eCW1 ([facility]) Body mass index (BMI) [Ratio] 16.14 kg/m2 16.14 kg/m2 eCW1 ([facility]) Body height 66 [in_us] 66 [in_us] eCW1 ([facility]) Body weight Measured 100 [lb_av] 100 [lb_av] eC W1 ([facility]) Diastolic blood pressure 72 mm[Hg] 72 mm[Hg] eCW1 ([facility]) Systolic blood pressure 140 mm[Hg] 140 mm[Hg] e CW1 ([facility]) Body temperature 98.3 [degF] 98.3 [degF] eCW1 ( [facility]) Respiratory rate 18 /min 18 /min eCW1 ([facility]) Heart rate 82 /min 82 /min eCW1 ([facility]) Body mass index (BMI) [Ratio] 15.30 kg/m2 15.30 kg/m2 eCW1 ([facility]) Body height 66 [in_us] 66 [in_us] eCW1 ([facility]) Body weight Measured 94.8 [lb_av] 94.8 [lb_av] eCW1 ([facility]) Patient Treatment Plan of Care Planned Activity Planned Date Details Description Data Source (s) Ciprofloxacin 500 MG Oral Tablet 05/23/2019 12:00:00 AM EST eCW1 ([facility]) Famotidine 40 MG Oral Tablet [Pepcid] 05/01/2019 12:00:00 AM EST eCW1 ([facility])
--- NOTE | 2020-04-04 19:28 | HPEPDOC ---
General Date of Admission 04/04/20 Date of Service: Apr 04, 2020 Chief Complaint The patient is a 70-year-old female admitted with a reason for visit of AMS. Source: Family, RN/MD History of Present Illness 70 year old female with PMH of Dementia, CAD, HLD, Chronic left hip pain with left limb shortening after left hip fracture and fixation, Hypertension from home lives with boyfriend of 15 years who is also her HCP was brought in today due to increased confusion from baseline and complains of pain an burning during urination. Boyfriend reports that she can no longer does her personal care by herself. Patient has been deteriorating very fast over the past 1 to 2 years. She is unable to ambulate much without help due to the shortening of the left limb. She needs help with all her ADLS. At this point as per amie it has become very difficult to manage her at home as often she does not comprehend or cannot remember things. She was being fed for the past 3 weeks by her boyfriend as she can no longer feed herself. In the ED she was found to have a very dirty UA . Patient could not give any history due to her dementia. She just wanted to be left alone. Patient was admitted for UTI with advancing dementia wit possible delirum due to infection. Home Medications Scheduled Alendronate Sodium (Alendronate Sodium) 70 Mg Tablet, 70 MG PO QWEEK, (Reported) NEW MED, READY AT PHARMACY Aspirin (Aspirin EC) 81 Mg Tablet.dr, 81 MG PO DAILY, (Reported) Atorvastatin Calcium (Atorvastatin Calcium) 10 Mg Tablet, 10 MG PO DAILY, (Reported) Carvedilol (Carvedilol) 6.25 Mg Tablet, 6.25 MG PO BID, (Reported) Clopidogrel Bisulfate (Plavix) 75 Mg Tablet, 75 MG PO DAILY, (Reported) Gabapentin (Gabapentin) 100 Mg Capsule, 200 MG PO BID, (Reported) Scheduled PRN Acetaminophen (Acetaminophen) 500 Mg Tablet, 1,000 MG PO Q6H PRN for PAIN, (Reported) Allergies Coded Allergies: No Known Allergies (Verified , 05/16/19) Past Medical History Medical History Dementia Hypertension HLD GERD NEPHROLITHIASIS HYDRONEPHROSIS PUD-RESULTED IN GER-EN-Y PRIOR TO ID 2007 HO NSTEMI 11/2015 C LEFT HIP FRACTURE, L FEMORAL HEAD FRACTURE, ORIF 12/05 with screws SB INTUSSUSCEPTION-03/2016 OSTEOPOROSIS 03/04/2016 DEXA F/U 2Y VITAMIN B12 DEFICIENCY ON INJECTIONS Surgical History COLON RESECTION EGR-EN- Y IN [facility]; SUBTOTAL PARTIAL GASTRECTOMY 2007 SBO, INTUSSECEPTION @ [facility], 2016 Family History FATHER: MOTHER: , THYROID ISSUES SIBLINGS: ALIVE, ARTHRITIS A-FIB/CHADSVASC A-FIB History Current/History of A-Fib/PAF?: No Review of Systems Constitutional: Denies: Chills, Fever, Night Sweats ENT: Denies: Head Aches, Ear Pain, Dysphagia Pulmonary: Denies: Dyspnea, Cough, Pleuritic Chest Pain, Other Symptoms Gastrointestinal: Reports: Abdominal Pain; Denies: Nausea, Vomiting, Diarrhea Genitourinary: Reports: Dysuria, Incontinence Musculoskeletal: Reports: Back Pain, Joint Pain (hip pain) Psych: Reports: Memory Issues Physical Examination General Exam: Positive: Alert, No Acute Distress, Other (some times cooperative) Eye Exam: Positive: PERRLA, Conjunctiva & lids normal, EOMI; Negative: Sclera icteric ENT Exam: Positive: Atraumatic, Mucous membr. moist/pink, Pharynx Normal Neck Exam: Positive: Supple; Negative: JVD, thyromegaly Chest Exam: Positive: Clear to auscultation, Normal air movement Heart Exam: Positive: Rate Normal, Regular Rhythm, Normal S1, Normal S2; Negative: Murmurs, Rubs Abdomen Exam: Positive: Normal bowel sounds, Soft; Negative: Tenderness Extremity Exam: Negative: Clubbing, Cyanosis, Edema Psych Exam: Positive: Other (Oriented to only name) Vital Signs Vital Signs Date Time Temp Pulse Resp B/P (MAP) Pulse Ox O2 Delivery O2 Flow Rate FiO2 04/04/20 14:38 18 98 Room Air 04/04/20 14:35 108 218/94 (135) 04/04/20 13:28 98.4 Laboratory Data Labs 24H Laboratory Tests 2 04/04/20 13:50: Anion Gap 6L, Glomerular Filtration Rate > 60.0, Osmolality 291, Calcium Level 9.3, Total Bilirubin 0.5, Direct Bilirubin 0.1, Aspartate Amino Transf (AST/SGOT) 7, Alanine Aminotransferase (ALT/SGPT) 12, Alkaline Phosphatase 169H, Total Creatine Kinase 305H, Creatine Kinase MB < 1.0, Creatine Kinase MB Relative Index 0.33, Troponin I < 0.02, Total Protein 7.1, Albumin 3.5, Albumin/Globulin Ratio 1.0L, Thyroid Stimulating Hormone (TSH) 1.220, Salicylates Level < 1.7L, Acetaminophen Level < 2.0L, Ethyl Alcohol Level < 0.003 04/04/20 13:51: Immature Granulocyte % (Auto) 0.4, Neutrophils (%) (Auto) 61.6, Lymphocytes (%) (Auto) 27.8, Monocytes (%) (Auto) 8.6H, Eosinophils (%) (Auto) 0.9, Basophils (%) (Auto) 0.7, Neutrophils # (Auto) 5.2, Lymphocytes # (Auto) 2.4, Monocytes # (Auto) 0.7, Eosinophils # (Auto) 0.1, Basophils # (Auto) 0.1, Nucleated Red Blood Cells % (auto) 0.0, Lactic Acid Level 0.8, Ammonia < 10 04/04/20 14:37: Urine Color YELLOW, Urine Appearance CLOUDYH, Urine pH 6.0, Urine Specific Labadie 1.009, Urine Protein NEGATIVE, Urine Glucose (UA) NEGATIVE, Urine Ketones NEGATIVE, Urine Blood 1+H, Urine Nitrite NEGATIVE, Urine Bilirubin NEGATIVE, Urine Urobilinogen 0.2, Urine Leukocyte Esterase 3+H, Urine WBC (Auto) TNTCH, Urine RBC (Auto) 8H, Urine Hyaline Casts (Auto) 0, Urine Bacteria (Auto) 2+H, Urine Squamous Epithelial Cells 0, Urine Mucus (Auto) SMALL, Urine Sperm (Auto) , Urine Opiates Screen NEGATIVE, Urine Methadone Screen NEGATIVE, Urine Barbiturates Screen NEGATIVE, Urine Phencyclidine Screen NEGATIVE, Urine Amphetamines Screen NEGATIVE, Urine Benzodiazepines Screen NEGATIVE, Urine Cocaine Metabolite Screen NEGATIVE, Urine Cannabinoids Screen NEGATIVE CBC/BMP Laboratory Tests 04/04/20 13:50 04/04/20 13:51 Microbiology Microbiology 04/04/20 Urine Culture, Received Pending 04/04/20 Respiratory Virus Panel (PCR) ([facility]) - Final, Complete 04/04/20 Blood Culture, Received Pending 04/04/20 Blood Culture, Received Pending Assessment/Plan 70 year old female with PMH of Dementia, CAD, HLD, Chronic left hip pain with left limb shortening after left hip fracture and fixation, Hypertension from home lives with boyfriend of 15 years who is also her HCP was brought in today due to increased confusion from baseline and complains of pain an burning during urination. Boyfriend reports that she can no longer does her personal care by herself. Patient has been deteriorating very fast over the past 1 to 2 years. She is unable to ambulate much without help due to the shortening of the left limb. She needs help with all her ADLS. At this point as per amie it has become very difficult to manage her at home as often she does not comprehend or cannot remember things. She was being fed for the past 3 weeks by her boyfriend as she can no longer feed herself. In the ED she was found to have a very dirty UA . Patient could not give any history due to her dementia. She just wanted to be left alone. Patient was admitted for UTI with advancing dementia with possible delirium due to infection. UTI cultures sent ceftriaxone Dementia with delirium has advancing dementia with probably some delirium due to the infection Boy friend cannot manage her at home any more Looking for placement Seroquel daily haldol and ativan prn. Hypertension continue coreg CAD continue ASA, statin and coreg. Plan / VTE VTE Prophylaxis Ordered?: Yes ORESTES WALDEN MD Apr 04, 2020 16:30
[2020-04-04] MEDS: cefTRIAXone SOD 1 GM in D5W MINI-BAG PLUS 50 ML IV SCH (20:00)
[2020-04-04] MEDS: NYSTATIN 100,000 UNITS/GM TOPICAL PWD 15 GM TOP SCH (21:00)
[2020-04-04] MEDS: CARVedilol 6.25 MG TAB PO SCH (21:00)
[2020-04-04] MEDS: GABAPENTIN 100 MG CAP PO SCH (21:00)
[2020-04-04] MEDS ORDERED: LABETALOL 100MG/20ML VIAL IV STA (21:43)
[2020-04-04 23:37] VITALS: BP 129/85
[2020-04-05] VITALS (13 sets, daily range): BP systolic 112–141; BP diastolic 60–113
[2020-04-05 05:31] LABS: BASO % 0.2 % (0.0-1.0); HEMATOCRIT 42.3 % (36.0-47.0); HEMOGLOBIN 13.6 g/dl (12.0-15.5); LYMPH # 1.3 10^3/uL (1.5-5.0); MEAN CORPUSCULAR HGB CONC 32.2 g/dl (32.0-36.5); MEAN CORPUSCULAR VOLUME 90.2 fl (80.0-96.0); MONO # 0.6 10^3/uL (0.0-0.8); MONO % 4.9 % (0.0-5.0); NEUTROPHILS # 10.1 10^3/uL (1.5-8.5); NEUTROPHILS % 83.6 % (36.0-66.0); PLATELET COUNT, AUTOMATED 323 10^3/uL (150-450); RED BLOOD COUNT 4.69 10^6/uL (4.00-5.40); WHITE BLOOD COUNT 12.2 10^3/uL (4.0-10.0)
--- NOTE | 2020-04-05 05:59 | REP ---
INDICATION: Altered Mental Status COMPARISON: 01/05/2020 TECHNIQUE: Portable AP view of the chest FINDINGS: The mediastinum and cardiac silhouette are stable and within normal limits for portable technique. The lung godoy demonstrate chronic stable changes without acute consolidation, effusion, or pneumothorax. Skeletal structures are intact. IMPRESSION: No acute cardiopulmonary process appreciated. <Electronically signed by Tani Carias > 04/05/20 0542
[2020-04-05 06:02] LABS: BLOOD UREA NITROGEN 13 MG/DL (7-18); CALCIUM LEVEL 9.6 MG/DL (8.8-10.2); CARBON DIOXIDE LEVEL 25 MEQ/L (21-32); CHLORIDE LEVEL 104 MEQ/L (98-107); CREATININE FOR GFR 0.78 MG/DL (0.55-1.30); GLOMERULAR FILTRATION RATE > 60.0 (>39); GLUCOSE, FASTING 117 MG/DL (70-100); POTASSIUM SERUM 3.4 MEQ/L (3.5-5.1); SODIUM LEVEL 138 MEQ/L (136-145)
[2020-04-05] MEDS: GABAPENTIN 100 MG CAP PO SCH ×2 (08:29→20:22)
[2020-04-05] MEDS: ASPIRIN 81 MG ENTERIC TAB PO SCH (08:30)
[2020-04-05] MEDS: NYSTATIN 100,000 UNITS/GM TOPICAL PWD 15 GM TOP SCH ×2 (08:30→20:22)
[2020-04-05] MEDS: CLOPIDOGREL 75 MG TAB PO SCH (08:30)
[2020-04-05] MEDS: CARVedilol 6.25 MG TAB PO SCH ×2 (08:30→20:21)
[2020-04-05] MEDS: ATORVASTATIN 10 MG TAB PO SCH (08:30)
[2020-04-05] MEDS: QUEtiapine FUMARATE 25 MG TAB PO SCH (08:30)
[2020-04-05] MEDS: amLODIPine 5 MG TAB PO SCH ×2 (09:00→20:09)
--- NOTE | 2020-04-05 11:25 | IPNPDOC ---
Subjective Date Seen The patient was seen on 04/05/20. Subjective Chief Complaint/HPI calm and quiet this morning. Bp controlled. i think her Bp was very high due to her agitation. Objective Physical Examination General Exam: Positive: Alert, Cooperative, No Acute Distress Eye Exam: Positive: PERRLA, Conjunctiva & lids normal, EOMI; Negative: Sclera icteric ENT Exam: Positive: Atraumatic, Mucous membr. moist/pink, Pharynx Normal Neck Exam: Positive: Supple; Negative: JVD, thyromegaly Chest Exam: Positive: Clear to auscultation, Normal air movement Heart Exam: Positive: Rate Normal, Regular Rhythm, Normal S1, Normal S2; Negative: Murmurs, Rubs Abdomen Exam: Positive: Normal bowel sounds, Soft; Negative: Tenderness Extremity Exam: Negative: Clubbing, Cyanosis, Edema Psych Exam: Positive: Other (Oriented to only name) Assessment /Plan Assessment 70 year old female with PMH of Dementia, CAD, HLD, Chronic left hip pain with left limb shortening after left hip fracture and fixation, Hypertension from home lives with boyfriend of 15 years who is also her HCP was brought in today due to increased confusion from baseline and complains of pain an burning during urination. Boyfriend reports that she can no longer does her personal care by herself. Patient has been deteriorating very fast over the past 1 to 2 years. She is unable to ambulate much without help due to the shortening of the left limb. She needs help with all her ADLS. At this point as per amie it has become very difficult to manage her at home as often she does not comprehend or cannot remember things. She was being fed for the past 3 weeks by her boyfriend as she can no longer feed herself. In the ED she was found to have a very dirty UA . Patient could not give any history due to her dementia. She just wanted to be left alone. Patient was admitted for UTI with advancing dementia with possible delirium due to infection. UTI cultures sent ceftriaxone Dementia with delirium has advancing dementia with probably some delirium due to the infection Boy friend cannot manage her at home any more Looking for placement Seroquel daily haldol and ativan prn. Hypertension continue coreg will add amlodipine CAD continue ASA, statin and coreg. Plan/VTE VTE Prophylaxis Ordered?: Yes VS, I&O, 24H, Fishbone Vital Signs/I&O Vital Signs Date Time Temp Pulse Resp B/P (MAP) Pulse Ox O2 Delivery O2 Flow Rate FiO2 04/05/20 09:48 136/60 (85) 04/05/20 08:30 84 04/05/20 08:00 98.5 20 99 Room Air I&O- Last 24 Hours up to 6 AM 04/05/20 06:00 Intake Total 50 ml Balance 50 ml Laboratory Data 24H LABS Laboratory Tests 2 04/04/20 13:50: Anion Gap 6L, Glomerular Filtration Rate > 60.0, Osmolality 291, Calcium Level 9.3, Total Bilirubin 0.5, Direct Bilirubin 0.1, Aspartate Amino Transf (AST/SGOT) 7, Alanine Aminotransferase (ALT/SGPT) 12, Alkaline Phosphatase 169H, Total Creatine Kinase 305H, Creatine Kinase MB < 1.0, Creatine Kinase MB Relative Index 0.33, Troponin I < 0.02, Total Protein 7.1, Albumin 3.5, Albumin/Globulin Ratio 1.0L, Thyroid Stimulating Hormone (TSH) 1.220, Salicylates Level < 1.7L, Acetaminophen Level < 2.0L, Ethyl Alcohol Level < 0.003 04/04/20 13:51: Immature Granulocyte % (Auto) 0.4, Neutrophils (%) (Auto) 61.6, Lymphocytes (%) (Auto) 27.8, Monocytes (%) (Auto) 8.6H, Eosinophils (%) (Auto) 0.9, Basophils (%) (Auto) 0.7, Neutrophils # (Auto) 5.2, Lymphocytes # (Auto) 2.4, Monocytes # (Auto) 0.7, Eosinophils # (Auto) 0.1, Basophils # (Auto) 0.1, Nucleated Red Blood Cells % (auto) 0.0, Lactic Acid Level 0.8, Ammonia < 10 04/04/20 14:37: Urine Color YELLOW, Urine Appearance CLOUDYH, Urine pH 6.0, Urine Specific [place] 1.009, Urine Protein NEGATIVE, Urine Glucose (UA) NEGATIVE, Urine Ketones NEGATIVE, Urine Blood 1+H, Urine Nitrite NEGATIVE, Urine Bilirubin NEGATIVE, Urine Urobilinogen 0.2, Urine Leukocyte Esterase 3+H, Urine WBC (Auto) TNTCH, Urine RBC (Auto) 8H, Urine Hyaline Casts (Auto) 0, Urine Bacteria (Auto) 2+H, Urine Squamous Epithelial Cells 0, Urine Mucus (Auto) SMALL, Urine Sperm (Auto) , Urine Opiates Screen NEGATIVE, Urine Methadone Screen NEGATIVE, Urine Barbiturates Screen NEGATIVE, Urine Phencyclidine Screen NEGATIVE, Urine Amphetamines Screen NEGATIVE, Urine Benzodiazepines Screen NEGATIVE, Urine Cocaine Metabolite Screen NEGATIVE, Urine Cannabinoids Screen NEGATIVE 04/05/20 04:53: Anion Gap 9, Glomerular Filtration Rate > 60.0, Calcium Level 9.6, Immature Granulocyte % (Auto) 0.3, Neutrophils (%) (Auto) 83.6H, Lymphocytes (%) (Auto) 11.0L, Monocytes (%) (Auto) 4.9, Eosinophils (%) (Auto) 0.0, Basophils (%) (Auto) 0.2, Neutrophils # (Auto) 10.1H, Lymphocytes # (Auto) 1.3L, Monocytes # (Auto) 0.6, Eosinophils # (Auto) 0.0, Basophils # (Auto) 0.0, Nucleated Red Blood Cells % (auto) 0.0 CBC/BMP Laboratory Tests 04/04/20 13:50 04/04/20 13:51 04/05/20 04:53 Microbiology Microbiology 04/04/20 Urine Culture, Received Pending 04/04/20 Respiratory Virus Panel (PCR) (CAROLE) - Final, Complete 04/04/20 Blood Culture, Received Pending 04/04/20 Blood Culture, Received Pending ORESTES WALDEN MD Apr 05, 2020 11:25
[2020-04-05] MEDS: cefTRIAXone SOD 1 GM in D5W MINI-BAG PLUS 50 ML IV SCH (20:22)
[2020-04-06 06:00] VITALS: BP 121/70
[2020-04-06 07:13] LABS: BASO # 0.1 10^3/uL (0.0-0.2); BASO % 0.7 % (0.0-1.0); EOS # 0.1 10^3/uL (0.0-0.5); EOS % 0.9 % (0.0-3.0); HEMATOCRIT 38.4 % (36.0-47.0); HEMOGLOBIN 12.3 g/dl (12.0-15.5); LYMPH # 2.2 10^3/uL (1.5-5.0); LYMPH % 24.3 % (24.0-44.0); MEAN CORPUSCULAR HEMOGLOBIN 28.9 pg (27.0-33.0); MEAN CORPUSCULAR VOLUME 90.4 fl (80.0-96.0); MONO # 0.8 10^3/uL (0.0-0.8); MONO % 8.6 % (0.0-5.0); NEUTROPHILS # 5.8 10^3/uL (1.5-8.5); NEUTROPHILS % 65.2 % (36.0-66.0); PLATELET COUNT, AUTOMATED 308 10^3/uL (150-450); RED BLOOD COUNT 4.25 10^6/uL (4.00-5.40); WHITE BLOOD COUNT 8.9 10^3/uL (4.0-10.0)
[2020-04-06 07:41] LABS: CALCIUM LEVEL 8.9 MG/DL (8.8-10.2); CREATININE FOR GFR 1.46 MG/DL (0.55-1.30); GLOMERULAR FILTRATION RATE 37.5 (>39); POTASSIUM SERUM 3.6 MEQ/L (3.5-5.1)
[2020-04-06] MEDS: ATORVASTATIN 10 MG TAB PO SCH (07:55)
[2020-04-06] MEDS: CLOPIDOGREL 75 MG TAB PO SCH (07:55)
[2020-04-06] MEDS: QUEtiapine FUMARATE 25 MG TAB PO SCH (07:55)
[2020-04-06] MEDS: GABAPENTIN 100 MG CAP PO SCH ×2 (07:56→21:08)
[2020-04-06] MEDS: ASPIRIN 81 MG ENTERIC TAB PO SCH (07:56)
[2020-04-06] MEDS: amLODIPine 5 MG TAB PO SCH ×3 (07:57→20:57)
[2020-04-06] MEDS: CARVedilol 6.25 MG TAB PO SCH ×2 (07:58→21:09)
[2020-04-06] MEDS: NYSTATIN 100,000 UNITS/GM TOPICAL PWD 15 GM TOP SCH ×2 (07:58→21:09)
[2020-04-06] MEDS ORDERED: NS 1,000 ML IV ONE (08:00)
[2020-04-06] MEDS ORDERED: HALOPERIDOL 5MG/ML VIAL (J1630 PER 1) IV PRN (12:30)
--- NOTE | 2020-04-06 12:30 | IPNPDOC ---
Subjective Date Seen The patient was seen on 04/06/20. Subjective Chief Complaint/HPI This am again agitated and trying to get out of bed. Objective Physical Examination General Exam: Positive: Other (awake and agitated) Eye Exam: Positive: PERRLA, Conjunctiva & lids normal, EOMI; Negative: Sclera icteric ENT Exam: Positive: Atraumatic, Mucous membr. moist/pink, Pharynx Normal Neck Exam: Positive: Supple; Negative: JVD, thyromegaly Chest Exam: Positive: Clear to auscultation, Normal air movement Heart Exam: Positive: Rate Normal, Regular Rhythm, Normal S1, Normal S2; Negative: Murmurs, Rubs Abdomen Exam: Positive: Normal bowel sounds, Soft; Negative: Tenderness Extremity Exam: Positive: Other (left hip tenderness); Negative: Clubbing, Cyanosis, Edema Psych Exam: Positive: Other (Oriented to only name) Assessment /Plan Assessment 70 year old female with PMH of Dementia, CAD, HLD, Chronic left hip pain with left limb shortening after left hip fracture and fixation, Hypertension from home lives with boyfriend of 15 years who is also her HCP was brought in today due to increased confusion from baseline and complains of pain an burning during urination. Boyfriend reports that she can no longer does her personal care by herself. Patient has been deteriorating very fast over the past 1 to 2 years. She is unable to ambulate much without help due to the shortening of the left limb. She needs help with all her ADLS. At this point as per amie it has become very difficult to manage her at home as often she does not comprehend or cannot remember things. She was being fed for the past 3 weeks by her boyfriend as she can no longer feed herself. In the ED she was found to have a very dirty UA . Patient could not give any history due to her dementia. She just wanted to be left alone. Patient was admitted for UTI with advancing dementia with p ossible delirium due to infection. UTI UC klebsiella ceftriaxone KUSUM due to poor oral intake. Was asleep most of the day yesterday. given 1l bolus fluid Dementia with delirium has advancing dementia with probably some delirium due to the infection Boy friend cannot manage her at home any more Looking for placement Seroquel daily haldol prn. Hypertension continue coreg will add amlodipine CAD continue ASA, statin and coreg. Plan/VTE VTE Prophylaxis Ordered?: Yes VS, I&O, 24H, Fishbone Vital Signs/I&O Vital Signs Date Time Temp Pulse Resp B/P (MAP) Pulse Ox O2 Delivery O2 Flow Rate FiO2 04/06/20 07:59 88 130/68 04/06/20 06:00 98.5 18 95 Room Air I&O- Last 24 Hours up to 6 AM 04/06/20 06:00 Intake Total 50 ml Output Total 250 ml Balance -200 ml Laboratory Data 24H LABS Laboratory Tests 2 04/06/20 06:37: Immature Granulocyte % (Auto) 0.3, Neutrophils (%) (Auto) 65.2, Lymphocytes (%) (Auto) 24.3, Monocytes (%) (Auto) 8.6H, Eosinophils (%) (Auto) 0.9, Basophils (%) (Auto) 0.7, Neutrophils # (Auto) 5.8, Lymphocytes # (Auto) 2.2, Monocytes # (Auto) 0.8, Eosinophils # (Auto) 0.1, Basophils # (Auto) 0.1, Nucleated Red Blood Cells % (auto) 0.0, Anion Gap 10, Glomerular Filtration Rate 37.5L, Calcium Level 8.9 CBC/BMP Laboratory Tests 04/06/20 06:37 Microbiology Microbiology 04/04/20 Urine Culture - Final, Complete Klebsiella Pneumoniae 04/04/20 Respiratory Virus Panel (PCR) (CAROLE) - Final, Complete 04/04/20 Blood Culture - Preliminary, Resulted No growth after 24 hours . All specim... 04/04/20 Blood Culture - Preliminary, Resulted No growth after 24 hours . All specim... ORESTES WALDEN MD Apr 06, 2020 12:30
[2020-04-06 14:33] VITALS: BP 170/62
[2020-04-06] MEDS: cefTRIAXone SOD 1 GM in D5W MINI-BAG PLUS 50 ML IV SCH (21:09)
[2020-04-06 22:00] VITALS: BP 124/79
[2020-04-07 06:00] VITALS: BP 154/70
[2020-04-07] MEDS: amLODIPine 5 MG TAB PO SCH ×2 (06:42→21:12)
[2020-04-07 08:09] LABS: BLOOD UREA NITROGEN 21 MG/DL (7-18); CALCIUM LEVEL 9.1 MG/DL (8.8-10.2); CARBON DIOXIDE LEVEL 25 MEQ/L (21-32); CHLORIDE LEVEL 108 MEQ/L (98-107); CREATININE FOR GFR 0.78 MG/DL (0.55-1.30); GLOMERULAR FILTRATION RATE > 60.0 (>39); GLUCOSE, FASTING 90 MG/DL (70-100); POTASSIUM SERUM 3.7 MEQ/L (3.5-5.1); SODIUM LEVEL 141 MEQ/L (136-145)
[2020-04-07] MEDS: CLOPIDOGREL 75 MG TAB PO SCH (08:12)
[2020-04-07] MEDS: ATORVASTATIN 10 MG TAB PO SCH (08:13)
[2020-04-07] MEDS: ASPIRIN 81 MG ENTERIC TAB PO SCH (08:13)
[2020-04-07] MEDS: QUEtiapine FUMARATE 25 MG TAB PO SCH (08:13)
[2020-04-07] MEDS: CARVedilol 6.25 MG TAB PO SCH ×2 (08:13→21:12)
[2020-04-07] MEDS: NYSTATIN 100,000 UNITS/GM TOPICAL PWD 15 GM TOP SCH ×2 (08:14→21:12)
[2020-04-07] MEDS: GABAPENTIN 100 MG CAP PO SCH ×2 (08:14→21:11)
[2020-04-07 08:40] LABS: BASO # 0.1 10^3/uL (0.0-0.2); BASO % 0.8 % (0.0-1.0); EOS # 0.1 10^3/uL (0.0-0.5); EOS % 1.2 % (0.0-3.0); HEMATOCRIT 41.4 % (36.0-47.0); HEMOGLOBIN 13.6 g/dl (12.0-15.5); LYMPH # 1.9 10^3/uL (1.5-5.0); LYMPH % 21.6 % (24.0-44.0); MEAN CORPUSCULAR HEMOGLOBIN 29.6 pg (27.0-33.0); MEAN CORPUSCULAR HGB CONC 32.9 g/dl (32.0-36.5); MONO # 0.6 10^3/uL (0.0-0.8); NEUTROPHILS # 5.9 10^3/uL (1.5-8.5); NEUTROPHILS % 69.2 % (36.0-66.0); PLATELET COUNT, AUTOMATED 292 10^3/uL (150-450); WHITE BLOOD COUNT 8.6 10^3/uL (4.0-10.0)
--- NOTE | 2020-04-07 13:39 | IPNPDOC ---
Subjective Date Seen The patient was seen on 04/07/20. Subjective Chief Complaint/HPI Needs directions during eating. if not instructed she forgets to eat. More cooperative this morning and calm . Objective Physical Examination General Exam: Positive: Other (awake and agitated) Eye Exam: Positive: PERRLA, Conjunctiva & lids normal, EOMI; Negative: Sclera icteric ENT Exam: Positive: Atraumatic, Mucous membr. moist/pink, Pharynx Normal Neck Exam: Positive: Supple; Negative: JVD, thyromegaly Chest Exam: Positive: Clear to auscultation, Normal air movement Heart Exam: Positive: Rate Normal, Regular Rhythm, Normal S1, Normal S2; Negative: Murmurs, Rubs Abdomen Exam: Positive: Normal bowel sounds, Soft; Negative: Tenderness Extremity Exam: Positive: Other (left hip tenderness); Negative: Clubbing, Cyanosis, Edema Psych Exam: Positive: Other (Oriented to only name) Assessment /Plan Assessment 70 year old female with PMH of Dementia, CAD, HLD, Chronic left hip pain with left limb shortening after left hip fracture and fixation, Hypertension from home lives with boyfriend of 15 years who is also her HCP was brought in today due to increased confusion from baseline and complains of pain an burning during urination. Boyfriend reports that she can no longer does her personal care by herself. Patient has been deteriorating very fast over the past 1 to 2 years. She is unable to ambulate much without help due to the shortening of the left limb. She needs help with all her ADLS. At this point as per amie it has become very difficult to manage her at home as often she does not comprehend or cannot remember things. She was being fed for the past 3 weeks by her boyfriend as she can no longer feed herself. In the ED she was found to have a very dirty UA . Patient could not give any history due to her dementia. She just wanted to be left alone. Patient was admitted for UTI with advancing dementia with possible delirium due to infection. UTI UC klebsiella ceftriaxone KUSUM due to poor oral intake. Was asleep most of the day yesterday. resolved with IVF. Dementia with delirium has advancing dementia with probably some delirium due to the infection Boy friend cannot manage her at home any more Looking for placement Seroquel bid. haldol prn. Hypertension continue coreg will add amlodipine CAD continue ASA, statin and coreg. Plan/VTE VTE Prophylaxis Ordered?: Yes VS, I&O, 24H, Fishbone Vital Signs/I&O Vital Signs Date Time Temp Pulse Resp B/P (MAP) Pulse Ox O2 Delivery O2 Flow Rate FiO2 04/07/20 08:13 85 149/77 04/07/20 06:00 97.9 18 96 Room Air I&O- Last 24 Hours up to 6 AM 04/07/20 06:00 Intake Total 770 ml Balance 770 ml Laboratory Data 24H LABS Laboratory Tests 2 04/07/20 06:58: Anion Gap 8, Glomerular Filtration Rate > 60.0, Calcium Level 9.1 04/07/20 08:22: Immature Granulocyte % (Auto) 0.2, Neutrophils (%) (Auto) 69.2H, Lymphocytes (%) (Auto) 21.6L, Monocytes (%) (Auto) 7.0H, Eosinophils (%) (Auto) 1.2, Basophils (%) (Auto) 0.8, Neutrophils # (Auto) 5.9, Lymphocytes # (Auto) 1.9, Monocytes # (Auto) 0.6, Eosinophils # (Auto) 0.1, Basophils # (Auto) 0.1, Nucleated Red Blood Cells % (auto) 0.0 CBC/BMP Laboratory Tests 04/07/20 06:58 04/07/20 08:22 Microbiology Microbiology 04/04/20 Urine Culture - Final, Complete Klebsiella Pneumoniae 04/04/20 Respiratory Virus Panel (PCR) (CAROLE) - Final, Complete 04/04/20 Blood Culture - Preliminary, Resulted No Growth after 48 hours. All Specime... 04/04/20 Blood Culture - Preliminary, Resulted No Growth after 48 hours. All Specime... ORESTES WALDEN MD Apr 07, 2020 13:38
[2020-04-07] MEDS: cefTRIAXone SOD 1 GM in D5W MINI-BAG PLUS 50 ML IV SCH (21:11)
[2020-04-07 22:00] VITALS: BP 144/58
[2020-04-08 06:00] VITALS: BP 157/62
[2020-04-08] MEDS: amLODIPine 5 MG TAB PO SCH ×2 (09:00→22:23)
[2020-04-08] MEDS: ASPIRIN 81 MG ENTERIC TAB PO SCH (09:11)
[2020-04-08] MEDS: NYSTATIN 100,000 UNITS/GM TOPICAL PWD 15 GM TOP SCH ×2 (09:11→22:24)
[2020-04-08] MEDS: ATORVASTATIN 10 MG TAB PO SCH (09:11)
[2020-04-08] MEDS: GABAPENTIN 100 MG CAP PO SCH ×2 (09:12→22:22)
[2020-04-08] MEDS: CLOPIDOGREL 75 MG TAB PO SCH (09:13)
[2020-04-08] MEDS: QUEtiapine FUMARATE 25 MG TAB PO SCH (09:13)
[2020-04-08] MEDS: CARVedilol 6.25 MG TAB PO SCH ×2 (09:13→22:23)
[2020-04-08] MEDS ORDERED: HALOPERIDOL 5MG/ML VIAL (J1630 PER 1) IM PRN (14:15)
[2020-04-08] MEDS: CEFDINIR 300 MG CAP (OMNICEF) PO SCH (22:22)
[2020-04-09 06:00] VITALS: BP 162/75
[2020-04-09] MEDS: GABAPENTIN 100 MG CAP PO SCH ×2 (09:34→21:20)
[2020-04-09] MEDS: QUEtiapine FUMARATE 25 MG TAB PO SCH (09:34)
[2020-04-09] MEDS: ATORVASTATIN 10 MG TAB PO SCH (09:34)
[2020-04-09] MEDS: ASPIRIN 81 MG ENTERIC TAB PO SCH (09:34)
[2020-04-09] MEDS: CARVedilol 6.25 MG TAB PO SCH ×2 (09:35→21:20)
[2020-04-09] MEDS: amLODIPine 5 MG TAB PO SCH ×2 (09:35→21:21)
[2020-04-09] MEDS: CEFDINIR 300 MG CAP (OMNICEF) PO SCH ×2 (09:35→21:20)
[2020-04-09] MEDS: CLOPIDOGREL 75 MG TAB PO SCH (09:35)
[2020-04-09] MEDS: NYSTATIN 100,000 UNITS/GM TOPICAL PWD 15 GM TOP SCH ×2 (09:36→21:21)
[2020-04-09 11:03] VITALS: BP 144/72
[2020-04-10 06:00] VITALS: BP 129/67
[2020-04-10] MEDS ORDERED: AMLO1TAB24 PO (09:58)
[2020-04-10] MEDS ORDERED: QUET1TAB7 PO (09:58)
[2020-04-10] MEDS: CEFDINIR 300 MG CAP (OMNICEF) PO SCH (10:24)
[2020-04-10] MEDS: CLOPIDOGREL 75 MG TAB PO SCH (10:24)
[2020-04-10] MEDS: ATORVASTATIN 10 MG TAB PO SCH (10:24)
[2020-04-10] MEDS: GABAPENTIN 100 MG CAP PO SCH (10:24)
[2020-04-10] MEDS: ASPIRIN 81 MG ENTERIC TAB PO SCH (10:24)
[2020-04-10 10:25] VITALS: BP 164/78
[2020-04-10] MEDS: NYSTATIN 100,000 UNITS/GM TOPICAL PWD 15 GM TOP SCH (10:25)
[2020-04-10] MEDS: amLODIPine 5 MG TAB PO SCH (10:25)
[2020-04-10] MEDS: QUEtiapine FUMARATE 25 MG TAB PO SCH (10:25)
[2020-04-10] MEDS: CARVedilol 6.25 MG TAB PO SCH (10:26)
--- NOTE | 2020-04-10 15:15 | DS.PDOC ---
Discharge Summary General Date of Admission Apr 04, 2020 at 18:01 Date of Discharge 04/10/2020 Attending Physician: ANKIT MORTENSEN MD Discharge Summary PROCEDURES PERFORMED DURING STAY: None ADMITTING DIAGNOSES: 1. UTI 2. Progressive dementia DISCHARGE DIAGNOSES: Klebsiella UTI Acute metabolic encephalopathy on baseline progressive dementia HTN KUSUM HLD COMPLICATIONS/CHIEF COMPLAINT: Dementia, Uti. HISTORY OF PRESENT ILLNESS: 70 year old W with PMH of Dementia, CAD, HLD, Chronic left hip pain with left li mb shortening after left hip fracture and fixation, hypertension who was brought in from home where she lived with her boyfriend of 15 years who is also her HCP for increased confusion from baseline and complaints of pain an burning during urination. Boyfriend reported that she could no longer perform personal care by herself, reporting that she has been deteriorating very fast over the past 1 to 2 years. She was unable to ambulate much without help due to the shortening of the left limb. HOSPITAL COURSE: In the ED she was found to have a turbid active UA and she wad admitted for UTI, KUSUM and advancing dementia with possible delirium due to infection. Her Klebsiella UTI was treated to completion and she is now being discharged to SNF. DISCHARGE MEDICATIONS: Please see below. ALLERGIES: Please see below. PHYSICAL EXAMINATION ON DISCHARGE: VITAL SIGNS: Please see below. General: awake, NAD Eyes: Conjunctiva & lids normal, EOMI, anicteric ENT: Atraumatic, Mucous membr. moist/pink, Pharynx Normal Neck: Supple Chest: Clear to auscultation, Normal air movement Heart: Rate Normal, Regular Rhythm, Normal S1, Normal S2, no m/r/g Abdomen: Normal bowel sounds, Soft, NTND Extremities: no edema Psych: Oriented to her name LABORATORY DATA: Please see below. IMAGING: CT head: Brain: No acute intracerebral abnormality or injury. No acute infarct or intracerebral bleed. Moderate age-appropriate cerebral atrophy with patchy periventricular leukomalacia in both cerebral hemispheres, consistent most likely with chronic underlying small vessel / microvascular ischemic disease. No significant interval change since the previous head CT from 09/13/2018. [place] Stroke Program Early CT Score (ASPECTS score) = 10. Cerebral ventricles: No ventriculomegaly. Bones/joints: Unremarkable. No acute fracture. Paranasal sinuses: Visualized sinuses are unremarkable. No fluid levels. Mastoid air cells: Visualized mastoid air cells are well aerated. Soft tissues: Unremarkable. IMPRESSION: 1. No acute intracerebral abnormality or injury. No acute infarct or intracerebral bleed. 2. Moderate age-appropriate cerebral atrophy with patchy periventricular leukomalacia in both cerebral hemispheres, consistent most likely with chronic underlying small vessel / microvascular ischemic disease. No significant interval change since the previous head CT from 09/13/2018. 3. [place] Stroke Program Early CT Score (ASPECTS score) = 10. CXR: The mediastinum and cardiac silhouette are stable and within normal limits for portable technique. The lung godoy demonstrate chronic stable changes without acute consolidation, effusion, or pneumothorax. Skeletal structures are intact. IMPRESSION: No acute cardiopulmonary process appreciated. Hip XR: Pelvis and right hip are intact and normal. There is evidence for prior fixation for femoral head/neck fracture. Correlation with history is recommended as superimposed acute injury through the femoral head/neck region cannot definitively be excluded. Surrounding soft tissues are unremarkable. IMPRESSION: Evidence for prior left femur fracture. Superimposed acute injury cannot be excluded through the left femoral head/neck region. Clinical correlation is recommended. PROGNOSIS: Good ACTIVITY: As tolerated DIET: Regular diet DISCHARGE PLAN: SNF DISPOSITION: [facility]. DISCHARGE INSTRUCTIONS: 1. SNF ITEMS TO FOLLOWUP ON ON OUTPATIENT: 1. PCP/ SNF GP post discharge follow up DISCHARGE CONDITION: Stable TIME SPENT ON DISCHARGE: 50 minutes. Vital Signs/I&Os Vital Signs Date Time Temp Pulse Resp B/P (MAP) Pulse Ox O2 Delivery O2 Flow Rate FiO2 04/10/20 10:25 79 164/78 04/10/20 06:00 97.2 17 95 Room Air I&O- Last 24 Hours up to 6 AM 04/10/20 06:00 Intake Total 275 ml Output Total 0 ml Balance 275 ml Laboratory Data Labs 24H Laboratory Tests 2 04/09/20 15:50: Coronavirus (COVID-19)(PCR) NEGATIVE Microbiology Microbiology 04/04/20 Urine Culture - Final, Complete Klebsiella Pneumoniae 04/04/20 Respiratory Virus Panel (PCR) (CAROLE) - Final, Complete 04/04/20 Blood Culture - Final, Complete NO GROWTH AFTER 5 DAYS 04/04/20 Blood Culture - Final, Complete NO GROWTH AFTER 5 DAYS Discharge Medications Scheduled Alendronate Sodium (Alendronate Sodium) 70 Mg Tablet, 70 MG PO QWEEK, (Reported) NEW MED, READY AT PHARMACY Amlodipine Besylate (Amlodipine Besylate) 5 Mg Tablet, 5 MG PO BID Aspirin (Aspirin EC) 81 Mg Tablet.dr, 81 MG PO DAILY, (Reported) Atorvastatin Calcium (Atorvastatin Calcium) 10 Mg Tablet, 10 MG PO DAILY, (Reported) Carvedilol (Carvedilol) 6.25 Mg Tablet, 6.25 MG PO BID, (Reported) Clopidogrel Bisulfate (Plavix) 75 Mg Tablet, 75 MG PO DAILY, (Reported) Gabapentin (Gabapentin) 100 Mg Capsule, 200 MG PO BID, (Reported) Quetiapine Fumarate (Quetiapine Fumarate) 25 Mg Tablet, 25 MG PO DAILY Scheduled PRN Acetaminophen (Acetaminophen) 500 Mg Tablet, 1,000 MG PO Q6H PRN for PAIN, (Reported) Allergies Coded Allergies: No Known Allergies (Verified , 05/16/19) ANKIT MORTENSEN MD Apr 10, 2020 15:15
== END 2020-04-10 12:17 | DRG 690 ==
LOC: M ED 13:15 → EDBD 13:15 → M ED INP 18:01 → M PCU 23:28 → M MSPAV 04-05 15:45
PROVIDERS: ADMIT Internal Medicine Nephrology; ATTEND Internal Medicine
DX: N39.0 Urinary tract infection, site not specified (principal); N17.9 Acute kidney failure, unspecified; F03.90 Unspecified dementia, unspecified severity, without behavioral disturbance, psychotic disturbance, mood disturbance, and anxiety; B96.1 Klebsiella pneumoniae [K. pneumoniae] as the cause of diseases classified elsewhere; I25.10 Atherosclerotic heart disease of native coronary artery without angina pectoris; E78.5 Hyperlipidemia, unspecified; I10 Essential (primary) hypertension; R41.82 Altered mental status, unspecified; R41.0 Disorientation, unspecified; I25.2 Old myocardial infarction; M25.552 Pain in left hip; Z79.82 Long term (current) use of aspirin; Z79.02 Long term (current) use of antithrombotics/antiplatelets; Z79.899 Other long term (current) drug therapy; M81.0 Age-related osteoporosis without current pathological fracture; E53.8 Deficiency of other specified B group vitamins; Z74.09 Other reduced mobility; Z74.1 Need for assistance with personal care; Z90.49 Acquired absence of other specified parts of digestive tract; Z98.84 Bariatric surgery status; Z87.81 Personal history of (healed) traumatic fracture; Z11.52 Encounter for screening for COVID-19

== ENCOUNTER → 2020-04-12 | Outpatient (REF) ==
[~2020-04-12] MED LIST changes: +ACET500T15 PO; +ALEN70TA82 PO; +ASPI81TA26 PO; +ATOR1TAB19 PO; +IBUP1TAB5 PO; -IBUP40TA PO; +QUET25TA3 PO
== END ==
LOC: SKLAB2 07:00
DX: E55.9 Vitamin D deficiency, unspecified (principal); Z79.899 Other long term (current) drug therapy

== ENCOUNTER → 2020-04-17 | Outpatient (REF) ==
[~2020-04-17] MED LIST changes: -IBUP1TAB5 PO; +IBUP40TA PO; +QUET1TAB7 PO; -QUET25TA3 PO
== END ==
LOC: SKLAB3 14:33
PROVIDERS: ATTEND Internal Medicine
DX: Z20.822 Contact with and (suspected) exposure to COVID-19 (principal)

== ENCOUNTER → 2020-04-18 | Outpatient (REF) ==
[2020-04-18 13:23] LABS: CALCIUM LEVEL 9.6 MG/DL (8.8-10.2); CREATININE FOR GFR 1.02 MG/DL (0.55-1.30); GLOMERULAR FILTRATION RATE 56.7 (>39); POTASSIUM SERUM 4.2 MEQ/L (3.5-5.1)
== END ==
LOC: SKLAB3 07:00
DX: E78.5 Hyperlipidemia, unspecified (principal); I10 Essential (primary) hypertension; M85.88 Other specified disorders of bone density and structure, other site; I25.10 Atherosclerotic heart disease of native coronary artery without angina pectoris

== ENCOUNTER → 2020-04-24 | Outpatient (REF) ==
[~2020-04-24] MED LIST changes: +IBUP1TAB5 PO; -IBUP40TA PO; -QUET1TAB7 PO; +QUET25TA3 PO
== END ==
LOC: SKLAB3 07:00
PROVIDERS: ATTEND Internal Medicine
DX: Z11.52 Encounter for screening for COVID-19 (principal)

== ENCOUNTER → 2020-05-01 | Outpatient (REF) | payer MEDICARE, MEDICAID ==
[~2020-05-01] MED LIST changes: +PROTPAK PO
== END ==
LOC: SKLAB3 11:20
PROVIDERS: ATTEND Internal Medicine
DX: Z20.822 Contact with and (suspected) exposure to COVID-19 (principal)

== ENCOUNTER 2020-05-07 11:18 | Emergency (ER) | payer MEDICARE, MEDICAID ==
[~2020-05-07 11:18] MED LIST changes: -PROTPAK PO
[2020-05-07] MEDS ORDERED: PROTPAK PO (11:44)
--- NOTE | 2020-05-07 12:12 | REP ---
INDICATION: Altered Mental Status. COMPARISON: Comparison chest x-ray 04 April 2020. TECHNIQUE: Portable upright AP chest radiograph. FINDINGS: The lungs are well inflated and clear. The pleural angles are sharp. The heart is not enlarged. Patient is rotated somewhat to the right for the current exposure. Pulmonary vasculature is not increased.. No significant bony abnormality is seen. IMPRESSION: No active disease. <Electronically signed by Hunter Juan > 05/07/20 0725
[2020-05-07 13:00] LABS: BASO # 0.1 10^3/uL (0.0-0.2); BASO % 0.2 % (0.0-1.0); HEMATOCRIT 50.8 % (36.0-47.0); HEMOGLOBIN 15.2 g/dl (12.0-15.5); LYMPH # 1.2 10^3/uL (1.5-5.0); LYMPH % 5.8 % (24.0-44.0); MEAN CORPUSCULAR HEMOGLOBIN 29.3 pg (27.0-33.0); MEAN CORPUSCULAR HGB CONC 29.9 g/dl (32.0-36.5); MEAN CORPUSCULAR VOLUME 98.1 fl (80.0-96.0); MONO # 1.2 10^3/uL (0.0-0.8); NEUTROPHILS # 18.3 10^3/uL (1.5-8.5); NEUTROPHILS % 87.6 % (36.0-66.0); PLATELET COUNT, AUTOMATED 495 10^3/uL (150-450); RED BLOOD COUNT 5.18 10^6/uL (4.00-5.40); WHITE BLOOD COUNT 20.8 10^3/uL (4.0-10.0)
--- OUTSIDE RECORDS SUMMARY | 2020-05-07 13:14 | CCD ---
Author Author [facility] Organization [facility] Address Unknown Phone Unavailable Care Team Providers Care Circulation Librarian Name Role Phone Moris Alonzo Unavailable PROBLEMS Type Condition ICD9-CM Code [id number] Code Onset Dates Condition S tatus SNOMED Code Notes Problem Need for hepatitis C screening test Z11.59 Acti ve 241285308 Problem Leg cramps R25.2 Active 638182572 Problem Arthralgia of left shoulder region M25.512 Activ e 977417647 Problem Vitamin D deficiency E55.9 Active 04911190 Problem History of Nelly-en-Y gastric bypass Z98.84 Acti ve 524757905 Problem Leg length discrepancy M21.70 Active 65065435 Problem Constipation, unspecified constipation type K59.00 Active 99497237 Problem Neuropathy G62.9 Active 185916689 Problem Vitamin B12 deficiency E53.8 Active 334064943 Problem Weight loss R63.4 Active 19775163 Problem Hydronephrosis with urinary obstruction due to renal calcu cari N13.2 Active 669829225 Problem Encephalopathy G93.40 Active 37087016 Problem Osteoporosis M81.0 Active 42798891 Problem Bandemia D72.825 Active 446622759 Problem Age-related incipient cataract of both eyes H25.09 3 Active 237897775 Problem Iron deficiency anemia secondary to inadequate d ietary iron intake D50.8 Active 307979830 Problem Essential hypertension I10 Active 70165545 Problem Other chronic pain G89.29 Active 98268356 Problem Tobacco use Z72.0 Active 164502416 Problem Bilateral hearing loss, unspecified hearing loss type H91.93 Active 06912117 Problem S/p left hip fracture Z87.81 Active 444208576 Problem Localized osteoarthritis of hip M16.9 Active 469339196 Problem Breast cancer screening Z12.39 Active 24957924 6 Problem Ureterolithiasis N20.1 Active 86270574 Problem Coronary artery disease, ang steven presence unspecified, unspecified vessel or lesion type, unspecified whether marshall or transplanted heart I25.10 Active 39044836 Problem History of [place] (myocardial infarction) I25.2 Ac tive 589784590 Problem PUD (peptic ulcer disease) K27.9 Active 06507 003 Problem Stenosis of left carotid artery I65.22 Active 612422606884352 Problem Renal insufficiency N28.9 Active 553435321 Problem Bilateral carotid artery stenosis I65.23 Active 140394984 Problem 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 1 Active 060610551 Problem Mild cognitive impairment G31.84 Active 226850 002 Problem Stenosis of both vertebral arteries I65.03 Acti ve 83075058 Problem Gastroesophageal reflux disease without esophagitis K21.9 Active 902520144 Problem Sjogren's syndrome with keratoconjunctivitis sicca M35.01 Active 87989724 Problem Peripheral polyneuropathy G62.9 Active 616549 00 ALLERGIES No Known Allergies ENCOUNTERS from 1950 to 2020-04-17 Encounter Location Date Provider Diagnosis [facility] [id number] [id number] Mar Moris Alonzo IMMUNIZATIONS Vaccine Route Administration Date Status Vitamin [...] Information RESULTS No Results REASON FOR VISIT appt MEDICAL (GENERAL) HISTORY Type Description Date Medical History hypertension-LAE 38, mode TR, LVEF 65% b y 03/2016 TTE-Antecol Medical History Hyperlipidemia Medical History ho NSTEMI 11/2015 c Left hip fracture, SB Intusseception-03/2016 normal DA stress SPECT perfusion-[place] Medical History L femoral head fracture, ORIF 12/05 above @ [facility] Medical History PUD-resulted in [place] prior to [place] 2 008 Medical History GERD Medical History Nephrolithiasis Medical History UTI, metabolic acidosis, Alt ered MS, TIA, KUSUM c hydronephrosis resolved discharged 03/10- from [facility] Medical History Osteoporosis 03/04/2016 Dexa f/u 2Y Medical History Hyperextension L knee went to ED 07/2015 Medical History Vitamin b12 deficiency on injections Surgical History Colon Resection Surgical History Kerwin-en- Y in [facility]; subtotal partial gas trectomy 2007 Surgical History SBO, Intusseception @ [facility], 2016 Hospitalization History surgery related Hospitalization History child Hospitalization History hypokalemia 01/20 Hospitalization History dizzy,bp 03/10-03/14 Hospitalization History Nelly-en- Y in [facility] 2007 Hospitalization History Rehab-PT 09/2018 Goals Section [...] days Next Appt Details Provider Name:Aleida Hillman, 1-0 04-25 02:30:00 PM, [facility] [place], [address], Insurance Providers Payer Name Payer Address Payer Phone Insured Name Patient Relati onship to Insured Coverage Start Date Coverage End Date [facility] [address] [facility] [phone] [place] [employer] [address] [facility] [address] [place]
--- OUTSIDE RECORDS SUMMARY | 2020-05-07 13:14 | CCD ---
Author Author [facility] Organization [facility] Address Unknown Phone Unavailable Care Team Providers Care Redevelopment Manager Name Role Phone Aleida Hillamn Unavailable PROBLEMS Type Condition ICD9-CM Code [id number] Code Onset Dates Condition S tatus SNOMED Code Notes Problem Need for hepatitis C screening test Z11.59 Acti ve 198232040 Problem Leg cramps R25.2 Active 080301825 Problem Arthralgia of left shoulder region M25.512 Activ e 496567851 Problem Vitamin D deficiency E55.9 Active 08601092 Problem History of Nelly-en-Y gastric bypass Z98.84 Acti ve 038306869 Problem Leg length discrepancy M21.70 Active 03810309 Problem Constipation, unspecified constipation type K59.00 Active 82362179 Problem Neuropathy G62.9 Active 669466197 Problem Vitamin B12 deficiency E53.8 Active 101754427 Problem Weight loss R63.4 Active 00262157 Problem Hydronephrosis with urinary obstruction due to renal calcu cari N13.2 Active 910866317 Problem Encephalopathy G93.40 Active 57971708 Problem Osteoporosis M81.0 Active 77803549 Problem Bandemia D72.825 Active 553678806 Problem Age-related incipient cataract of both eyes H25.09 3 Active 972711682 Problem Iron deficiency anemia secondary to inadequate d ietary iron intake D50.8 Active 848965743 Problem Essential hypertension I10 Active 44217168 Problem Other chronic pain G89.29 Active 10861525 Problem Tobacco use Z72.0 Active 296289711 Problem Bilateral hearing loss, unspecified hearing loss type H91.93 Active 71051854 Problem S/p left hip fracture Z87.81 Active 331525170 Problem Localized osteoarthritis of hip M16.9 Active 610257432 Problem Breast cancer screening Z12.39 Active 96170853 6 Problem Ureterolithiasis N20.1 Active 42906633 Problem Coronary artery disease, ang steven presence unspecified, unspecified vessel or lesion type, unspecified whether [place] or transplanted heart I25.10 Active 29909881 Problem History of [place] (myocardial infarction) I25.2 Ac tive 512404824 Problem PUD (peptic ulcer disease) K27.9 Active 69032 003 Problem Stenosis of left carotid artery I65.22 Active 485092148874364 Problem Renal insufficiency N28.9 Active 668743422 Problem Bilateral carotid artery stenosis I65.23 Active 251000454 Problem 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 1 Active 414364052 Problem Mild cognitive impairment G31.84 Active 465940 002 Problem Stenosis of both vertebral arteries I65.03 Acti ve 65592328 Problem Gastroesophageal reflux disease without esophagitis K21.9 Active 845738722 Problem Sjogren's syndrome with keratoconjunctivitis sicca M35.01 Active 12970048 Problem Peripheral polyneuropathy G62.9 Active 760467 00 ALLERGIES No Known Allergies ENCOUNTERS from 1950 to 2020-04-04 Encounter Location Date Provider Diagnosis [address] [address] 14 Mar, 2020 Aleida Hillman IMMUNIZATIONS Vaccine Route Administration Date [...] 1000mcg/1mL (Cyanocobalamin) IM Intramuscular Feb 202017 Administered Influenza (18 yrs & older) Flublok IM Intramuscular Feb 09, 2018 Administered SOCIAL HISTORY Tobacco Use: Social [...] Information RESULTS No Results REASON FOR VISIT concerns MEDICAL (GENERAL) HISTORY Type Description Date Medical History hypertension-LAE 38, mode TR, LVEF 65% b y 03/2016 [facility] Medical History Hyperlipidemia Medical History ho NSTEMI 11/2015 c Left hip fracture, SB Intusseception-03/2016 normal DA stress SPECT perfusion-[facility] Medical History L femoral head fracture, ORIF 12/05 above @ [facility] Medical History PUD-resulted in [place]-en-Y prior to [place] 2 008 Medical History GERD Medical History Nephrolithiasis Medical History UTI, metabolic acidosis, Alt ered MS, TIA, KUSUM c hydronephrosis resolved discharged 03/10- from [facility] Medical History Osteoporosis 03/04/2016 Dexa f/u 2Y Medical History Hyperextension L knee went to ED 07/2015 Medical History Vitamin b12 deficiency on injections Surgical History Colon Resection Surgical History Kerwin-en- Y in [facility]; subtotal partial gas trectomy 2007 Surgical History SBO, Intusseception @ [facility], 2016 Hospitalization History surgery related Hospitalization History child Hospitalization History hypokalemia 01/20 Hospitalization History dizzy,bp 03/10-03/14 Hospitalization History Nelly-en- Y in [facility] 2007 Hospitalization History Rehab-PT 09/2018 Goals [...] Provider Name:Aleida Hillman, 04-25 02:30:00 PM, [address] [place], [address], Provider Name:Moris Alonzo, 2020-05-31 09:15:00 AM, [address], [place], [address], Insurance Providers Payer Name Payer Address Payer Phone Insured Name Patient Relati onship to Insured Coverage Start Date Coverage End Date [facility] [address] [facility] [phone] [place] [facility] [address] [facility] [id number] [place]
--- OUTSIDE RECORDS SUMMARY | 2020-05-07 13:14 | CCD ---
Author Author [facility] Organization [facility] Address Unknown Phone Unavailable Care Team Providers Care Intervention Teacher Name Role Phone Aleida Hillman Unavailable PROBLEMS Type Condition ICD9-CM Code [id number] Code Onset Dates Condition S tatus SNOMED Code Notes Problem Need for hepatitis C screening test Z11.59 Acti ve 954755256 Problem Leg cramps R25.2 Active 013281531 Problem Arthralgia of left shoulder region M25.512 Activ e 044279001 Problem Vitamin D deficiency E55.9 Active 30210769 Problem History of Nelly-en-Y gastric bypass Z98.84 Acti ve 361962544 Problem Leg length discrepancy M21.70 Active 59555702 Problem Constipation, unspecified constipation type K59.00 Active 55424896 Problem Neuropathy G62.9 Active 020871954 Problem Vitamin B12 deficiency E53.8 Active 471390249 Problem Weight loss R63.4 Active 97942383 Problem Hydronephrosis with urinary obstruction due to renal calcu cari N13.2 Active 632696546 Problem Encephalopathy G93.40 Active 14236527 Problem Osteoporosis M81.0 Active 46684738 Problem Bandemia D72.825 Active 156538913 Problem Age-related incipient cataract of both eyes H25.09 3 Active 487220219 Problem Iron deficiency anemia secondary to inadequate d ietary iron intake D50.8 Active 530485747 Problem Essential hypertension I10 Active 22760599 Problem Other chronic pain G89.29 Active 54736074 Problem Tobacco use Z72.0 Active 651979932 Problem Bilateral hearing loss, unspecified hearing loss type H91.93 Active 16692889 Problem S/p left hip fracture Z87.81 Active 344531404 Problem Localized osteoarthritis of hip M16.9 Active 834369818 Problem Breast cancer screening Z12.39 Active 70009068 6 Problem Ureterolithiasis N20.1 Active 95105157 Problem Coronary artery disease, ang steven presence unspecified, unspecified vessel or lesion type, unspecified whether habemat[place] or transplanted heart I25.10 Active 25265250 Problem History of [place] (myocardial infarction) I25.2 Ac tive 060542223 Problem PUD (peptic ulcer disease) K27.9 Active 34440 003 Problem Stenosis of left carotid artery I65.22 Active 542120786601979 Problem Renal insufficiency N28.9 Active 025259346 Problem Bilateral carotid artery stenosis I65.23 Active 371604695 Problem 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 1 Active 330749640 Problem Mild cognitive impairment G31.84 Active 410047 002 Problem Stenosis of both vertebral arteries I65.03 Acti ve 43020776 Problem Gastroesophageal reflux disease without esophagitis K21.9 Active 702209797 Problem Sjogren's syndrome with keratoconjunctivitis sicca M35.01 Active 19865909 Problem Peripheral polyneuropathy G62.9 Active 655529 00 ALLERGIES No Known Allergies ENCOUNTERS from 1950 to 2020-04-17 Encounter Location Date Provider Diagnosis [address] [address] Mar, Aleida Hillman IMMUNIZATIONS Vaccine Route Administration [...] Information RESULTS No Results REASON FOR VISIT update MEDICAL (GENERAL) HISTORY Type Description Date Medical History hypertension-LAE 38, mode TR, LVEF 65% b y 03/2016 [facility] Medical History Hyperlipidemia Medical History ho NSTEMI 11/2015 c Left hip fracture, SB Intusseception-03/2016 normal DA stress SPECT perfusion-[facility] Medical History L femoral head fracture, ORIF 12/05 above @ [facility] Medical History PUD-resulted in [place]-en-Y prior to [place] 2 008 Medical History GERD Medical History Nephrolithiasis Medical History UTI, metabolic acidosis, Alt ered MS, TIA, KUSUM c hydronephrosis resolved discharged 03/10- from [facility] Medical History Osteoporosis 03/04/2016 Dexa f/u 2Y Medical History Hyperextension L knee went to ED 07/2015 Medical History Vitamin b12 deficiency on injections Surgical History Colon Resection Surgical History Kerwin-en- Y in [facility]; subtotal partial gas trectomy 2007 Surgical History SBO, Intusseception @ [facility], 2016 Hospitalization History surgery related Hospitalization History child Hospitalization History hypokalemia 01/20 Hospitalization History dizzy,bp 03/10-03/14 Hospitalization History Nelly-en- Y in [facility] 2007 Hospitalization History Rehab-PT 09/2018 [...] 2 capsule Orally bid for 90 days Insurance Providers Payer Name Payer Address Payer Phone Insured Name Patient Relati onship to Insured Coverage Start Date Coverage End Date MEDICAID [employer] [address] [facility] [address] [place] [facility] [address] [facility] [address] [place]
--- OUTSIDE RECORDS SUMMARY | 2020-05-07 13:14 | CCD ---
Author Author [facility] Organization [facility] Address Unknown Phone Unavailable Care Team Providers Care Life Enrichment Assistant Name Role Phone Aleida Hillman Unavailable PROBLEMS Type Condition ICD9-CM Code [id number] Code Onset Dates Condition S tatus SNOMED Code Notes Problem Need for hepatitis C screening test Z11.59 Acti ve 800584623 Problem Leg cramps R25.2 Active 921066041 Problem Arthralgia of left shoulder region M25.512 Activ e 421871833 Problem Vitamin D deficiency E55.9 Active 80966783 Problem History of Nelly-en-Y gastric bypass Z98.84 Acti ve 136334963 Problem Leg length discrepancy M21.70 Active 88414381 Problem Constipation, unspecified constipation type K59.00 Active 80565170 Problem Neuropathy G62.9 Active 729374096 Problem Vitamin B12 deficiency E53.8 Active 539768003 Problem Weight loss R63.4 Active 83762345 Problem Hydronephrosis with urinary obstruction due to renal calcu cari N13.2 Active 503471957 Problem Encephalopathy G93.40 Active 99778835 Problem Osteoporosis M81.0 Active 64461146 Problem Bandemia D72.825 Active 298479480 Problem Age-related incipient cataract of both eyes H25.09 3 Active 967189506 Problem Iron deficiency anemia secondary to inadequate d ietary iron intake D50.8 Active 408508195 Problem Essential hypertension I10 Active 87641171 Problem Other chronic pain G89.29 Active 31664139 Problem Tobacco use Z72.0 Active 642621044 Problem Bilateral hearing loss, unspecified hearing loss type H91.93 Active 38600686 Problem S/p left hip fracture Z87.81 Active 194143199 Problem Localized osteoarthritis of hip M16.9 Active 726636506 Problem Breast cancer screening Z12.39 Active 49513825 6 Problem Ureterolithiasis N20.1 Active 59517282 Problem Coronary artery disease, ang steven presence unspecified, unspecified vessel or lesion type, unspecified whether [place] or transplanted heart I25.10 Active 88455649 Problem History of [place] (myocardial infarction) I25.2 Ac tive 376229567 Problem PUD (peptic ulcer disease) K27.9 Active 88332 003 Problem Stenosis of left carotid artery I65.22 Active 828765221692962 Problem Renal insufficiency N28.9 Active 057016926 Problem Bilateral carotid artery stenosis I65.23 Active 873157308 Problem 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 1 Active 598754114 Problem Mild cognitive impairment G31.84 Active 917249 002 Problem Stenosis of both vertebral arteries I65.03 Acti ve 59816523 Problem Gastroesophageal reflux disease without esophagitis K21.9 Active 459194810 Problem Sjogren's syndrome with keratoconjunctivitis sicca M35.01 Active 59035484 Problem Peripheral polyneuropathy G62.9 Active 059224 00 ALLERGIES No Known Allergies ENCOUNTERS from 1950 to 2020-04-04 Encounter Location Date Provider Diagnosis [address] [address] Mar, Aleida Hillman IMMUNIZATIONS Vaccine Route Administration [...] femoral head fracture, ORIF 12/05 above @ [facility] Medical History PUD-resulted in [place]-en-Y prior to [place] 2 008 Medical History GERD Medical History Nephrolithiasis Medical History UTI, metabolic acidosis, Alt ered MS, TIA, KUSUM c hydronephrosis resolved discharged 03/10- from [facility] Medical History Osteoporosis 03/04/2016 Dexa f/u 2Y Medical History Hyperextension L knee went to ED 07/2015 Medical History Vitamin b12 deficiency on injections Surgical History Colon Resection Surgical History Kerwin-en- Y in [facility]; subtotal partial gas trectomy 2007 Surgical History SBO, Intusseception @ [facility], 2016 Hospitalization History surgery related Hospitalization History child Hospitalization History hypokalemia 01/20 Hospitalization History dizzy,bp 03/10-03/14 Hospitalization History Nelly-en- Y in [facility] 2007 Hospitalization History Rehab-PT 09/2018 Goals [...] Provider Name:Aleida Hillman, 04-25 02:30:00 PM, [address] [place], [address], Provider Name:Moris Alonzo, 2020-05-31 09:15:00 AM, [address], [place], [address], Insurance Providers Payer Name Payer Address Payer Phone Insured Name Patient Relati onship to Insured Coverage Start Date Coverage End Date MEDICAID [employer] [address] [facility] [address] [place] [facility] [address] [facility] [id number] [place]
[2020-05-07] MEDS ORDERED: cefTRIAXone SOD 2 GM in D5W MINI-BAG PLUS 50 ML IV ONE (13:15)
[2020-05-07] MEDS ORDERED: NS IV ONE (13:15)
[2020-05-07] MEDS ORDERED: NS 1,530 ML in IV 1 EA IV ONE (13:15)
--- OUTSIDE RECORDS SUMMARY | 2020-05-07 13:15 | CCD ---
Author Author [facility] Organization [facility] Address Unknown Phone Unavailable Care Team Providers Care Supervisor Electron Tube Processing Name Role Phone NRI, 1024 Unavailable Unavailable Concan, N Tyler WOODS MANAGER Unavailable Unavailable Ciara, N Tyler WOODS MANAGER Unavailable Unavailable Concan, N Tyler WOODS MANAGER Unavailable Unavailable Concan, N Tyler WOODS MANAGER Unavailable Unavailable Concan, N Tyler WOODS MANAGER Unavailable Unavailable Ciara, N Tyler WOODS MANAGER Unavailable Unavailable Concan, N Tyler WOODS MANAGER Unavailable Unavailable Concan, N Tyler WOODS MANAGER Unavailable Unavailable Ciara, N Tyler WOODS MANAGER Unavailable Unavailable Ciara, N Tyler WOODS MANAGER Unavailable Unavailable Concan, N Tyler WOODS MANAGER Unavailable Unavailable Ciara, N Tyler WOODS MANAGER Unavailable Unavailable Concan, N Tyler WOODS MANAGER Unavailable Unavailable Ciara, N Tyler WOODS MANAGER Unavailable Unavailable Ciara, N Tyler WOODS MANAGER Unavailable Unavailable Ciara, N Tyler WOODS MANAGER Unavailable Unavailable Concan, N Tyler WOODS MANAGER Unavailable Unavailable Ciara, N Tyler WOODS MANAGER Unavailable Unavailable Concan, N Tyler WOODS MANAGER Unavailable Unavailable Ciara, N Tyler WOODS MANAGER Unavailable Unavailable Concan, N Tyler WOODS MANAGER Unavailable Unavailable Concan, N Tyler WOODS MANAGER Unavailable Unavailable Concan, N Tyler WOODS MANAGER Unavailable Unavailable Concan, N Tyler WOODS MANAGER Unavailable Unavailable Concan, N Tyler WOODS MANAGER Unavailable Unavailable Concan, N Tyler WOODS MANAGER Unavailable Unavailable Concan, N Tyler WOODS MANAGER Unavailable Unavailable Concan, N Tyler WOODS MANAGER Unavailable Unavailable Ciara, N Tyler WOODS MANAGER Unavailable Unavailable Concan, N Tyler WOODS MANAGER Unavailable Unavailable Ciara, N Tyler WOODS MANAGER Unavailable Unavailable Re-disclosure Warning The records [...] is protected by Article 27-F of the [facility] Public Health law. If you continue you may have access to information: Regarding HIV / AIDS; Provided by facilities licensed or operated by the [facility] Office of Mental Health; or Provided by the [facility] Office for People With Developmental Disabilities. If such information is present, then the following [facility] mandated warning applies: This information has [...] law may result in a fine or long-term sentence or both. A general authorization for the release of medical or other information is NOT sufficient authorization for further disc losure. Family History Family Member Name Family Member Gender Family Member Status Date o f Status Description Data Source(s) Unknown Unknown Problem MEDENT ([facility]) Unknown Unknown Problem MEDENT ([facility]) Unknown Female Problem MEDENT ([facility]) Unknown Female Problem MEDENT ([facility]) Encounters Encounter Providers Location Date Indications Data Source(s ) Unknown [address] [facility] [address] 04/16/2020 12:00:00 AM EST eCW1 ([facility]) [place] [address] [facility] [address] 04/16/2020 12:00:00 AM EST eCW1 ([facility]) [place] [address] [facility] [address] 04/04/2020 12:00:00 AM EST eCW1 ([facility]) [place] [address] [facility] [address] 04/02/2020 12:00:00 AM EST eCW1 ([facility]) Unknown [address] [facility] [address] 03/29/2020 12:00:00 AM EST eCW1 ([facility]) Unknown [address] [facility] [address] 03/28/2020 12:00:00 AM EST eCW1 ([facility]) Unknown [address] [facility] [address] 03/25/2020 12:00:00 AM EST eCW1 ([facility]) Unknown [address] [facility] [address] 03/01/2020 12:00:00 AM EST eCW1 ([facility]) Unknown [address] [facility] [place] [address] 02/26/2020 12:00:00 AM EST eCW1 ([facility]) Unknown [address] [facility] [place] [address] 01/17/2020 12:00:00 AM EDT eCW1 ([facility]) Unknown [address] [facility] [address] 01/08/2020 12:00:00 AM EDT eCW1 ([facility]) Office Visit, Est Pt., Level 4 PC [address] [place] [address] 01/05/2020 12:00:00 AM EDT eCW1 ([facility]) Unknown [address] [facility] [address] 10/05/2019 12:00:00 AM EDT eCW1 ([facility]) [facility] [address] [place] [address], [place] [address] 08/29/2019 12:00:00 AM EDT eCW1 ([facility]) Outpatient Referrer: 1024 NRI 08/01/2019 05:53:00 AM EDT [facility] [address] [facility] [address] 06/20/2019 12:00:00 AM EDT eCW1 ([facility]) [facility] Rheumatology [address] [place] [address] 06/07/2019 12:00:00 AM EDT eCW1 ([facility]) [facility] Urology [address] [place] [address] Y [address] 06/02/2019 12:00:00 AM EDT eCW1 ([facility]) [facility] Urology Center [address] [place] [address] 06/02/2019 12:00:00 AM EDT eCW1 ([facility]) Outpatient Referrer: 1024 NRI 05/29/2019 11:32:00 AM EDT [facility] Outpatient Referrer: 1024 NRI 05/25/2019 01:40:00 PM EST [facility] Outpatient Referrer: 1024 NRI 05/23/2019 02:55:00 PM EST [facility] Urology [address] [place] [address], [place] [address] 05/22/2019 12:00:00 AM EST eCW1 ([facility]) [facility] Urology [address] [place] [address], [place] [address] 05/22/2019 12:00:00 AM EST eCW1 ([facility]) [facility] Urology [address] [facility] [address] 05/22/2019 12:00:00 AM EST eCW1 ([facility]) [facility] Urology [address] [facility] [address] 05/18/2019 12:00:00 AM EST eCW1 ([facility]) [facility] [place] [address] [facility] [address] 05/17/2019 12:00:00 AM EST eCW1 ([facility]) Outpatient Attender: Tyler FERNANDEZ-SJCARMELLA 05/16/2019 12 :00:00 AM EST [facility] Outpatient Referrer: Arcenio DE LA GARZA 05/04/2019 01:23:00 PM EST [facility] Urology [address] [facility] [address] 05/03/2019 12:00:00 AM EST eCW1 ([facility]) [facility] [address] [place] [address], [place] [address] 05/01/2019 12:00:00 AM EST eCW1 ([facility]) [facility] Urology [address] [facility] [address] 04/19/2019 12:00:00 AM EST eCW1 ([facility]) [facility] [address] [place] [address], [place] [address] 04/13/2019 12:00:00 AM EST eCW1 ([facility]) [facility] [address] [facility] [address] 04/13/2019 12:00:00 AM EST eCW1 ([facility]) Immunizations Vaccine Date Status Description Data Source(s) influenza, recombinant, quadrIvalent,injectable, prese rvative free 01/05/2020 12:51:00 PM EDT completed eCW1 ([facility]) influenza, recombinant, quadrIvalent,injectable, prese rvative free 01/05/2020 12:51:00 PM EDT completed eCW1 ([facility]) influenza, recombinant, quadrIvalent,injectable, prese rvative free 01/05/2020 12:51:00 PM EDT completed eCW1 ([facility]) influenza, recombinant, quadrIvalent,injectable, prese rvative free 01/05/2020 12:51:00 PM EDT completed eCW1 ([facility]) influenza, recombinant, quadrIvalent,injectable, prese rvative free 01/05/2020 12:51:00 PM EDT completed eCW1 ([facility]) influenza, recombinant, quadrIvalent,injectable, prese rvative free 01/05/2020 12:51:00 PM EDT completed eCW1 ([facility]) influenza, recombinant, quadrIvalent,injectable, prese rvative free 01/05/2020 12:51:00 PM EDT completed eCW1 ([facility]) influenza, recombinant, quadrIvalent,injectable, prese rvative free 01/05/2020 12:51:00 PM EDT completed eCW1 ([facility]) influenza, recombinant, quadrIvalent,injectable, prese rvative free 01/05/2020 12:51:00 PM EDT completed eCW1 ([facility]) influenza, recombinant, quadrIvalent,injectable, prese rvative free 01/05/2020 12:51:00 PM EDT completed eCW1 ([facility]) influenza, recombinant, quadrIvalent,injectable, prese rvative free 01/05/2020 12:51:00 PM EDT completed eCW1 ([facility]) influenza, recombinant, quadrIvalent,injectable, prese rvative free 01/05/2020 12:51:00 PM EDT completed eCW1 ([facility]) Medications Medication Brand Name Start Date [...] 12:00:00 AM EST active 1 tablet eCW1 ([facility]) 500 mg 05/23/2019 12:00:00 AM EST tablet 20 TAKE ONE TABLET BY MOUTH EVERY 12 HOURS FOR 10 DAYS TAKE ONE TABLET BY MOUTH EVERY 12 HOURS FOR 10 DAYS SO LD: 05/23/2019 [facility] Famotidine 40 MG Oral Tablet [Pepcid] Pepcid 40 MG Pepcid 40 MG 05/01/2019 12:00:00 AM EST active 1 tablet eCW1 ([facility]) Famotidine 40 MG Oral Tablet [Pepcid] Pepcid 40 MG Pepcid 40 MG 05/01/2019 12:00:00 AM EST suspended 1 tab let eCW1 ([facility]) Famotidine 40 MG Oral Tablet [Pepcid] Pepcid 40 MG Pepcid 40 MG 05/01/2019 12:00:00 AM EST active 1 tablet eCW1 ([facility]) Famotidine 40 MG Oral Tablet [Pepcid] Pepcid 40 MG Pepcid 40 MG 05/01/2019 12:00:00 AM EST suspended 1 tab let eCW1 ([facility]) Famotidine 40 MG Oral Tablet [Pepcid] Pepcid 40 MG Pepcid 40 MG 05/01/2019 12:00:00 AM EST suspended 1 tab let eCW1 ([facility]) 1,000 mcg/mL 02/14/2019 12:00:00 AM EST solution [...] 10 USE DIRECTED USE DIRECTED SOLD: 08/29/2019 [facility] 1 mL 30 gauge x 1/2" 02/14/2019 12:00:00 AM EST syringe 10 USE DIRECTED USE DIRECTED SOLD: 03/18/2019 [facility] 75 mg 01/09/2019 12:00:00 AM EDT tablet 30 TAKE ONE TABLET BY MOUTH DAILY TAKE ONE TABLET BY MOUTH DAILY SOLD: 05/17/2019 [facility] 100 mg 11/15/2018 12:00:00 AM EDT capsule 120 TAKE TWO CAPSULES BY MOUTH TWICE A DAY TAKE TWO CAPSULES BY MOUTH TWICE A DAY SOLD: 05/23/2019 [facility] 100 mg 11/15/2018 12:00:00 AM EDT capsule 120 TAKE TWO CAPSULES BY MOUTH TWICE A DAY TAKE TWO CAPSULES BY MOUTH TWICE A DAY SOLD: 05/17/2019 [facility] Insurance Providers Payer name Policy type / Coverage type Policy ID Covered constitution party ID Covered constitution party's relationship to becker Policy Becker Plan Information WELLCARE [id number] SP [id number] EMEDNY [id number] SP [id number] [facility] [id number] SP [id number] VNA HOME CARE OPTIONS O [id number] S [id number] [facility] [id number] SP [id number] [facility] [id number] SP [id number] MEDICAID [id number] SP [id number] [facility](MCAID) O [id number] S [id number] MEDICAID M [id number] S [id number] [facility] [id number] SP [id number] MEDICAID [id number] Maria Teresa [id number] [facility] MEDICARE [id number] Maria Teresa [id number] ANSI-Medicare Part B [id number] ANSI-Not a Secondary Insurance [id number] ANSI-Medicaid [id number] ANSI-Medicaid [id number] ANSI-Not a Secondary Insurance [id number] ANSI-Medicare Part B [id number] ANSI-Medicare Part B [id number] ANSI-Medicaid [id number] ANSI-Not a Secondary Insurance [id number] ANSI-Not a Secondary Insurance [id number] ANSI-Medicaid [id number] ANSI-Medicare Part B [id number] ANSI-Medicaid [id number] ANSI-Medicare Part B [id number] ANSI-Not a Secondary Insurance [id number] ANSI-Medicare Part B [id number] ANSI-Not a Secondary Insurance [id number] ANSI-Medicaid [id number] MEDICAID PI PI [facility] MEDICARE PI PI ANSI-Medicare Part B [id number] ANSI-Not a Secondary Insurance [id number] ANSI-Medicaid [id number] ANSI-Medicaid [id number] ANSI-Not a Secondary Insurance [id number] ANSI-Medicare Part B [id number] ANSI-Medicare Part B [id number] ANSI-Not a Secondary Insurance [id number] ANSI-Medicaid [id number] ANSI-Medicare Part B [id number] ANSI-Not a Secondary Insurance [id number] ANSI-Medicaid [id number] ANSI-Not a Secondary Insurance [id number] ANSI-Medicare Part B [id number] ANSI-Medicaid [id number] ANSI-Medicare Part B [id number] ANSI-Medicaid [id number] ANSI-Not a Secondary Insurance [id number] ANSI-Medicaid [id number] ANSI-Medicare Part B [id number] ANSI-Not a Secondary Insurance [id number] ANSI-Not a Secondary Insurance [id number] ANSI-Medicaid [id number] ANSI-Medicare Part B [id number] ANSI-Medicare Part B [id number] ANSI-Not a Secondary Insurance [id number] ANSI-Medicaid [id number] ANSI-Medicaid [id number] ANSI-Not a Secondary Insurance [id number] ANSI-Medicare Part B [id number] ANSI-Medicare Part B [id number] ANSI-Not a Secondary Insurance [id number] ANSI-Medicaid [id number] ANSI-Not a Secondary Insurance [id number] ANSI-Medicare Part B [id number] ANSI-Medicaid [id number] ANSI-Not a Secondary Insurance [id number] ANSI-Medicaid [id number] ANSI-Medicare Part B [id number] ANSI-Medicaid [id number] ANSI-Medicare Part B [id number] ANSI-Not a Secondary Insurance [id number] ANSI-Medicaid [id number] ANSI-Not a Secondary Insurance [id number] ANSI-Medicare Part B [id number] MEDICAID [id number] SP [id number] [facility] [id number] SP [id number] ANSI-Medicare Part B [id number] ANSI-Medicaid [id number] ANSI-Not a Secondary Insurance [id number] ANSI-Medicaid [id number] ANSI-Not a Secondary Insurance [id number] ANSI-Medicare Part B [id number] ANSI-Not a Secondary Insurance [id number] ANSI-Medicaid [id number] ANSI-Medicare Part B [id number] ANSI-Not a Secondary Insurance [id number] ANSI-Medicare Part B [id number] ANSI-Medicaid [id number] ANSI-Medicaid [id number] ANSI-Medicare Part B [id number] ANSI-Not a Secondary Insurance [id number] ANSI-Not a Secondary Insurance [id number] ANSI-Medicare Part B [id number] ANSI-Medicaid [id number] ANSI-Not a Secondary Insurance [id number] ANSI-Medicare Part B [id number] ANSI-Medicaid [id number] ANSI-Not a Secondary Insurance [id number] ANSI-Medicaid [id number] ANSI-Medicare Part B [id number] ANSI-Not a Secondary Insurance [id number] ANSI-Medicaid [id number] ANSI-Medicare Part B [id number] ANSI-Not a Secondary Insurance [id number] ANSI-Medicare Part B [id number] ANSI-Medicaid [id number] ANSI-Medicaid [id number] ANSI-Medicare Part B [id number] ANSI-Not a Secondary Insurance [id number] ANSI-Medicare Part B [id number] ANSI-Medicaid [id number] ANSI-Not a Secondary Insurance [id number] Medicare (Part B) Medicare Primary [id number] Self [id number] Medicaid Medigap Part B [id number] Self [id number] [facility] Dual Cov Plan Commercial [id number] Self [id number] MEDICARE [id number] SP [id number] A MEDICAID [id number] SP [id number] MEDICAID M [id number] S [id number] Medicare (Part B) Medicare Primary Self Medicaid Medigap Part B Self [facility] Dual Cov Plan Commercial Self MEDICARE [id number] SP [id number] A [facility] MCR[facility] UNAVAILABLE SP UNAVAILABLE [place] Medigap Part B Self MEDICAID UNAVAILABLE UNAVAILA BLE MEDICARE C [id number] S [id number] [place] Self Medicare Nat[place] Gov't Servi Medicare Primary Self [facility] [id number] Problems, Conditions, and Diagnoses Code Display Name Description Problem Type Effective Dates Data Source(s) G62.9 83417109 Peripheral polyneuropathy Problem 06/07/2019 12:00:00 AM EDT eCW1 ([facility]) M35.01 96930630 Sjogren's syndrome with keratoconjunctivi tis sicca Problem 06/07/2019 12:00:00 AM EDT eCW1 ([facility]) 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.0 00474909 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 Problem 06/07/2019 12:00:00 AM EDT eCW1 ([facility]) M35.01 95332840 Sjogren's syndrome with keratoconjunctivi tis sicca Problem 06/07/2019 12:00:00 AM EDT eCW1 ([facility]) G32.0 83967540 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 Problem 06/07/2019 12:00:00 AM EDT eCW1 ([facility]) N20.0 Calculus of kidney Nephrolithiasis Problem 06/02/2019 1 2:00:00 AM EDT eCW1 ([facility]) N20.0 Nephrolithiasis Nephrolithiasis Problem 06/02/2019 12:0 0:00 AM EDT eCW1 ([facility]) I65.23 826746117 Bilateral carotid artery stenosis Problem 05/18/2019 12:00:00 AM EST eCW1 ([facility]) I65.23 254512950 Bilateral carotid artery stenosis Problem 05/18/2019 12:00:00 AM EST eCW1 ([facility]) I65.03 12446989 Stenosis of both vertebral arteries Probl em 05/17/2019 12:00:00 AM EST eCW1 ([facility]) G31.84 815423432 Mild cognitive impairment Problem 05/17/2019 12:00:00 AM EST eCW1 ([facility]) I65.03 43492788 Stenosis of both vertebral arteries Probl em 05/17/2019 12:00:00 AM EST [facility]CW1 [facility] [facility] G31.84 [id number] Mild cognitive impairment Problem 05/17/2019 12:00:00 AM EST eCW1 ([facility]) Z72.0 Tobacco use Tobacco use Diagnosis 05/16/2019 08:59:26 AM [facility] I65.23 Occlusion and stenosis of bilateral harrison tid arteries Occlusion and stenosis of bilateral harrison Diagnosis 05/16/2019 08:59:26 AM [facility] I21.3 ST elevation (STEMI) myocardial infarcti on of unspecified site ST elevation (STEMI) myocardial infarcti Diagnosis 05/16/2019 08:59:26 AM [facility] I10 Essential (primary) hypertension Essential (primary) h ypertension Diagnosis 05/16/2019 08:59:26 AM [facility] E78.5 Hyperlipidemia, unspecified Hyperlipidemia, unspecifie d Diagnosis 05/16/2019 08:59:26 AM [facility] Z01.810 Encounter for preprocedural cardiovascul ar examination Encounter for preprocedural cardiovascul Diagnosis 05/16/2019 08:59:26 AM [facility] Surgeries/Procedures Procedure Description Date Indications Data Source(s) Immunization: Flublok Quadrivalent (18 years & older) 0.5mL IM (Influenza) 01/05/2020 12:00:00 AM EDT eCW1 ([facility]) Office Visit, New Pt., Level 4 PC 06/07/2019 12:00:00 AM EDT eCW1 ([facility]) INSERT TEMP BLADDER CATH 05/22/2019 12:00:00 AM EST eCW1 ([facility]) Office Visit, Est Pt., Level 4 PC 05/17/2019 12:00:00 AM EST eCW1 ([facility]) Office Visit, Est Pt., Level 2 FC 05/17/2019 12:00:00 AM EST eCW1 ([facility]) Office Visit, Est Pt., Level 3 PC 05/03/2019 12:00:00 AM EST eCW1 ([facility]) Office Visit, New Pt., Level 2 FC 04/19/2019 12:00:00 AM EST eCW1 ([facility]) Office Visit, New Pt., Level 3 PC 04/19/2019 12:00:00 AM EST eCW1 ([facility]) Results ID Date Data Source [id number] 05/01/2020 09:00:00 AM EST [facility] Name Value Range Interpretation Code Description Data Kimberly rce(s) Supporting Document(s) SARS coronavirus 2 RNA Not Detected [facility] This lab was ordered by [facility] and reported by [facility]. ID Date Data Source [id number] 04/24/2020 10:05:00 AM EST [facility] Name Value Range Interpretation Code Description Data Kimberly rce(s) Supporting Document(s) SARS coronavirus 2 RNA Not Detected [facility] [place] This lab was ordered by [facility] and reported by [facility]. ID Date Data Source [id number] 04/17/2020 10:50:00 AM EST [facility] Name Value Range Interpretation Code Description Data Kimberly rce(s) Supporting Document(s) SARS coronavirus 2 RNA Not Detected [facility] This lab was ordered by [facility] and reported by [facility]. ID Date Data Source [id number] 04/09/2020 03:50:00 PM EST [facility] Name Value Range Interpretation Code Description Data Kimberly rce(s) Supporting Document(s) SARS coronavirus 2 RNA [Presence] in Res piratory specimen by ROMANA with probe detection NEGATIVE [facility] This lab was ordered by [facility] a nd reported by [facility]. ID Date Data Source [id number] 04/04/2020 01:51:00 PM EST [facility] Name Value Range Interpretation Code Description Data Kimberly rce(s) Supporting Document(s) SARS-CoV-2 (COVID 19) NEGATIVE - SARS-CoV-2 (COVID19) [facility] This lab was ordered by [facility] a nd reported by [facility]. ID Date Data Source VITAMIN B12 LEVEL 01/08/2020 11:43:52 AM EDT eCW1 ([facility]) Name Value Range Interpretation Code Description Data Kimberly rce(s) Supporting Document(s) 948 VITAMIN B12 LEVEL eCW1 ([facility]) ID Date Data Source Comprehensive Metabolic Profile (CMP) 01/08/2020 11:43:28 AM EDT eCW1 ([facility]) Name Value Range Interpretation Code Description Data Kimberly rce(s) Supporting Document(s) 91 GLUCOSE, FASTING eCW1 ([facility]) 22 BLOOD UREA NITROGEN eCW1 ([facility]) 0.84 CREATININE FOR GFR eCW1 ([facility]) > 60.0 GLOMERULAR FILTRATION RATE eCW 1 ([facility]) 141 SODIUM LEVEL eCW1 ([facility]) 4.3 POTASSIUM SERUM eCW1 ([facility]) 24 CARBON DIOXIDE LEVEL eCW1 ([facility]) 9.7 CALCIUM LEVEL eCW1 ([facility]) 10 AST/SGOT eCW1 ([facility]) 110 CHLORIDE LEVEL eCW1 ([facility]) 7.2 TOTAL PROTEIN eCW1 ([facility]) 14 ALT/SGPT eCW1 ([facility]) 0.4 BILIRUBIN,TOTAL eCW1 ([facility]) 183 ALKALINE PHOSPHATASE eCW1 ([facility]) 3.5 ALBUMIN eCW1 ([facility]) 0.9 ALBUMIN/GLOBULIN RATIO eCW1 ([facility]) ID Date Data Source CBC with Differential 01/08/2020 11:43:03 AM EDT eCW1 ([facility]) Name Value Range Interpretation Code Description Data Kimberly rce(s) Supporting Document(s) 8.3 WHITE BLOOD COUNT eCW1 ([facility]) 12.8 HEMOGLOBIN eCW1 ([facility]) 4.48 RED BLOOD COUNT eCW1 ([facility]) 90.4 MEAN CORPUSCULAR VOLUME eCW1 ( [facility]) 31.6 MEAN CORPUSCULAR HGB CONC eCW1 ([facility]) 28.6 MEAN CORPUSCULAR HEMOGLOBIN eC W1 ([facility]) 40.5 HEMATOCRIT eCW1 ([facility]) 66.4 NEUTROPHILS % eCW1 ([facility]) 350 PLATELET COUNT, AUTOMATED eCW1 ([facility]) 24.9 LYMPH % eCW1 ([facility]) 13.3 RED CELL DISTRIBUTION WIDTH eC W1 ([facility]) 6.5 MONO % eCW1 ([facility]) 1.1 EOS % eCW1 ([facility]) 0.7 BASO % eCW1 ([facility]) 0.1 EOS # eCW1 ([facility]) 0.5 MONO # eCW1 ([facility]) 2.1 LYMPH # eCW1 ([facility]) 5.5 NEUTROPHILS # eCW1 ([facility]) 0.1 BASO # eCW1 ([facility]) ID Date Data Source VITAMIN D 25-HYDROXY 01/08/2020 11:42:39 AM EDT eCW1 ([facility]) Name Value Range Interpretation Code Description Data Kimberly rce(s) Supporting Document(s) 39.8 TOTAL 25(OH) VITAMIN D eCW1 ([facility]) ID Date Data Source PTH INTACT 01/08/2020 11:42:18 AM EDT eCW1 ([facility]) Name Value Range Interpretation Code Description Data Kimberly rce(s) Supporting Document(s) 53.3 PTH INTACT eCW1 ([facility]) ID Date Data Source PT & APTT 05/17/2019 12:00:00 AM EST eCW1 ([facility]) Name Value Range Interpretation Code Description Data Kimberly rce(s) Supporting Document(s) 1.03 INR eCW1 ([facility]) 13.2 11.8-14.0 PROTHROMBIN TIME eCW1 ([facility]) 29.7 25.0-38.4 PARTIAL THROMBOPLASTIN TI ME eCW1 ([facility]) ID Date Data Source Basic Metabolic Profile (BMP) 05/17/2019 12:00:00 AM EST eCW 1 ([facility]) Name Value Range Interpretation Code Description Data Kimberly rce(s) Supporting Document(s) 21 7-18 BLOOD UREA NITROGEN eCW1 ([facility]) > 60.0 >39 GLOMERULAR FILTRATION RATE eCW 1 ([facility]) 91 70-100 GLUCOSE, FASTING eCW1 ([facility]) 0.80 0.55-1.30 CREATININE FOR GFR eCW1 ([facility]) 25 21-32 CARBON DIOXIDE LEVEL eCW1 ([facility]) 140 136-145 SODIUM LEVEL eCW1 ([facility]) 110 98-107 CHLORIDE LEVEL eCW1 ([facility]) 4.0 3.5-5.1 POTASSIUM SERUM eCW1 ([facility]) 9.3 8.8-10.2 CALCIUM LEVEL eCW1 ([facility]) ID Date Data Source CBC - Complete Blood Count 05/17/2019 12:00:00 AM EST eCW1 ( [facility]) Name Value Range Interpretation Code Description Data Kimberly rce(s) Supporting Document(s) 9.3 4.0-10.0 WHITE BLOOD COUNT eCW1 ([facility]) 38.7 36.0-47.0 HEMATOCRIT eCW1 ([facility]) 12.3 12.0-15.5 HEMOGLOBIN eCW1 ([facility]) 4.15 4.00-5.40 RED BLOOD COUNT eCW1 ([facility]) 93.3 80.0-96.0 MEAN CORPUSCULAR VOLUME e CW1 ([facility]) 12.8 11.5-14.5 RED CELL DISTRIBUTION WID TH eCW1 ([facility]) 29.6 27.0-33.0 MEAN CORPUSCULAR HEMOGLOB IN eCW1 ([facility]) 31.8 32.0-36.5 MEAN CORPUSCULAR HGB CONC eCW1 ([facility]) 311 150-450 PLATELET COUNT, AUTOMATED eCW1 ([facility]) Procedure Social History Code Duration Value Status Description Data Source(s ) Smoking 01/05/2020 12:00:00 AM EDT Former Smoker completed Former Smoker eCW1 ([facility]) Smoking 01/05/2020 12:00:00 AM EDT Former Smoker completed Former Smoker eCW1 ([facility]) Smoking 01/05/2020 12:00:00 AM EDT Former Smoker completed Former Smoker eCW1 ([facility]) Smoking 01/05/2020 12:00:00 AM EDT Former Smoker completed Former Smoker eCW1 ([facility]) Smoking 01/05/2020 12:00:00 AM EDT Former Smoker completed Former Smoker eCW1 ([facility]) Smoking 01/05/2020 12:00:00 AM EDT Former Smoker completed Former Smoker eCW1 ([facility]) Smoking 01/05/2020 12:00:00 AM EDT Former Smoker completed Former Smoker eCW1 ([facility]) Smoking 01/05/2020 12:00:00 AM EDT Former Smoker completed Former Smoker eCW1 ([facility]) Smoking 01/05/2020 12:00:00 AM EDT Former Smoker completed Former Smoker eCW1 ([facility]) Smoking 01/05/2020 12:00:00 AM EDT Former Smoker completed Former Smoker eCW1 ([facility]) Smoking 01/05/2020 12:00:00 AM EDT Former Smoker completed Former Smoker eCW1 ([facility]) Smoking 01/05/2020 12:00:00 AM EDT Former Smoker completed Former Smoker eCW1 ([facility]) Smoking 08/29/2019 12:00:00 AM EDT Former Smoker completed Former Smoker eCW1 ([facility]) Vital Signs ID Date Data Source UNK Name Value Range Interpretation Code Description Data Source(s) Diastolic blood pressure 80 mm[Hg] 80 mm[Hg] eCW1 ([facility]) Systolic blood pressure 130 mm[Hg] 130 mm[Hg] e CW1 ([facility]) Body temperature 98.6 [degF] 98.6 [degF] eCW1 ( [facility]) Respiratory rate 18 /min 18 /min eCW1 ([facility]) Heart rate 86 /min 86 /min eCW1 ([facility]) Body mass index (BMI) [Ratio] 20.04 kg/m2 20.04 kg/m2 W1 ([facility]) Body height 66 [in_i] 66 [in_i] eCW1 ([facility]) Body weight 124.2 [lb_av] 124.2 [lb_av] eCW1 ([facility]) Body weight 53.978 kg 53.978 kg [facility] ([facility]) Body mass index (BMI) [Ratio] 20.4 kg/m2 20.4 k g/m2 [facility] ([facility]) Body weight 119.00 [lb_av] 119.00 [lb_av] MEDEN T ([facility]) Body height 64 [in_i] 64 [in_i] [facility] 5'4" Body temperature 98.9 [degF] 98.9 [degF] MEDENT ([facility]) Diastolic blood pressure 80 mm[Hg] 80 mm[Hg] MEDENT ([facility]) Systolic blood pressure 140 mm[Hg] 140 mm[Hg] M EDENT ([facility], ) Diastolic blood pressure 68 mm[Hg] 68 mm[Hg] eCW1 ([facility]) Systolic blood pressure 116 mm[Hg] 116 mm[Hg] e CW1 ([facility]) Body temperature 99.2 [degF] 99.2 [degF] eCW1 ( [facility]) Respiratory rate 18 /min 18 /min eCW1 ([facility]) Heart rate 91 /min 91 /min eCW1 ([facility]) Body mass index (BMI) [Ratio] 17.91 kg/m2 17.91 kg/m2 eCW1 ([facility]) Body height 66 [in_us] 66 [in_us] eCW1 ([facility]) Body weight Measured [lb_av] eCW1 ([facility]) Diastolic blood pressure mm[Hg] eCW1 ([facility]) Systolic blood pressure 116 mm[Hg] 116 mm[Hg] e CW1 ([facility]) Body temperature 99.1 [degF] 99.1 [degF] eCW1 ( [facility]) Respiratory rate 17 /min 17 /min eCW1 ([facility]) Heart rate 71 /min 71 /min eCW1 ([facility]) Body mass index (BMI) [Ratio] 0.16 kg/m2 0.16 k g/m2 eCW1 ([facility]) Body height 66 [in_us] 66 [in_us] eCW1 ([facility]) Body weight Measured 1 [lb_av] 1 [lb_av] eCW1 ([facility]) Diastolic blood pressure 72 mm[Hg] 72 mm[Hg] eCW1 ([facility]) Systolic blood pressure 132 mm[Hg] 132 mm[Hg] e CW1 ([facility]) Body temperature 97.2 [degF] 97.2 [degF] eCW1 ( [facility]) Respiratory rate 18 /min 18 /min eCW1 ([facility]) Heart rate 70 /min 70 /min eCW1 ([facility]) Body mass index (BMI) [Ratio] 17.91 kg/m2 17.91 kg/m2 eCW1 ([facility]) Body height 66 [in_us] 66 [in_us] eCW1 ([facility]) Body weight Measured 111 [lb_av] 111 [lb_av] eC W1 ([facility]) Body mass index (BMI) [Ratio] 16.14 kg/m2 16.14 kg/m2 eCW1 ([facility]) Body height 66 [in_us] 66 [in_us] eCW1 ([facility]) Body weight Measured 100 [lb_av] 100 [lb_av] eC W1 ([facility]) Diastolic blood pressure 86 mm[Hg] 86 mm[Hg] eCW1 ([facility]) Systolic blood pressure 142 mm[Hg] 142 mm[Hg] e CW1 ([facility]) Respiratory rate 18 /min 18 /min eCW1 ([facility]) Heart rate 78 /min 78 /min eCW1 ([facility]) Diastolic blood pressure 74 mm[Hg] 74 mm[Hg] eCW1 ([facility]) Systolic blood pressure 126 mm[Hg] 126 mm[Hg] e CW1 ([facility]) Body temperature 99.4 [degF] 99.4 [degF] eCW1 ( [facility]) Respiratory rate 17 /min 17 /min eCW1 ([facility]) Heart rate 65 /min 65 /min eCW1 ([facility]) Body mass index (BMI) [Ratio] 16.14 kg/m2 16.14 kg/m2 eCW1 ([facility]) Body height 66 [in_us] 66 [in_us] eCW1 ([facility]) Body weight Measured 100 [lb_av] 100 [lb_av] eC W1 ([facility]) Diastolic blood pressure 72 mm[Hg] 72 mm[Hg] eCW1 ([facility]) Systolic blood pressure 140 mm[Hg] 140 mm[Hg] e CW1 ([facility]) Body temperature 98.3 [degF] 98.3 [degF] eCW1 ( [facility]) Respiratory rate 18 /min 18 /min eCW1 ([facility]) Heart rate 82 /min 82 /min eCW1 ([facility]) Body mass index (BMI) [Ratio] 15.30 kg/m2 15.30 kg/m2 eCW1 ([facility]) Body height 66 [in_us] 66 [in_us] eCW1 ([facility]) Body weight Measured 94.8 [lb_av] 94.8 [lb_av] eCW1 ([facility]) Patient Treatment Plan of Care Planned Activity Planned Date Details Description Data Source (s) Ciprofloxacin 500 MG Oral Tablet 05/23/2019 12:00:00 AM EST eCW1 ([facility]) Famotidine 40 MG Oral Tablet [Pepcid] 05/01/2019 12:00:00 AM EST eCW1 ([facility])
--- NOTE | 2020-05-07 13:19 | REP ---
INDICATION: Altered Mental Status. COMPARISON: Comparison head CT study 04 April 2020.. TECHNIQUE: Helical scanning is acquired. 5 mm axial images were reformatted. Coronal MPR images were generated. FINDINGS: Bone window settings demonstrate an intact bony calvarium. There is no evidence of skull fracture or incidental bony calvarial lesion. The visualized paranasal sinuses appear clear. No intraorbital abnormality is seen. On soft tissue window setting images; the lateral, third, and fourth ventricles are normal in size and position. Castano-white differentiation pattern is normal above and below the tentorium. There are is no evidence of intracranial hemorrhage. No mass, edema, infarction, or midline shift is seen. No extra-axial fluid collection is appreciated. There are advanced small vessel atherosclerotic changes. There is a periventricular white matter lacunar infarct in the right parietal lobe unchanged. Generalized volume loss is again noted. There is fairly heavy vascular calcification at the skull base. IMPRESSION: Generalized volume loss, small vessel changes, old lacunar infarct periventricular white matter right parietal lobe. No change from 04 April 2020 study. No acute intracranial abnormality.. <Electronically signed by Hunter Juan > 05/07/20 [id number]
[2020-05-07 13:31] VITALS: BP 154/59
[2020-05-07 13:42] LABS: ALBUMIN 3.7 GM/DL (3.2-5.2); BILIRUBIN,DIRECT 0.2 MG/DL (0.0-0.2); BILIRUBIN,TOTAL 0.4 MG/DL (0.2-1.0); CALCIUM LEVEL 9.9 MG/DL (8.8-10.2); CK-MB VALUE MASS 46.2 NG/ML (<3.6); CREATININE FOR GFR 8.37 MG/DL (0.55-1.30); MB/CK RELATIVE INDEX 0.81 (< OR =4); POTASSIUM SERUM 8.2 MEQ/L (3.5-5.1); THYROID STIMULATING HORMONE 0.801 uIU/ML (0.358-3.740); TOTAL PROTEIN 8.2 GM/DL (6.4-8.2); TROPONIN I 0.09 NG/ML (< 0.10)
[2020-05-07] MEDS ORDERED: SODIUM BICARBONATE 8.4% INJ 50 ML SYRINGE IV STA (13:44)
[2020-05-07] MEDS ORDERED: DEXTROSE 50% 50 ML SYRINGE IV STA (13:44)
[2020-05-07] MEDS ORDERED: HumuLIN R (REGULAR) INSULIN (NovoLIN R) **100U/ML** PER UNIT IV ONE (13:45)
[2020-05-07] MEDS ORDERED: CALCIUM CHLORIDE 10% 1 GM in D5W 100 ML IV ONE (13:45)
[2020-05-07 14:12] LABS: PHOSPHORUS LEVEL 11.5 MG/DL (2.5-4.9)
[2020-05-07 14:15] LABS: RSV AMPLIFICATION NEGATIVE (NEGATIVE)
[2020-05-07] MEDS ORDERED: SOD POLYSTYRENE SULFONATE SUSP 30 GM/120 ML ENEMA PR ONE (14:15)
[2020-05-07] MEDS ORDERED: D5W 1,000 ML IV ONE (14:15)
[2020-05-07 14:23] LABS: POTASSIUM RANDOM URINE 77.2 MEQ/L; TOTAL PROTEIN,RANDOM URINE 99.4 MG/DL (0.0-12.0)
--- NOTE | 2020-05-07 14:40 | REP ---
INDICATION: urosepsis ?stone COMPARISON: Comparison CT study 7 the April 2019.. TECHNIQUE: Helical scanning is acquired in 4 mm axial images were reformatted. Coronal and sagittal MPR images were generated and reviewed. FINDINGS: The patient is rotated quite a bit to the right apparently unable to cooperate fully with positioning. The lung bases are clear. There is no evidence of pleural effusion or upper abdominal ascites. Surgical clips are noted about the GE junction and in the upper abdomen. The gallbladder appears to be surgically absent. No focal liver lesion or spleen lesion is observed. Patient is status post gastric bypass. There is no evidence of hydronephrosis on either side. There is a 7 mm calcification in the posterior aspect of the lower pole the right kidney. There is 1 other 2 mm calculus in the right kidney posteriorly. No hydronephrosis is seen. No left-sided intrarenal calculus is observed. No ureteral stone is seen. No bladder calculus is observed. Uterus is retroverted and retroflexed and contains some small calcified fibroids. No ovarian lesion or pelvic adenopathy is seen. Small and large bowel loops are unremarkable in the abdomen and pelvis. No evidence of obstruction. No evidence of free air or abnormal fluid collection. There are pins in the left hip. IMPRESSION: There is a 7 mm intrarenal calculus and a small 2 mm intrarenal calculus in the right kidney. No hydronephrosis is seen. Patient is status post gastric bypass and apparently, cholecystectomy. Retroverted retroflexed uterus containing some small calcified fibroids. No acute abdominal or pelvic abnormality. <Electronically signed by Hunter Jaun > 05/07/20 [id number]
--- NOTE | 2020-05-07 14:46 | CR.PDOC ---
General Date of Consultation: May 07, 2020 Consultation REASON FOR CONSULTATION/CHIEF COMPLAINT: Critical illness HISTORY OF PRESENT ILLNESS: Patient is 70 years old female with past mental history of Dementia, CAD, HLD, Chronic left hip pain with left limb shortening after left hip fracture and fixation, Hypertension presented hospital with altered mental status. [facility] [place] [facility]. Patient has been sick for a few days, developed generalized weakness and lethargy today. She was found to have white blood count 20.8, potassium 8.2, sodium 153, lactic acid 4, creatinine 8.3, GFR 5, CPK 5600. UA showed pyuria ALLERGIES: Please see below. HOME MEDICATIONS: Please see below. PAST MEDICAL HISTORY: Dementia, CAD, HLD, Chronic left hip pain with left limb shortening after left hip fracture and fixation, Hypertension PAST SURGICAL HISTORY: COLON RESECTION GER-EN- Y IN [facility]; SUBTOTAL PARTIAL GASTRECTOMY 2007 SBO, INTUSSECEPTION @ [facility], 2016 FAMILY HISTORY: FATHER: MOTHER: , THYROID ISSUES SIBLINGS: ALIVE, ARTHRITIS SOCIAL HISTORY: Unable to obtain due to lethargy REVIEW OF SYSTEMS: Unable to obtain due to lethargy PHYSICAL EXAMINATION: VITAL SIGNS: Please see below. GENERAL APPEARANCE: Ill looking female HEENT: PERRLA, EOMI RESPIRATORY: Diminished lung sounds bilaterally CARDIOVASCULAR: S1-S2 ABDOMEN: Nontender, moderately distended EXTREMITIES: Multiple unhealed wounds from right foot. Right distal leg cold, no pulse, multiple erythemas of both legs NEUROLOGICAL: Does not follow commands, lethargic LABORATORY DATA: Please see below. ASSESSMENT/PLAN: I talked to power of second mate Ric Hernández , I explained our findings and patient's critical condition and very poor prognosis. Patient was transferred to comfort measures only Diagnosis Sepsis Acute kidney injury Hyperkalemia Debility Peripheral vascular diseases UTI Lethargy Metabolic encephalopathy Sepsis Dehydration Stage III wounds of right leg Cellulitis of right leg Vital Signs/I&O Vital Signs Date Time Temp Pulse Resp B/P (MAP) Pulse Ox O2 Delivery O2 Flow Rate FiO2 05/07/20 13:48 91 97 Room Air 05/07/20 13:31 154/59 (90) 05/07/20 12:24 99.4 05/07/20 11:44 23 Laboratory Data Labs 24H Laboratory Tests 2 05/07/20 12:19: Urine Color YELLOW, Urine Appearance CLOUDYH, Urine pH 5.0, Urine Specific [place] 1.017, Urine Protein 2+H, Urine Glucose (UA) NEGATIVE, Urine Ketones TRACEH, Urine Blood 1+H, Urine Nitrite NEGATIVE, Urine Bilirubin 1+H, Urine Urobilinogen 0.2, Urine Leukocyte Esterase 3+H, Urine WBC (Auto) 70H, Urine RBC (Auto) 8H, Urine Hyaline Casts (Auto) 0, Urine Bacteria (Auto) 3+H, Urine Squamous Epithelial Cells 0, Urine Mucus (Auto) SMALL, Urine Sperm (Auto) , Urine Random Osmolality 408L, Urine Random Creatinine 205.0, Urine Random Total Protein 99.4H, Urine Random Sodium 21, Urine Random Potassium 77.2 05/07/20 12:41: Immature Granulocyte % (Auto) 0.4, Neutrophils (%) (Auto) 87.6H, Lymphocytes (%) (Auto) 5.8L, Monocytes (%) (Auto) 6.0, Eosinophils (%) (Auto) 0.0, Basophils (%) (Auto) 0.2, Neutrophils # (Auto) 18.3H, Lymphocytes # (Auto) 1.2L, Monocytes # (Auto) 1.2H, Eosinophils # (Auto) 0.0, Basophils # (Auto) 0.1, Nucleated Red Blood Cells % (auto) 0.0, Anion Gap 20H, Glomerular Filtration Rate 5.0L, Osmolality 409H, Lactic Acid Level 4.0*H, Calcium Level 9.9, Phosphorus Level 11.5H, Total Bilirubin 0.4, Direct Bilirubin 0.2, Aspartate Amino Transf (AST/SGOT) 140H, Alanine Aminotransferase (ALT/SGPT) 58, Alkaline Phosphatase 177H, Ammonia < 10, Total Creatine Kinase 5680H, Creatine Kinase MB 46.2H, Creatine Kinase MB Relative Index 0.81, Troponin I 0.09, Total Protein 8.2, Albumin 3.7, Albumin/Globulin Ratio 0.8L, Thyroid Stimulating Hormone (TSH) 0.801 05/07/20 13:26: Coronavirus (COVID-19)(PCR) NEGATIVE, Influenza Type A (RT-PCR) NEGATIVE, Influenza Type B (RT-PCR) NEGATIVE, Respiratory Syncytial Virus (PCR) NEGATIVE CBC/BMP Laboratory Tests 05/07/20 12:41 Microbiology Microbiology 05/07/20 Urine Culture, Received Pending 05/07/20 Blood Culture, Received Pending 05/07/20 Blood Culture, Received Pending Allergies Coded Allergies: No Known Allergies (Verified , 05/16/19) Home Medications Scheduled Aspirin (Aspirin EC) 81 Mg Tablet.dr, 81 MG PO DAILY, (Reported) Atorvastatin Calcium (Atorvastatin Calcium) 10 Mg Tablet, 10 MG PO DAILY, (Reported) Carvedilol (Carvedilol) 6.25 Mg Tablet, 6.25 MG PO BID, (Reported) Clopidogrel Bisulfate (Plavix) 75 Mg Tablet, 75 MG PO DAILY, (Reported) Pantoprazole Sodium (Protonix) 40 Mg Granpkt.dr, 40 MG PO DAILY for 30 Days, #30 (Reported) Scheduled PRN Acetaminophen (Acetaminophen) 500 Mg Tablet, 1,000 MG PO Q6H PRN for PAIN, (Reported) ARIANE SILVA DO May 07, 2020 14:46
--- NOTE | 2020-05-07 19:45 | ECGEPIP ---
[facility] - ED Test Date: 2020-05-07 Pat Name: JOE HILL Department: Room: - Gender: Female [employer]: jeffery : [id number] Requested By: Carmelina Maldonado Order Number: [id number] Reading MD: Rajan Woodward Measurements Intervals Peck Rate: 96 P: 67 IA: 100 QRS: 70 QRSD: 90 T: 135 QT: 352 QTc: 444 Interpretive Statements Sinus rhythm with short IA Left ventricular hypertrophy with repolarization abnormality SIMILAR TO 04/04/20 Electronically Signed on 05-07-2020 19:45:25 EST by Rajan Woodward
[2020-05-08 01:24] LABS: MAGNESIUM LEVEL 4.1 MG/DL (1.8-2.4); URIC ACID 15.6 MG/DL (2.6-6.0)
== END 2020-05-07 15:35 | disposition home or self-care (01) ==
LOC: M ED 11:18 → EDBD 11:18 → M ED 15:35
DX: N17.8 Other acute kidney failure (principal); E87.5 Hyperkalemia; I10 Essential (primary) hypertension; I65.29 Occlusion and stenosis of unspecified carotid artery; E78.5 Hyperlipidemia, unspecified; F03.90 Unspecified dementia, unspecified severity, without behavioral disturbance, psychotic disturbance, mood disturbance, and anxiety; K27.9 Peptic ulcer, site unspecified, unspecified as acute or chronic, without hemorrhage or perforation; I25.10 Atherosclerotic heart disease of native coronary artery without angina pectoris; Z79.899 Other long term (current) drug therapy; Z79.82 Long term (current) use of aspirin; Z79.01 Long term (current) use of anticoagulants; Z87.891 Personal history of nicotine dependence
CPT/HCPCS: 36415; 70450; 71045; 74176; 80048; 80076; 81001; 82140; 82550; 82553; 82570; 83605; 83630; 83735; 83930; 83935; 84100; 84133; 84156; 84300; 84443; 84484; 84550; 85025; 87040; 87077; 87088; 87186; 87505; 87631; 93005; 93041; 94760; 96365; 96367; 96375; 99285; J0696

== ENCOUNTER → 2020-05-07 | Outpatient (REF) | payer MEDICARE, MEDICAID | LOC: SKLAB3 10:46 | DX: R53.83 Other fatigue (principal) ==